=== PATIENT | male | born 1960 | race Caucasian/White ===

== ENCOUNTER 2021-07-14 18:00 | Emergency (ER) | payer MEDICARE ==
[~2021-07-14] VITALS: Ht 175.3 cm; Wt 110.0 kg
--- NOTE | 2021-07-14 18:17 | PHYS DOC ---
General Adult EDM: Chief Complaint: ABNORMAL LABS HPI: HPI: Patient is a 61 year old male who is here for evaluation of low hemoglobin. He had outpatient labs drawn 2 days ago at one of his physician offices, and he received a call this afternoon telling him that he has persistent anemia, and that he should be set up for a transfusion. His hemoglobin is reportedly in the range of 7, further information he was given today. He has baseline hemoglobin ranges from 9-12, based on review of his MyChart results he showed me on his phone. His knowledge, he has not ever had a formal anemia work-up. He is unsure of the type of anemia he might have. But he has been told for years that he has a low hemoglobin. He denies any physical pain or discomfort. Denies abdominal pain. Denies chest pain. Denies dyspnea. Denies melena or hematochezia or hematemesis. Denies hematuria. He denies urinary symptoms. He denies weight loss, night sweats. He does report generalized fatigue and malaise, which is been present for many months. He had a message from his physi aisha's office telling him to get set up for a transfusion, and when he called them back he reports that he was told by the nurse to come to the ER to receive blood products. Review of Systems: Review of Systems: Constitutional: Denies fever or chills. Reports chronic generalized malaise and fatigue. Denies weight loss. Eyes: Denies change in visual acuity. [] HENT: Denies nasal congestion or sore throat. [] Respiratory: Denies cough or shortness of breath. [] Cardiovascular: Denies chest pain or edema. [] GI: Denies abdominal pain, nausea, vomiting, bloody stools or diarrhea. Denies melena or hematochezia. Denies hematemesis. : Denies dysuria, hematuria. Musculoskeletal: Denies back pain or joint pain. [] Integument: Denies rash. [] Neurologic: Denies headache, focal weakness or sensory changes. [] Endocrine: Denies polyuria or polydipsia. [] Lymphatic: Denies swollen glands. [] Psychiatric: Denies depression or anxiety. [] Heart Score: C/O Chest Pain: No Risk Factors: Risk Factors: DM, Current or recent (<one month) smoker, HTN, HLP, family history of CAD, obesity. Risk Scores: Score 0 - 3: 2.5% MACE over next 6 weeks - Discharge Home Score 4 - 6: 20.3% MACE over next 6 weeks - Admit for Clinical Observation Score 7 - 10: 72.7% MACE over next 6 weeks - Early Invasive Strategies Physical Exam: PE: Constitutional: Well developed, well nourished, no acute distress, non-toxic appearance. [] HENT: Normocephalic, atraumatic, mucous membranes are moist. Eyes: Sclera are clear and anicteric. No significant conjunctival pallor. Neck: Normal range of motion, no tenderness, supple, no stridor. [] Cardiovascular:Heart rate regular rhythm, +2 radial ulcers bilaterally. Well- perfused appearing. Lungs & Thorax: Bilateral breath sounds clear to auscultation [] Abdomen: Is obese, soft, nondistended, nontender to palpation. Normal bowel sounds noted. Skin: Warm, dry, no erythema, no rash. [] Back: No tenderness, no CVA tenderness. [] Extremities: No tenderness, no cyanosis, no clubbing, ROM intact, no calf tenderness. Neurologic: Alert and oriented X 3, normal motor function, normal sensory function, no focal deficits noted. [] Psychologic: Affect normal, judgement normal, mood normal. [] EKG: EKG: [] Radiology/Procedures: Radiology/Procedures: [] Course & Med Decision Making: Course & Med Decision Making Pertinent Labs and Imaging studies reviewed. (See chart for details) [] Dragon Disclaimer: Dragdavid Disclaimer: This electronic medical record was generated, in whole or in part, using a voice recognition dictation system. MELLO NELSON DO Jul 14, 2021 18:17
[2021-07-14 18:47] LABS: BASO # 0.1 x10^3/uL (0.0-0.2); BASO % 1 % (0-3); EOS # 0.3 x10^3/uL (0.0-0.7); EOS % 4 % (0-3); HEMATOCRIT 22.4 % (39.0-53.0); HEMOGLOBIN 7.5 g/dL (13.0-17.5); LYMPH # 1.2 x10^3/uL (1.0-4.8); LYMPH % 16 % (24-48); MEAN CORPUSCULAR HEMOGLOBIN 29 pg (25-35); MEAN CORPUSCULAR HGB CONC 34 g/dL (31-37); MEAN CORPUSCULAR VOLUME 87 fL (79-100); MONO # 0.5 x10^3/uL (0.0-1.1); MONO % 7 % (0-9); NEUT # 5.2 x10^3/uL (1.8-7.7); NEUT % 72 % (31-73); PLATELET COUNT 231 x10^3/uL (140-400); RED BLOOD COUNT 2.57 x10^6/uL (4.30-5.70); RED CELL DISTRIBUTION WIDTH 14.1 % (11.5-14.5); WHITE BLOOD COUNT 7.1 x10^3/uL (4.0-11.0)
[2021-07-14 18:58] LABS: CALCIUM 7.7 mg/dL (8.5-10.1); CREATININE 4.2 mg/dL (0.7-1.3); GFR 14.5; POTASSIUM 5.3 mmol/L (3.5-5.1)
[2021-07-14 20:01] VITALS: BP 157/77
[2021-08-03] MEDS ORDERED: LEVO200T5 PO (10:25)
[2021-08-03] MEDS ORDERED: CALC0.5C8 PO (10:25)
[2021-08-03] MEDS ORDERED: LOSA100T14 PO (10:25)
[2021-08-03] MEDS ORDERED: TORS20TA2 PO (10:25)
[2021-08-03] MEDS ORDERED: ATOR40TA59 PO (10:25)
[2021-08-03] MEDS ORDERED: HYDR100T24 PO (10:25)
[2021-08-03] MEDS ORDERED: AMLO-187 PO (10:25)
[2021-08-03] MEDS ORDERED: DOXA2TAB2 PO (10:25)
[2021-08-03] MEDS ORDERED: CARV6.2511 PO (10:25)
== END 2021-07-14 20:00 | disposition home or self-care (01) ==
LOC: ER 18:00
DX: D64.9 Anemia, unspecified (principal); R53.81 Other malaise; R53.83 Other fatigue
CPT/HCPCS: 36415; 80048; 83735; 85025; 86850; 86900; 86901; 86920; 99283

== ENCOUNTER 2021-07-21 10:16 | Emergency (ER) | payer MEDICARE ==
[~2021-07-21] VITALS: Ht 175.3 cm; Wt 112.8 kg
--- NOTE | 2021-07-21 10:43 | PHYS DOC ---
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 He states he has been short of breath and has had gen eralized fatigue. Patient states he has been taking iron supplement. Patient has a history of Covid, former smoker, kidney disease, anemia, gastric bypass, diabetes, hypertension, high cholesterol. Denies any pain at this time. Denies headache, dizziness, nausea, vomiting, abdominal pain, diarrhea, fever, chest pain, syncope, numbness or tingling, focal weakness. 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 [] Eyes: Denies change in visual acuity. [] HENT: Denies nasal congestion or sore throat. [] Respiratory: Denies cough or +shortness of breath. [] Cardiovascular: Denies chest pain or edema. [] GI: Denies abdominal pain, nausea, vomiting, bloody stools or diarrhea. [] : Denies dysuria. [] Musculoskeletal: Denies back pain or joint pain. [] Integument: Denies rash. [] Neurologic: Denies headache, focal weakness or sensory changes. [] Endocrine: Denies polyuria or polydipsia. [] Lymphatic: Denies swollen glands. [] Psychiatric: Denies depression or anxiety. 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 [] HENT: Normocephalic, atraumatic, bilateral external ears normal, oropharynx moist, no oral exudates, nose normal. [] Eyes: PERRLA, EOMI, conjunctiva normal, no discharge. [] Neck: Normal range of motion, no tenderness, supple, no stridor. [] Cardiovascular:Heart rate regular rhythm, no murmur [] Lungs & Thorax: Bilateral breath sounds clear to auscultation [] Abdomen: Bowel sounds normal, soft, no tenderness, no masses, no pulsatile masses. [] Skin: Warm, dry, no erythema, no rash. Pale [] Back: No tenderness, no CVA tenderness. [] Extremities: No tenderness, no cyanosis, no clubbing, ROM intact, no edema. [] Neurologic: Alert and oriented X 3, normal motor function, normal sensory function, no focal deficits noted. [] Psychologic: Affect normal, judgement normal, mood normal. [] (VERNA VANEGAS APRN) Current Patient Data: Vital Signs: Vital Signs Date Time Temp Pulse Resp B/P (MAP) Pulse Ox O2 Delivery O2 Flow Rate FiO2 07/21/21 10:26 98.4 71 20 182/79 (113) 98 Room Air 98.4 (VERNA VANEGAS APRN) EKG: EK and read by Dr. Jones as a sinus rhythm with a prolonged QT but no STEMI. (VERNA VANEGAS APRN) Radiology/Procedures: Radiology/Procedures: [] Impression: [facility] [address] [place] [address] IMAGING REPORT Signed PATIENT: STEPHANIE GARCIA ACCOUNT: [id number] : 1960 LOCATION: ER AGE: 61 SEX: M EXAM STATUS: PRE ER ORD. PHYSICIAN: VERNA VANEGAS APRN REASON: SOA, DIZZINESS PROCEDURE: PORTABLE CHEST 1V XR CHEST 1V History: Reason: SOA, DIZZINESS / Spl. Instructions: / History: Comparison: April 21, 2021 Findings: Mild ill-defined mid and bibasilar opacities. No pleural effusion. No pneumothorax. Enlarged cardiac size, unchanged. Prior granulomatous disease within the chest. Impression: 1. Mild ill-defined mid and bibasilar opacities. Findings are overall decreased compared to prior. 2. Unchanged enlarged cardiac size. Electronically signed by: Ortiz Doe DO (07/21/2021 11:11 AM) [id number] DICTATED and SIGNED BY: ORTIZ DOE DO DATE: 07/21/21 [id number] (VERNA VANEGAS APRN) Course & Med Decision Making: Course & Med Decision Making Pertinent Labs and Imaging studies reviewed. (See chart for details) See HPI. Alert and oriented x4. Ambulatory steady gait. Speaks in full clear sentences. Pale. Lungs are clear in all lobes. Afebrile. Blood work shows chronic findings. Hemoglobin is 7.4. Chest x-ray stable. [] (VERNA VANEGAS APRN) Course & Med Decision Making I have participated in the care of this patient and I have reviewed and agree with all pertinent clinical information above including history, exam, and recommendations. Nephrology was consulted, discussed care with Dr. Cunningham, nothing else to do from nephrology standpoint today per Dr. Cunningham. Proceeded with plan to discharge. Clair Jones DO (CLAIR JONES DO) Dragon Disclaimer: Dragdavid Disclaimer: This electronic medical record was generated, in whole or in part, using a voice recognition dictation system. (VERNA VANEGAS APRN) Departure Departure Impression: Primary Impression: Chronic anemia Disposition: 01 HOME / SELF CARE / HOMELESS Admitting Physician: ARJUN (VERNA VANEGAS APRN) Condition: STABLE Referrals: CANDELARIO FLORES MD (PCP) Patient Instructions: Anemia, FAQs Additional Instructions: Follow-up with your primary care provider. If shortness of breath or you become dizzy or have chest pain return to emergency room. Drink plenty of fluids. Take your medication as prescribed. VERNA VANEGAS APRN Jul 21, 2021 10:43 CLAIR JONES DO Jul 21, 2021 12:05
[2021-07-21 10:54] LABS: BASO % 1 % (0-3); EOS # 0.3 x10^3/uL (0.0-0.7); EOS % 4 % (0-3); HEMATOCRIT 23.1 % (39.0-53.0); HEMOGLOBIN 7.4 g/dL (13.0-17.5); LYMPH # 1.4 x10^3/uL (1.0-4.8); LYMPH % 20 % (24-48); MEAN CORPUSCULAR HEMOGLOBIN 28 pg (25-35); MEAN CORPUSCULAR HGB CONC 32 g/dL (31-37); MEAN CORPUSCULAR VOLUME 88 fL (79-100); MONO # 0.8 x10^3/uL (0.0-1.1); MONO % 11 % (0-9); NEUT # 4.7 x10^3/uL (1.8-7.7); NEUT % 65 % (31-73); PLATELET COUNT 260 x10^3/uL (140-400); RED BLOOD COUNT 2.63 x10^6/uL (4.30-5.70); RED CELL DISTRIBUTION WIDTH 14.3 % (11.5-14.5); WHITE BLOOD COUNT 7.3 x10^3/uL (4.0-11.0)
[2021-07-21 11:02] LABS: CALCIUM 7.9 mg/dL (8.5-10.1); GFR 15.4; POTASSIUM 5.1 mmol/L (3.5-5.1)
[2021-07-21 11:08] LABS: ALBUMIN 3.2 g/dL (3.4-5.0); ALBUMIN/GLOBULIN RATIO 0.9 (1.0-1.7); TOTAL BILIRUBIN 0.4 mg/dL (0.2-1.0); TOTAL PROTEIN 6.9 g/dL (6.4-8.2)
--- NOTE | 2021-07-21 11:13 | RAD ---
XR CHEST 1V History: Reason: SOA, DIZZINESS / Spl. Instructions: / History: Comparison: April 21, 2021 Findings: Mild ill-defined mid and bibasilar opacities. No pleural effusion. No pneumothorax. Enlarged cardiac size, unchanged. Prior granulomatous disease within the chest. Impression: 1. Mild ill-defined mid and bibasilar opacities. Findings are overall decreased compared to prior. 2. Unchanged enlarged cardiac size. Electronically signed by: Ortiz Doe DO (07/21/2021 11:11 AM) [id number]
[2021-07-21 11:25] VITALS: BP 168/72
--- NOTE | 2021-07-21 18:05 | EKG ---
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
[2021-08-03] MEDS ORDERED: TORS20TA2 PO (10:25)
[2021-08-03] MEDS ORDERED: CALC0.5C8 PO (10:25)
[2021-08-03] MEDS ORDERED: AMLO-187 PO (10:25)
[2021-08-03] MEDS ORDERED: DOXA2TAB2 PO (10:25)
[2021-08-03] MEDS ORDERED: CARV6.2511 PO (10:25)
[2021-08-03] MEDS ORDERED: LEVO200T5 PO (10:25)
[2021-08-03] MEDS ORDERED: LOSA100T14 PO (10:25)
[2021-08-03] MEDS ORDERED: ATOR40TA59 PO (10:25)
[2021-08-03] MEDS ORDERED: HYDR100T24 PO (10:25)
== END 2021-07-21 11:53 | disposition home or self-care (01) ==
LOC: ER 10:16
DX: D64.9 Anemia, unspecified (principal); R06.02 Shortness of breath; R53.83 Other fatigue; Z87.891 Personal history of nicotine dependence
CPT/HCPCS: 36415; 71045; 80053; 83735; 83880; 84484; 85025; 93005; 99283-25

== ENCOUNTER → 2021-08-09 | Outpatient (CLI) | payer MEDICARE ==
[2021-08-03 09:53] VITALS: BP 149/64
[~2021-08-09] MED LIST: AMLO-187 PO; ATOR40TA59 PO; CALC0.5C8 PO; CARV6.2511 PO; DOXA2TAB2 PO; HYDR100T24 PO; LEVO200T5 PO; LOSA100T14 PO; TORS20TA2 PO
[2021-08-09 13:59] LABS: HEMATOCRIT 22.2 % (39.0-53.0); HEMOGLOBIN 7.2 g/dL (13.0-17.5)
== END ==
LOC: LAB 13:32
PROVIDERS: ATTEND Internal Medicine Nephrology
DX: N18.32 Chronic kidney disease, stage 3b (principal); D63.1 Anemia in chronic kidney disease
CPT/HCPCS: 36415; 82728; 83540; 83550; 85014; 85018

== ENCOUNTER → 2021-08-17 | Outpatient (CLI) | payer MEDICARE ==
[2021-08-03 09:53] VITALS: BP 149/64
[2021-08-17 11:55] LABS: ALBUMIN 2.6 g/dL (3.4-5.0); CALCIUM 7.7 mg/dL (8.5-10.1); CREATININE 3.5 mg/dL (0.7-1.3); PHOSPHORUS 4.6 mg/dL (2.6-4.7); POTASSIUM 4.6 mmol/L (3.5-5.1)
[2021-08-18 11:19] LABS: CALCIUM PTH 8.1 mg/dL (8.6-10.2); CREATININE PTH 3.57 mg/dL (0.76-1.27); PHOSPHORUS PTH 4.4 mg/dL (2.8-4.1); PTH INTACT 210 pg/mL (15-65)
== END ==
LOC: LAB 11:11
PROVIDERS: ATTEND Internal Medicine Nephrology
DX: I12.9 Hypertensive chronic kidney disease with stage 1 through stage 4 chronic kidney disease, or unspecified chronic kidney disease (principal); E11.21 Type 2 diabetes mellitus with diabetic nephropathy; N18.4 Chronic kidney disease, stage 4 (severe); R80.9 Proteinuria, unspecified; E87.5 Hyperkalemia; E21.3 Hyperparathyroidism, unspecified; D63.1 Anemia in chronic kidney disease; E87.2 Acidosis; Z68.35 Body mass index [BMI] 35.0-35.9, adult
CPT/HCPCS: 36415; 80069; 82728; 83540; 83550; 83970

== ENCOUNTER → 2021-10-03 | Outpatient (CLI) | payer MEDICARE ==
[2021-09-28 14:44] VITALS: BP 164/78
[2021-10-03 13:59] LABS: BASO # 0.1 x10^3/uL (0.0-0.2); BASO % 2 % (0-3); EOS # 0.2 x10^3/uL (0.0-0.7); EOS % 4 % (0-3); HEMOGLOBIN 7.9 g/dL (13.0-17.5); LYMPH # 0.8 x10^3/uL (1.0-4.8); LYMPH % 13 % (24-48); MEAN CORPUSCULAR HEMOGLOBIN 28 pg (25-35); MEAN CORPUSCULAR HGB CONC 32 g/dL (31-37); MEAN CORPUSCULAR VOLUME 88 fL (79-100); MONO # 0.4 x10^3/uL (0.0-1.1); MONO % 8 % (0-9); NEUT # 4.2 x10^3/uL (1.8-7.7); NEUT % 73 % (31-73); PLATELET COUNT 256 x10^3/uL (140-400); RED BLOOD COUNT 2.84 x10^6/uL (4.30-5.70); RED CELL DISTRIBUTION WIDTH 14.6 % (11.5-14.5); WHITE BLOOD COUNT 5.7 x10^3/uL (4.0-11.0)
[2021-10-03 14:21] LABS: ALBUMIN 2.8 g/dL (3.4-5.0); CALCIUM 7.4 mg/dL (8.5-10.1); CREATININE 4.1 mg/dL (0.7-1.3); PHOSPHORUS 5.9 mg/dL (2.6-4.7); POTASSIUM 5.8 mmol/L (3.5-5.1)
[2021-10-04 01:09] LABS: CALCIUM PTH 7.9 mg/dL (8.6-10.2); CREATININE PTH 4.01 mg/dL (0.76-1.27); PHOSPHORUS PTH 5.6 mg/dL (2.8-4.1); PTH INTACT 232 pg/mL (15-65)
== END ==
LOC: LAB 13:23
PROVIDERS: ATTEND Nurse Practitioner Adult Health
DX: I12.9 Hypertensive chronic kidney disease with stage 1 through stage 4 chronic kidney disease, or unspecified chronic kidney disease (principal); E11.22 Type 2 diabetes mellitus with diabetic chronic kidney disease; E11.21 Type 2 diabetes mellitus with diabetic nephropathy; N18.4 Chronic kidney disease, stage 4 (severe); R80.9 Proteinuria, unspecified; E87.5 Hyperkalemia; E21.3 Hyperparathyroidism, unspecified; Z68.33 Body mass index [BMI] 33.0-33.9, adult
CPT/HCPCS: 36415; 80069; 83970; 85025

== ENCOUNTER 2021-11-03 17:24 | Inpatient (IN) | payer MEDICARE ==
[~2021-11-03] VITALS: Ht 175.3 cm; Wt 91.7 kg
[2021-11-03 17:53] LABS: BASE EXCESS ABG -13 mmol/L (-3-3); HCO3 ABG 13 mmol/L (21-28); PCO2 ABG 31 mmHg (35-46); PO2 ABG 66 mmHg (65-108); SAT O2 ABG 91 % (92-99)
[2021-11-03 17:54] LABS: FIO2 ABG 32% 3L NC
[2021-11-03] MEDS ORDERED: IV NORMAL SALINE 500ML BAG 500 ML IV ONE (18:00)
[2021-11-03 18:15] LABS: INFLUENZA A PATIENT NEGATIVE (NEGATIVE); INFLUENZA B PATIENT NEGATIVE (NEGATIVE)
[2021-11-03 18:24] LABS: BASO # 0.1 x10^3/uL (0.0-0.2); BASO % 1 % (0-3); EOS # 0.1 x10^3/uL (0.0-0.7); EOS % 1 % (0-3); HEMATOCRIT 23.9 % (39.0-53.0); HEMOGLOBIN 7.8 g/dL (13.0-17.5); LYMPH # 0.6 x10^3/uL (1.0-4.8); LYMPH % 6 % (24-48); MEAN CORPUSCULAR HEMOGLOBIN 28 pg (25-35); MEAN CORPUSCULAR HGB CONC 33 g/dL (31-37); MEAN CORPUSCULAR VOLUME 85 fL (79-100); MONO # 0.8 x10^3/uL (0.0-1.1); MONO % 8 % (0-9); NEUT # 8.5 x10^3/uL (1.8-7.7); NEUT % 85 % (31-73); PLATELET COUNT 412 x10^3/uL (140-400); RED BLOOD COUNT 2.81 x10^6/uL (4.30-5.70); RED CELL DISTRIBUTION WIDTH 15.3 % (11.5-14.5); WHITE BLOOD COUNT 10.1 x10^3/uL (4.0-11.0)
[2021-11-03 18:32] LABS: CALCIUM 7.7 mg/dL (8.5-10.1); CREATININE 4.4 mg/dL (0.7-1.3); GFR 13.8; POTASSIUM 5.3 mmol/L (3.5-5.1)
[2021-11-03 18:38] LABS: ALBUMIN 2.4 g/dL (3.4-5.0); ALBUMIN/GLOBULIN RATIO 0.6 (1.0-1.7); TOTAL BILIRUBIN 0.5 mg/dL (0.2-1.0); TOTAL PROTEIN 6.3 g/dL (6.4-8.2)
--- NOTE | 2021-11-03 18:40 | PHYS DOC ---
Past Medical History Additional Past Medical Histor: CKD,COVID-19 Past Surgical History: Other Additional Past Surgical Histo: GASTRIC BYPASS,RENAL INSUFFIENCY,R FOOT 05/06 @ [facility] Smoking Status: Former Smoker Alcohol Use: Rarely General Adult EDM: Chief Complaint: SHORTNESS OF BREATH HPI: HPI: Patient is a 61 year old male who presents with chronic pruritus for the last week and recently returned. He states the whole time he was stayed in the cabin room most of the. He states he just has not been feeling well and has been short of breath and coughing up green mucus. He states that he has been tested for Covid 3 times in the last 3 weeks level came back negative. Upon arrival patient was 80% on room air. He does not normally wear oxygen. He is placed on 3 L and is at 92%. He has a left arm fistula. He has not had dialysis yet. He does see Dr. Che for CKD. He has a history of CKD, COVID-19, gastric bypass, renal insufficiency, former smoker, sleep apnea for which she wears a CPAP at night. Review of Systems: Review of Systems: Constitutional: Denies fever or chills. [] Eyes: Denies change in visual acuity. [] HENT: Denies nasal congestion or +sore throat. [] Respiratory: Denies cough or +shortness of breath. [] Cardiovascular: Denies chest pain or edema. [] GI: Denies abdominal pain, nausea, vomiting, bloody stools or diarrhea. [] : Denies dysuria. [] Musculoskeletal: Denies back pain or joint pain. [] Integument: Denies rash. [] Neurologic: + headache, denies focal weakness or sensory changes. [] Endocrine: Denies polyuria or polydipsia. [] Lymphatic: Denies swollen glands. [] Psychiatric: Denies depression or anxiety. [] Heart Score: C/O Chest Pain: No HEART Score for Chest Pain: HEART Score for Chest Pain Response (Comments) Value History Slighlty/Non-Suspicious 0 ECG Nonspecific Repolarizatio 1 Age >45 - < 65 1 Risk Factors No Risk Factors 0 Troponin < Normal Limit 0 Total 2 Risk Factors: Risk Factors: DM, Current or recent (<one month) smoker, HTN, HLP, family history of CAD, obesity. Risk Scores: Score 0 - 3: 2.5% MACE over next 6 weeks - Discharge Home Score 4 - 6: 20.3% MACE over next 6 weeks - Admit for Clinical Observation Score 7 - 10: 72.7% MACE over next 6 weeks - Early Invasive Strategies Current Medications: Current Medications Medications (Trade) Dose Ordered Sig/Catherine Start Time Stop Time Status Last Admin Dose Admin Sodium Chloride 500 ml @ 500 mls/hr 1X ONCE 11/03/21 18:00 11/03/21 18:59 Allergies: Allergies: Allergies Coded Allergies Type Severity Reaction Last Updated Verified No Known Drug Allergies 10/12/21 No Physical Exam: PE: Constitutional: Well developed, well nourished, no acute distress, non-toxic appearance. [] HENT: Normocephalic, atraumatic, bilateral external ears normal, oropharynx moist, no oral exudates, nose normal. [] Eyes: PERRLA, EOMI, conjunctiva normal, no discharge. [] Neck: Normal range of motion, no tenderness, supple, no stridor. [] Cardiovascular:Heart rate regular rhythm, no murmur [] Lungs & Thorax: Bilateral upper breath sounds clear and lower diminished to auscultation [] Abdomen: Bowel sounds normal, soft, no tenderness, no masses, no pulsatile masses. [] Skin: Warm, dry, no erythema, no rash. [] Back: No tenderness, no CVA tenderness. [] Extremities: No tenderness, no cyanosis, no clubbing, ROM intact, no edema. [] Neurologic: Alert and oriented X 3, normal motor function, normal sensory function, no focal deficits noted. [] Psychologic: Affect normal, judgement normal, mood normal. [] Current Patient Data: Labs: Laboratory Tests Test 11/03/21 17:54 O2 Saturation 91 % (92-99) L Arterial Blood pH 7.24 (7.35-7.45) L Arterial Blood pCO2 at Patient Temp 31 mmHg (35-46) L Arterial Blood pO2 at Patient Temp 66 mmHg (65-108) Arterial Blood HCO3 13 mmol/L (21-28) L Arterial Blood Base Excess -13 mmol/L (-3-3) L FiO2 32% 3l nc EKG: EK and read by Dr. Fernandez as sinus rhythm and no STEMI Radiology/Procedures: Radiology/Procedures: [] Impression: [facility] [address] [place] [address] IMAGING REPORT Signed PATIENT: STEPHANIE GARCIA ACCOUNT: [id number] : 1960 LOCATION: [address] [place] [address] AGE: 61 SEX: M EXAM STATUS: ADM IN ORD. PHYSICIAN: VERNA VANEGAS APRN REASON: SOA PROCEDURE: PORTABLE CHEST 1V INDICATION: Reason: SOA / Spl. Instructions: / History: COMPARISON: July 21, 2021 FINDINGS: Single view of chest obtained. Enlarged cardiomediastinal silhouette is again seen. Multifocal opacities throughout the bilateral lungs. Degenerative changes spine IMPRESSION: * Multifocal opacities throughout the bilateral lungs. This could be secondary to bilateral pneumonia with edema also in the differential. Electronically signed by: Ross Finn MD (11/03/2021 9:49 PM) [id number] DICTATED and SIGNED BY: ROSS FINN MD DATE: 11/03/21 [id number] 0 Course & Med Decision Making: Course & Med Decision Making Pertinent Labs and Imaging studies reviewed. (See chart for details) See HPI. Alert and oriented x4. Speaks in full clear sentences. Skin pink warm and dry. Lungs are clear in upper lobes and diminished in lower lobes. Bilateral lower leg 2+ swelling. Afebrile. Patient on 3 L is 92%. Troponin is elevated at 304 and I have called Dr. Sheikh and sent him the EKG. He states nothing else to do at this time. Patient is admitted to Dr. Scruggs. I have given the patient azithromycin and Rocephin antibiotic and 500 mL bolus fluid. Patient has now been placed on 6 L of oxygen he is getting anxious but he is at 91-92%. He is coughing up green sputum. I have spoken to Dr Rahman to to let them know that the patient is here and the findings upon examination and his work-up today. They state that they will follow along and check on him in the morning. Chest x-ray read by Dr. Kumari as multifocal pneumonia. 2006: Patient began to desat off of 6 L down into the 80s. Patient was placed on a nonrebreather and he is now 91%. I have called respiratory for BiPAP. Per Dr. Kumari we have now given 60 mg of Lasix IV. Patient is a full code and states he does want everything done for him if he were to stop breathing or if his heart were to stop. [] Dragon Disclaimer: Dragon Disclaimer: This electronic medical record was generated, in whole or in part, using a voice recognition dictation system. COVID-19 Patient Risks: Age 65 or older: No Sign of co-morbidity: Yes Exp to person + for COVID: No Exp to PUI: No Travel from affected area: Yes Lower respiratory symptoms: Yes Fever: No Other: Yes (headache, ) PPE Use: Full PPE with N95 mask or PAPR: Yes Departure Departure Impression: Primary Impression: Pneumonia Qualified Codes: J18.9 - Pneumonia, unspecified organism Additional Impressions: Hypoxia Person under investigation for COVID-19 Elevated troponin Disposition: ADMITTED INPATIENT Admitting Physician: ARJUN Condition: STABLE Referrals: ACNDELARIO FLORES MD (PCP) VERNA VANEGAS BLENDING OPERATOR Nov 03, 2021 18:39
[2021-11-03] MEDS ORDERED: IPRATRPIUM/ALBUTEROL 0.5/2.5MG 3 ML NEBU. NEB ONE (19:00)
[2021-11-03] MEDS ORDERED: AZITHROMYCIN 500 MG in IV NORMAL SALINE 250ML 250 ML IV ONE (19:00)
[2021-11-03] MEDS ORDERED: cefTRIAXone IV Push 1 GM VIAL. IVP ONE (19:00)
[2021-11-03] MEDS ORDERED: methylPREDNISolone SOD SUCC PF 125 MG/2 ML VIAL. IV ONE (19:00)
[2021-11-03] MEDS ORDERED: FUROSEMIDE 100 MG/10 ML VIAL. ONE (20:04)
[2021-11-03] MEDS ORDERED: FUROSEMIDE 40 MG/4 ML VIAL. IVP ONE (20:15)
--- NOTE | 2021-11-03 21:51 | RAD ---
INDICATION: Reason: SOA / Spl. Instructions: / History: COMPARISON: July 21, 2021 FINDINGS: Single view of chest obtained. Enlarged cardiomediastinal silhouette is again seen. Multifocal opacities throughout the bilateral lungs. Degenerative changes spine IMPRESSION: * Multifocal opacities throughout the bilateral lungs. This could be secondary to bilateral pneumoni a with edema also in the differential. Electronically signed by: Jarod Turk MD (11/03/2021 9:49 PM) [id number]
[2021-11-03 23:13] VITALS: BP 101/79
[2021-11-04] VITALS (7 sets, daily range): BP systolic 101–157; BP diastolic 46–69
[2021-11-04] MEDS ORDERED: TRAM50TA PO (02:05)
[2021-11-04] MEDS ORDERED: CYAN500T7 PO (02:06)
[2021-11-04] MEDS ORDERED: FERR325T14 PO (02:11)
[2021-11-04] MEDS ORDERED: TURM538C PO (02:11)
--- NOTE | 2021-11-04 09:44 | PDOC1 ---
History and Physical Date of Service: DOS: DATE: 11/04/21 TIME: 09:35 Chief Complaint: Chief Complain: Shortness of breath History of Present Illness: HPI: History obtained from discussion with the ED physician and chart review 61 year old male who presents with chronic pruritus for the last week and recently returned. He states the whole time he was stayed in the cabin room most of the. He states he just has not been feeling well and has been short of breath and coughing up green mucus. He states that he has been tested for Covid 3 times in the last 3 weeks level came back negative. Upon arrival patient was 80% on room air. He does not normally wear oxygen. He is placed on 3 L and is at 92%. He has a left arm fistula. He has not had dialysis yet. He does see Dr. Che for CKD. He has a history of CKD, COVID-19, gastric bypass, renal insufficiency, former smoker, sleep apnea for which she wears a CPAP at night. Past Medical/Surgical History: PMH/PSH: Additional Past Medical Histor: CKD,COVID-19 Past Surgical History: GASTRIC BYPASS,RENAL INSUFFIENCY,R FOOT 05/06 @ [facility] Allergies: Allergies: Coded Allergies: No Known Drug Allergies (Unverified , 10/12/21) Family History: Family History: Reviewed with no relevant findings in the chart Social History: Social History: Former smoker Current Medications: Current Medications Current Medications Sodium Chloride 500 ml @ 500 mls/hr 1X ONCE IV Last administered on 11/03/21at 18:27; Start 11/03/21 at 18:00; Stop 11/03/21 at 18:59; Status DC Azithromycin 500 mg/Sodium Chloride 250 ml @ 250 mls/hr 1X ONCE IV Last administered on 11/03/21at 19:23; Start 11/03/21 at 19:00; Stop 11/03/21 at 19:59; Status DC Ceftriaxone Sodium (Rocephin) 1 gm 1X ONCE IVP Last administered on 11/03/21at 19:20; Start 11/03/21 at 19:00; Stop 11/03/21 at 19:01; Status DC Albuterol/ Ipratropium (Duoneb) 6 ml 1X ONCE NEB Last administered on 11/03/21at 19:24; Start 11/03/21 at 19:00; Stop 11/03/21 at 19:01; Status DC Methylprednisolone Sodium Succinate (SOLU-Medrol 125MG VIAL) 125 mg 1X ONCE IV Last administered on 11/03/21at 19:19; Start 11/03/21 at 19:00; Stop 11/03/21 at 19:01; Status DC Furosemide (Lasix) 60 mg 1X ONCE IVP Last administered on 11/03/21at 20:07; Start 11/03/21 at 20:15; Stop 11/03/21 at 20:16; Status DC Furosemide (Lasix) 100 mg STK-MED ONCE .ROUTE ; Start 11/03/21 at 20:04; Stop 11/03/21 at 20:04; Status DC Active Scripts Active Reported Turmeric (Turmeric Root Extract) 538 Mg Capsule 538 Mg PO DAILY Ferrous Sulfate 325 Mg Tablet 1 Tab PO DAILY Vitamin B-12 (Cyanocobalamin (Vitamin B-12)) 500 Mcg Tablet 1 Tab PO DAILY 30 Days Tramadol Hcl 50 Mg Tablet 50 Mg PO Q6HRS PRN Torsemide 20 Mg Tablet 1 Tab PO DAILY Losartan Potassium 100 Mg Tablet 100 Mg PO DAILY Doxazosin Mesylate 2 Mg Tablet 1 Tab PO DAILY Calcitriol 0.5 Mcg Capsule 1 Cap PO DAILY Carvedilol (Carvedilol) 6.25 Mg Tablet 6.25 Mg PO BIDWMEALS Atorvastatin Calcium 40 Mg Tablet 1 Tab PO DAILY Levothyroxine Sodium 200 Mcg Tablet 1 Tab PO DAILY Hydralazine Hcl 100 Mg Tablet 1 Tab PO TID Amlodipine Besylate 10 Mg Tablet 10 Mg PO DAILY ROS: Review of Systems Review of System REVIEW OF SYSTEMS: GENERAL: Denies weakness SKIN: No bruising, hair changes or rashes. EYES: No blurred, double or loss of vision. NOSE AND THROAT: No history of nosebleeds, hoarseness or sore throat. HEART: No history of palpitations, chest pain or shortness of breath on exertion. LUNGS: Shortness of breath GASTROINTESTINAL: Denies changes in appetite, nausea, vomiting, diarrhea or constipation. GENITOURINARY: No history of frequency, urgency, hesitancy or nocturia. NEUROLOGIC: Denies history of numbness, tingling, or tremor. PSYCHIATRIC: No history of panic, anxiety or depression. ENDOCRINE: No history of heat or cold intolerance, polyuria or polydipsia. EXTREMITIES: Denies joint pain, pain on walking or stiffness. Physical Exam: Vital Signs: Vital Signs Date Time Temp Pulse Resp B/P (MAP) Pulse Ox O2 Delivery O2 Flow Rate FiO2 11/04/21 09:28 100 BiPAP/CPAP 11/04/21 07:00 96.4 80 21 141/68 (92) 96.4 11/03/21 23:13 7.0 Physcial Exam: General: Well developed, well nourished, no acute distress, well appearing HEENT: Pupils equally round and reactive to light, EOMI, no discharge, normal conjunctiva Neck: Supple, no nuchal rigidity, no JVD, trachea midline, no tenderness Cardiac: RRR, no murmurs, no gallops, no rubs Chest/Lungs: CTAB, no wheeze, no rhonchi, no crackles Abdomen: soft, non-distended, no guarding, no peritoneal signs, non-tender Back: No tenderness Extremities: no edema, pulses intact, non-tender,capillary refill <3 sec bilateral upper and lower extremities, Neuro: Alert and oriented x 4, no focal deficits, normal speech Labs: Labs: Laboratory Tests Test 11/03/21 17:38 11/03/21 17:54 11/03/21 18:05 11/03/21 20:45 Influenza Type A Antigen Negative (NEGATIVE) Influenza Type B Antigen Negative (NEGATIVE) SARS-CoV-2 Antigen (Rapid) Negative (NEGATIVE) O2 Saturation 91 % (92-99) Arterial Blood pH 7.24 (7.35-7.45) Arterial Blood pCO2 at Patient Temp 31 mmHg (35-46) Arterial Blood pO2 at Patient Temp 66 mmHg (65-108) Arterial Blood HCO3 13 mmol/L (21-28) Arterial Blood Base Excess -13 mmol/L (-3-3) FiO2 32% 3l nc White Blood Count 10.1 x10^3/uL (4.0-11.0) Red Blood Count 2.81 x10^6/uL (4.30-5.70) Hemoglobin 7.8 g/dL (13.0-17.5) Hematocrit 23.9 % (39.0-53.0) Mean Corpuscular Volume 85 fL (79-100) Mean Corpuscular Hemoglobin 28 pg (25-35) Mean Corpuscular Hemoglobin Concent 33 g/dL (31-37) Red Cell Distribution Width 15.3 % (11.5-14.5) Platelet Count 412 x10^3/uL (140-400) Neutrophils (%) (Auto) 85 % (31-73) Lymphocytes (%) (Auto) 6 % (24-48) Monocytes (%) (Auto) 8 % (0-9) Eosinophils (%) (Auto) 1 % (0-3) Basophils (%) (Auto) 1 % (0-3) Neutrophils # (Auto) 8.5 x10^3/uL (1.8-7.7) Lymphocytes # (Auto) 0.6 x10^3/uL (1.0-4.8) Monocytes # (Auto) 0.8 x10^3/uL (0.0-1.1) Eosinophils # (Auto) 0.1 x10^3/uL (0.0-0.7) Basophils # (Auto) 0.1 x10^3/uL (0.0-0.2) Sodium Level 142 mmol/L (136-145) Potassium Level 5.3 mmol/L (3.5-5.1) Chloride Level 109 mmol/L (98-107) Carbon Dioxide Level 15 mmol/L (21-32) Anion Gap 18 (6-14) Blood Urea Nitrogen 89 mg/dL (8-26) Creatinine 4.4 mg/dL (0.7-1.3) Estimated GFR (Cockcroft-Gault) 13.8 BUN/Creatinine Ratio 20 (6-20) Glucose Level 105 mg/dL (70-99) Lactic Acid Level 0.8 mmol/L (0.4-2.0) Calcium Level 7.7 mg/dL (8.5-10.1) Total Bilirubin 0.5 mg/dL (0.2-1.0) Aspartate Amino Transf (AST/SGOT) 5 U/L (15-37) Alanine Aminotransferase (ALT/SGPT) 14 U/L (16-63) Alkaline Phosphatase 76 U/L (46-116) Troponin I High Sensitivity 304 ng/L (4-75) 311 ng/L (4-75) PX-Jkk-Q-Type Natriuretic Peptide > 96738 pg/mL (0-124) Total Protein 6.3 g/dL (6.4-8.2) Albumin 2.4 g/dL (3.4-5.0) Albumin/Globulin Ratio 0.6 (1.0-1.7) Test 11/04/21 01:15 Troponin I High Sensitivity 432 ng/L (4-75) Laboratory Tests Test 11/03/21 17:38 11/03/21 17:54 11/03/21 18:05 11/03/21 20:45 Influenza Type A Antigen Negative (NEGATIVE) Influenza Type B Antigen Negative (NEGATIVE) SARS-CoV-2 Antigen (Rapid) Negative (NEGATIVE) O2 Saturation 91 % (92-99) Arterial Blood pH 7.24 (7.35-7.45) Arterial Blood pCO2 at Patient Temp 31 mmHg (35-46) Arterial Blood pO2 at Patient Temp 66 mmHg (65-108) Arterial Blood HCO3 13 mmol/L (21-28) Arterial Blood Base Excess -13 mmol/L (-3-3) FiO2 32% 3l nc White Blood Count 10.1 x10^3/uL (4.0-11.0) Red Blood Count 2.81 x10^6/uL (4.30-5.70) Hemoglobin 7.8 g/dL (13.0-17.5) Hematocrit 23.9 % (39.0-53.0) Mean Corpuscular Volume 85 fL (79-100) Mean Corpuscular Hemoglobin 28 pg (25-35) Mean Corpuscular Hemoglobin Concent 33 g/dL (31-37) Red Cell Distribution Width 15.3 % (11.5-14.5) Platelet Count 412 x10^3/uL (140-400) Neutrophils (%) (Auto) 85 % (31-73) Lymphocytes (%) (Auto) 6 % (24-48) Monocytes (%) (Auto) 8 % (0-9) Eosinophils (%) (Auto) 1 % (0-3) Basophils (%) (Auto) 1 % (0-3) Neutrophils # (Auto) 8.5 x10^3/uL (1.8-7.7) Lymphocytes # (Auto) 0.6 x10^3/uL (1.0-4.8) Monocytes # (Auto) 0.8 x10^3/uL (0.0-1.1) Eosinophils # (Auto) 0.1 x10^3/uL (0.0-0.7) Basophils # (Auto) 0.1 x10^3/uL (0.0-0.2) Sodium Level 142 mmol/L (136-145) Potassium Level 5.3 mmol/L (3.5-5.1) Chloride Level 109 mmol/L (98-107) Carbon Dioxide Level 15 mmol/L (21-32) Anion Gap 18 (6-14) Blood Urea Nitrogen 89 mg/dL (8-26) Creatinine 4.4 mg/dL (0.7-1.3) Estimated GFR (Cockcroft-Gault) 13.8 BUN/Creatinine Ratio 20 (6-20) Glucose Level 105 mg/dL (70-99) Lactic Acid Level 0.8 mmol/L (0.4-2.0) Calcium Level 7.7 mg/dL (8.5-10.1) Total Bilirubin 0.5 mg/dL (0.2-1.0) Aspartate Amino Transf (AST/SGOT) 5 U/L (15-37) Alanine Aminotransferase (ALT/SGPT) 14 U/L (16-63) Alkaline Phosphatase 76 U/L (46-116) Troponin I High Sensitivity 304 ng/L (4-75) 311 ng/L (4-75) NQ-Hem-F-Type Natriuretic Peptide > 81219 pg/mL (0-124) Total Protein 6.3 g/dL (6.4-8.2) Albumin 2.4 g/dL (3.4-5.0) Albumin/Globulin Ratio 0.6 (1.0-1.7) Test 11/04/21 01:15 Troponin I High Sensitivity 432 ng/L (4-75) Images: Images PROCEDURE: PORTABLE CHEST 1V INDICATION: Reason: SOA / Spl. Instructions: / History: COMPARISON: July 21, 2021 FINDINGS: Single view of chest obtained. Enlarged cardiomediastinal silhouette is again seen. Multifocal opacities throughout the bilateral lungs. Degenerative changes spine IMPRESSION: * Multifocal opacities throughout the bilateral lungs. This could be secondary to bilateral pneumonia with edema also in the differential. Assessment/Plan Assessment/Plan Acute hypoxic respiratory failure requiring BiPAP support Bilateral pneumonia, possible gram-negative organisms Acute electrolyte derangement consistent with CKD Anemia of CKD Metabolic acidosis History of DARRELL compliant with CPAP History of gastric bypass History of diabetes mellitus type 2, diet controlled History of CKD stage IV not on hemodialysis but has AV fistula in left upper extremity Admit to hospitalist service for further management Nephrology consult Continue empiric IV antibiotics IV diuresis as needed Strict I's/O Avoid nephrotoxic agents Continue with home CPAP for DARRELL Heparin for DVT prophylaxis Protonix GI prophylaxis ADA diet CODE STATUS full Discussed with RN and SW Disposition inpatient management as above DPOA: A total of 45 minutes of critical care time was spent in reviewing chart, labs, and images. Discussed with RN and SW. Justifications for Admission Other Justification YARIEL WEN MD Nov 04, 2021 09:44
[2021-11-04] MEDS ORDERED: ZOLPIDEM 5 MG TABLET. PO PRN (09:45)
[2021-11-04] MEDS ORDERED: ONDANSETRON PF 4 MG/2 ML VIAL. IVP PRN (09:45)
[2021-11-04] MEDS ORDERED: SENNOSIDES 8.6 MG TABLET PO PRN (09:45)
[2021-11-04] MEDS ORDERED: DEXTROSE 50% 25 GM / 50ML DISP.SYRIN. IV PRN (09:45)
[2021-11-04] MEDS ORDERED: diphenhydrAMINE 50 MG/ML VIAL IVP PRN (09:45)
[2021-11-04] MEDS ORDERED: PROCHLORPERAZINE 10 MG/2 ML VIAL. IV PRN (09:45)
[2021-11-04] MEDS ORDERED: ACETAMINOPHEN 325 MG TABLET. PO PRN (09:45)
[2021-11-04] MEDS ORDERED: diphenhydrAMINE HCL 25 MG CAPSULE PO PRN (09:45)
[2021-11-04] MEDS ORDERED: DOCUSATE SODIUM 100 MG CAPSULE. PO PRN (09:45)
[2021-11-04] MEDS: PANTOPRAZOLE 40 MG TABLET.DR. PO SCH ×2 (10:00→10:08)
[2021-11-04] MEDS: ATORVASTATIN CALCIUM 40 MG TABLET. PO SCH (10:05)
[2021-11-04] MEDS: HEPARIN for SUB-Q USE 5,000 UNIT/ML VIAL. SQ SCH ×2 (10:05→20:07)
[2021-11-04] MEDS: CYANOCOBALAMIN (VITAMIN B-12) 1,000 MCG TABLET. PO SCH (10:06)
[2021-11-04] MEDS: LOSARTAN POTASSIUM 50 MG TABLET. PO SCH (10:06)
[2021-11-04] MEDS: CARVEDILOL 6.25 MG TABLET. PO SCH ×2 (10:06→16:18)
[2021-11-04] MEDS: LEVOTHYROXINE 100 MCG TABLET PO SCH (10:06)
[2021-11-04] MEDS: CALCITRIOL 0.25 MCG CAPSULE. PO SCH (10:08)
[2021-11-04] MEDS: DOXAZOSIN MESYLATE 4 MG TABLET. PO SCH (10:08)
--- NOTE | 2021-11-04 13:31 | NUR ---
Scheduled hydralazine held BP 116/46, patient said he would prefer to hold with current blood pressure.
--- NOTE | 2021-11-04 14:34 | PDOC2 ---
CONSULT Date of Consult Date of Consult DATE: 11/04/21 TIME: 14:34 Reason for Consult Reason for Consult: Shortness of breath Referring Physician Referring Physician: Dr. Scruggs Identification/Chief Complaint Chief Complaint Shortness of breath Source Source: Chart review, Patient History of Present Illness Reason for Visit: 61-year-old male presented with shortness of breath and cough productive of green sputum and was noted to be hypoxic in the ED. He was diagnosed with pneumonia and admitted for further management. His BNP and troponin levels were elevated prompting cardiology consultation. Patient denied any chest pain, palpitations or syncope. He denied any previous cardiac history. He has history of chronic renal insufficiency and had AV fistula placed for possible initiation of hemodialysis in the near future. Past Medical History Past Medical History Hypertension Chronic kidney disease Hyperlipidemia Hypothyroidism Past Surgical History Past Surgical History Gastric bypass surgery AV fistula placement Family History Family History Negative for premature coronary artery disease Social History Social History Patient is a former smoker and denied any alcohol or drug use Current Problem List Problem List Problems Medical Problems: (1) Elevated troponin Status: Acute (2) Hypoxia Status: Acute (3) Person under investigation for COVID-19 Status: Acute (4) Pneumonia Status: Acute Current Medications Current Medications Current Medications Sodium Chloride 500 ml @ 500 mls/hr 1X ONCE IV Last administered on 11/03/21at 18:27; Start 11/03/21 at 18:00; Stop 11/03/21 at 18:59; Status DC Azithromycin 500 mg/Sodium Chloride 250 ml @ 250 mls/hr 1X ONCE IV Last administered on 11/03/21at 19:23; Start 11/03/21 at 19:00; Stop 11/03/21 at 19:59; Status DC Ceftriaxone Sodium (Rocephin) 1 gm 1X ONCE IVP Last administered on 11/03/21at 19:20; Start 11/03/21 at 19:00; Stop 11/03/21 at 19:01; Status DC Albuterol/ Ipratropium (Duoneb) 6 ml 1X ONCE NEB Last administered on 11/03/21at 19:24; Start 11/03/21 at 19:00; Stop 11/03/21 at 19:01; Status DC Methylprednisolone Sodium Succinate (SOLU-Medrol 125MG VIAL) 125 mg 1X ONCE IV Last administered on 11/03/21at 19:19; Start 11/03/21 at 19:00; Stop 11/03/21 at 19:01; Status DC Furosemide (Lasix) 60 mg 1X ONCE IVP Last administered on 11/03/21at 20:07; Start 11/03/21 at 20:15; Stop 11/03/21 at 20:16; Status DC Furosemide (Lasix) 100 mg STK-MED ONCE .ROUTE ; Start 11/03/21 at 20:04; Stop 11/03/21 at 20:04; Status DC Sennosides (Senna) 17.2 mg PRN BID PRN PO CONSTIPATION; Start 11/04/21 at 09:45 Docusate Sodium (Colace) 100 mg PRN DAILY PRN PO HARD STOOLS; Start 11/04/21 at 09:45 Ondansetron HCl (Zofran) 4 mg PRN Q6HRS PRN IVP NAUSEA/VOMITING, 1st CHOICE; Start 11/04/21 at 09:45 Dextrose (Dextrose 50%-Water Syringe) 12.5 gm PRN Q15MIN PRN IV SEE COMMENTS; Start 11/04/21 at 09:45 Acetaminophen (Tylenol) 650 mg PRN Q4HRS PRN PO TEMP OVER 100.4F OR MILD PAIN; Start 11/04/21 at 09:45 Lorazepam (Ativan) 0.5 mg PRN Q6HRS PRN PO ANXIETY / AGITATION; Start 11/04/21 at 09:45 Lorazepam (Ativan Inj) 0.25 mg PRN Q4HRS PRN IV ANXIETY / AGITATION; Start 11/04/21 at 09:45 Heparin Sodium (Porcine) (Heparin Sodium) 5,000 unit Q12HR SQ Last administered on 11/04/21at 10:05; Start 11/04/21 at 10:00 Pantoprazole Sodium (Protonix) 40 mg DAILYAC PO Last administered on 11/04/21at 10:08; Start 11/04/21 at 10:00 Azithromycin 500 mg/Sodium Chloride 250 ml @ 250 mls/hr Q24H IV ; Start 11/04/21 at 21:00; Stop 11/07/21 at 21:59 Ceftriaxone Sodium (Rocephin) 1 gm Q24H IVP ; Start 11/04/21 at 21:00 Prochlorperazine Edisylate (Compazine) 10 mg PRN Q6HRS PRN IV NAUSEA/VOMITING, 2nd CHOICE; Start 11/04/21 at 09:45 Diphenhydramine HCl (Benadryl) 25 mg PRN Q6HRS PRN IVP ITCHING; Start 11/04/21 at 09:45 Diphenhydramine HCl (Benadryl) 25 mg PRN Q6HRS PRN PO ITCHING; Start 11/04/21 at 09:45 Diphenhydramine HCl (Benadryl) 25 mg PRN QHS PRN PO INSOMNIA, 1st CHOICE; Start 11/04/21 at 09:45 Zolpidem Tartrate (Ambien) 2.5 mg PRN QHS PRN PO INSOMNIA, 2nd CHOICE; Start 11/04/21 at 09:45 Amlodipine Besylate (Norvasc) 10 mg DAILY PO Last administered on 11/04/21at 10:09; Start 11/04/21 at 10:00 Atorvastatin Calcium (Lipitor) 40 mg DAILY PO Last administered on 11/04/21at 10:05; Start 11/04/21 at 10:00 Carvedilol (Coreg) 6.25 mg BIDWMEALS PO Last administered on 11/04/21at 10:06; Start 11/04/21 at 10:00 Calcitriol (Rocaltrol) 0.5 mcg DAILY PO Last administered on 11/04/21at 10:08; Start 11/04/21 at 10:00 Cyanocobalamin (Vitamin B-12) 500 mcg DAILY PO Last administered on 11/04/21at 10:06; Start 11/04/21 at 10:00 Doxazosin Mesylate (Cardura) 2 mg DAILY PO Last administered on 11/04/21at 10:08; Start 11/04/21 at 10:00 Hydralazine HCl (Apresoline) 100 mg TID PO ; Start 11/04/21 at 10:00 Levothyroxine Sodium (Synthroid) 200 mcg DAILY06 PO Last administered on 11/04/21at 10:06; Start 11/04/21 at 10:00 Losartan Potassium (Cozaar) 100 mg DAILY PO Last administered on 11/04/21at 10:06; Start 11/04/21 at 10:00 Lactobacillus Rhamnosus (Culturelle) 1 cap BID PO ; Start 11/04/21 at 21:00 Active Scripts Active Reported Turmeric (Turmeric Root Extract) 538 Mg Capsule 538 Mg PO DAILY Ferrous Sulfate 325 Mg Tablet 1 Tab PO DAILY Vitamin B-12 (Cyanocobalamin (Vitamin B-12)) 500 Mcg Tablet 1 Tab PO DAILY 30 Days Tramadol Hcl 50 Mg Tablet 50 Mg PO Q6HRS PRN Torsemide 20 Mg Tablet 1 Tab PO DAILY Losartan Potassium 100 Mg Tablet 100 Mg PO DAILY Doxazosin Mesylate 2 Mg Tablet 1 Tab PO DAILY Calcitriol 0.5 Mcg Capsule 1 Cap PO DAILY Carvedilol (Carvedilol) 6.25 Mg Tablet 6.25 Mg PO BIDWMEALS Atorvastatin Calcium 40 Mg Tablet 1 Tab PO DAILY Levothyroxine Sodium 200 Mcg Tablet 1 Tab PO DAILY Hydralazine Hcl 100 Mg Tablet 1 Tab PO TID Amlodipine Besylate 10 Mg Tablet 10 Mg PO DAILY Allergies Allergies: Coded Allergies: No Known Drug Allergies (Unverified , 10/12/21) ROS PSYCHOLOGICAL ROS: No: Hallucinations Eyes: No Loss of vision HEENT: No: Epistaxis Respiratory: YES: Shortness of breath; No: Hemoptysis Cardiovascular: No Chest Pain Gastrointestinal: No Vomiting Genitourinary: No Hematuria Neurological: No Seizures Skin: No Rash Physical Exam General: Alert, Oriented X3, mild distress HEENT: Atraumatic Lungs: Other (Bilateral scattered crepitations) Heart: Regular rate Abdomen: Soft Extremities: Other (1+ pitting edema) Neuro: Normal speech Psych/Mental Status: Mood NL Vitals VITALS Vital Signs Date Time Temp Pulse Resp B/P (MAP) Pulse Ox O2 Delivery O2 Flow Rate FiO2 11/04/21 13:30 75 116/46 (69) 11/04/21 11:00 96.4 18 93 Nasal Cannula 2.0 96.4 Labs Labs Laboratory Tests Test 11/03/21 17:38 11/03/21 17:54 11/03/21 18:05 11/03/21 20:45 Influenza Type A Antigen Negative (NEGATIVE) Influenza Type B Antigen Negative (NEGATIVE) SARS-CoV-2 Antigen (Rapid) Negative (NEGATIVE) O2 Saturation 91 % (92-99) Arterial Blood pH 7.24 (7.35-7.45) Arterial Blood pCO2 at Patient Temp 31 mmHg (35-46) Arterial Blood pO2 at Patient Temp 66 mmHg (65-108) Arterial Blood HCO3 13 mmol/L (21-28) Arterial Blood Base Excess -13 mmol/L (-3-3) FiO2 32% 3l nc White Blood Count 10.1 x10^3/uL (4.0-11.0) Red Blood Count 2.81 x10^6/uL (4.30-5.70) Hemoglobin 7.8 g/dL (13.0-17.5) Hematocrit 23.9 % (39.0-53.0) Mean Corpuscular Volume 85 fL (79-100) Mean Corpuscular Hemoglobin 28 pg (25-35) Mean Corpuscular Hemoglobin Concent 33 g/dL (31-37) Red Cell Distribution Width 15.3 % (11.5-14.5) Platelet Count 412 x10^3/uL (140-400) Neutrophils (%) (Auto) 85 % (31-73) Lymphocytes (%) (Auto) 6 % (24-48) Monocytes (%) (Auto) 8 % (0-9) Eosinophils (%) (Auto) 1 % (0-3) Basophils (%) (Auto) 1 % (0-3) Neutrophils # (Auto) 8.5 x10^3/uL (1.8-7.7) Lymphocytes # (Auto) 0.6 x10^3/uL (1.0-4.8) Monocytes # (Auto) 0.8 x10^3/uL (0.0-1.1) Eosinophils # (Auto) 0.1 x10^3/uL (0.0-0.7) Basophils # (Auto) 0.1 x10^3/uL (0.0-0.2) Sodium Level 142 mmol/L (136-145) Potassium Level 5.3 mmol/L (3.5-5.1) Chloride Level 109 mmol/L (98-107) Carbon Dioxide Level 15 mmol/L (21-32) Anion Gap 18 (6-14) Blood Urea Nitrogen 89 mg/dL (8-26) Creatinine 4.4 mg/dL (0.7-1.3) Estimated GFR (Cockcroft-Gault) 13.8 BUN/Creatinine Ratio 20 (6-20) Glucose Level 105 mg/dL (70-99) Lactic Acid Level 0.8 mmol/L (0.4-2.0) Calcium Level 7.7 mg/dL (8.5-10.1) Total Bilirubin 0.5 mg/dL (0.2-1.0) Aspartate Amino Transf (AST/SGOT) 5 U/L (15-37) Alanine Aminotransferase (ALT/SGPT) 14 U/L (16-63) Alkaline Phosphatase 76 U/L (46-116) Troponin I High Sensitivity 304 ng/L (4-75) 311 ng/L (4-75) KP-Rhk-X-Type Natriuretic Peptide > 49965 pg/mL (0-124) Total Protein 6.3 g/dL (6.4-8.2) Albumin 2.4 g/dL (3.4-5.0) Albumin/Globulin Ratio 0.6 (1.0-1.7) Test 11/04/21 01:15 Troponin I High Sensitivity 432 ng/L (4-75) Laboratory Tests Test 11/03/21 17:38 11/03/21 17:54 11/03/21 18:05 11/03/21 20:45 Influenza Type A Antigen Negative (NEGATIVE) Influenza Type B Antigen Negative (NEGATIVE) SARS-CoV-2 Antigen (Rapid) Negative (NEGATIVE) O2 Saturation 91 % (92-99) Arterial Blood pH 7.24 (7.35-7.45) Arterial Blood pCO2 at Patient Temp 31 mmHg (35-46) Arterial Blood pO2 at Patient Temp 66 mmHg (65-108) Arterial Blood HCO3 13 mmol/L (21-28) Arterial Blood Base Excess -13 mmol/L (-3-3) FiO2 32% 3l nc White Blood Count 10.1 x10^3/uL (4.0-11.0) Red Blood Count 2.81 x10^6/uL (4.30-5.70) Hemoglobin 7.8 g/dL (13.0-17.5) Hematocrit 23.9 % (39.0-53.0) Mean Corpuscular Volume 85 fL (79-100) Mean Corpuscular Hemoglobin 28 pg (25-35) Mean Corpuscular Hemoglobin Concent 33 g/dL (31-37) Red Cell Distribution Width 15.3 % (11.5-14.5) Platelet Count 412 x10^3/uL (140-400) Neutrophils (%) (Auto) 85 % (31-73) Lymphocytes (%) (Auto) 6 % (24-48) Monocytes (%) (Auto) 8 % (0-9) Eosinophils (%) (Auto) 1 % (0-3) Basophils (%) (Auto) 1 % (0-3) Neutrophils # (Auto) 8.5 x10^3/uL (1.8-7.7) Lymphocytes # (Auto) 0.6 x10^3/uL (1.0-4.8) Monocytes # (Auto) 0.8 x10^3/uL (0.0-1.1) Eosinophils # (Auto) 0.1 x10^3/uL (0.0-0.7) Basophils # (Auto) 0.1 x10^3/uL (0.0-0.2) Sodium Level 142 mmol/L (136-145) Potassium Level 5.3 mmol/L (3.5-5.1) Chloride Level 109 mmol/L (98-107) Carbon Dioxide Level 15 mmol/L (21-32) Anion Gap 18 (6-14) Blood Urea Nitrogen 89 mg/dL (8-26) Creatinine 4.4 mg/dL (0.7-1.3) Estimated GFR (Cockcroft-Gault) 13.8 BUN/Creatinine Ratio 20 (6-20) Glucose Level 105 mg/dL (70-99) Lactic Acid Level 0.8 mmol/L (0.4-2.0) Calcium Level 7.7 mg/dL (8.5-10.1) Total Bilirubin 0.5 mg/dL (0.2-1.0) Aspartate Amino Transf (AST/SGOT) 5 U/L (15-37) Alanine Aminotransferase (ALT/SGPT) 14 U/L (16-63) Alkaline Phosphatase 76 U/L (46-116) Troponin I High Sensitivity 304 ng/L (4-75) 311 ng/L (4-75) SR-Iks-A-Type Natriuretic Peptide > 78296 pg/mL (0-124) Total Protein 6.3 g/dL (6.4-8.2) Albumin 2.4 g/dL (3.4-5.0) Albumin/Globulin Ratio 0.6 (1.0-1.7) Test 11/04/21 01:15 Troponin I High Sensitivity 432 ng/L (4-75) Assessment/Plan Assessment/Plan 1. Acute hypoxic respiratory failure secondary to combination of bilateral pneumonia and acute on chronic diastolic heart failure. Continue intravenous antibiotics. 2. Acute on chronic diastolic heart failure: We will defer diuretics to nephrology team secondary to his significant renal insufficiency. Check 2D echo to assess LV systolic function. 3. Non-STEMI most probably type II/demand ischemia. Patient denied any chest pain and EKG without acute changes. We will consider ischemic evaluation as an outpatient. 4. Near end-stage renal disease: Patient has AV fistula placed but has not started hemodialysis yet. Nephrology consulted 5. Hypertension: Controlled 6. Hypothyroidism: Continue levothyroxine 7. Hyperlipidemia: Continue statin therapy Thank you for your consultation DAVID COFFMAN MD Nov 04, 2021 14:34
[2021-11-04] MEDS ORDERED: EPOETIN ALFA-EPBX for NON-DIALYSIS 20,000 UNIT/ML VIAL. SQ ONE (16:00)
[2021-11-04] MEDS: SODIUM BICARBONATE 650 MG TABLET. PO SCH ×2 (16:18→20:08)
[2021-11-04] MEDS: FUROSEMIDE 80 MG TABLET. PO SCH (16:19)
[2021-11-04] MEDS: LACTOBACILLUS RHAMNOSUS GG 1 CAPSULE. PO SCH (20:07)
[2021-11-04] MEDS: cefTRIAXone IV Push 1 GM VIAL. IVP SCH (20:08)
[2021-11-04] MEDS: AZITHROMYCIN 500 MG in IV NORMAL SALINE 250ML 250 ML IV SCH (20:09)
--- NOTE | 2021-11-04 20:31 | CONS ---
DATE OF CONSULTATION: 11/04/2021 REQUESTING PHYSICIAN: Hospitalist. REASON FOR CONSULTATION: Renal failure. HISTORY OF PRESENT ILLNESS: A 61-year-old gentleman with history of known chronic kidney disease, currently stage V. He is followed by Dr. Che of our practice and is being prepared for initiation of dialysis. He has AV fistula placed, which is not as of yet mature. He now presents with increased shortness of breath. He is currently PUI for COVID-19. In this setting, Nephrology evaluation requested. PAST MEDICAL HISTORY: Gastric bypass, chronic kidney disease stage V, AV fistula placement, anemia of chronic kidney disease, secondary hyperparathyroidism of renal disease, Charcot foot, hypothyroidism, thyroid nodule. ALLERGIES: None. MEDICATIONS: Reviewed per medication list. FAMILY HISTORY: Noncontributory. SOCIAL HISTORY: The patient resides independently. Former smoker. REVIEW OF SYSTEMS: Other than increased shortness of breath and fatigue, remainder of review of systems is unremarkable. PHYSICAL EXAMINATION: The patient is PUI for COVID-19, as such bedside examination is not pursued. LABORATORY DATA: White count 10, hemoglobin 7.8, hematocrit 23.9, platelets are 412. Sodium 142, potassium 5.3, chloride 109, CO2 of 15, BUN 89, creatinine 4.4. IMPRESSION: Chronic kidney disease stage V, nearing need for initiation of dialysis. He has AV fistula placed and is maturing. Current symptoms in part secondary to metabolic acidosis and hypoxemia. RECOMMENDATIONS: 1. IV Lasix. 2. Sodium bicarbonate. 3. Trend labs and initiate dialysis if needed. Currently, no urgent demand for dialysis. 4. Epogen will be given for anemia of chronic kidney disease. We will follow. CHRISTINA COLLAZO: Landry TID: [id number]
[2021-11-05] VITALS (12 sets, daily range): BP systolic 125–179; BP diastolic 47–76
[2021-11-05 04:43] LABS: BASO % 0 % (0-3); EOS % 0 % (0-3); HEMATOCRIT 21.1 % (39.0-53.0); LYMPH # 0.3 x10^3/uL (1.0-4.8); LYMPH % 2 % (24-48); MEAN CORPUSCULAR HEMOGLOBIN 26 pg (25-35); MEAN CORPUSCULAR HGB CONC 31 g/dL (31-37); MEAN CORPUSCULAR VOLUME 84 fL (79-100); MONO # 0.6 x10^3/uL (0.0-1.1); MONO % 4 % (0-9); NEUT # 12.2 x10^3/uL (1.8-7.7); NEUT % 94 % (31-73); PLATELET COUNT 375 x10^3/uL (140-400); RED BLOOD COUNT 2.52 x10^6/uL (4.30-5.70)
[2021-11-05 04:54] LABS: HEMOGLOBIN 6.6 g/dL (13.0-17.5)
[2021-11-05 05:08] LABS: ALBUMIN 2.1 g/dL (3.4-5.0); ALBUMIN/GLOBULIN RATIO 0.6 (1.0-1.7); CALCIUM 7.8 mg/dL (8.5-10.1); CREATININE 4.7 mg/dL (0.7-1.3); GFR 12.8; POTASSIUM 5.2 mmol/L (3.5-5.1); TOTAL BILIRUBIN 0.2 mg/dL (0.2-1.0); TOTAL PROTEIN 5.8 g/dL (6.4-8.2)
[2021-11-05 05:15] LABS: % BANDS 1 % (0-9); % SEGS 99 % (35-66); ANISOCYTOSIS SLIGHT; PLT ESTIMATE ADEQUATE (ADEQUATE); TOXIC GRANULATION SLIGHT
[2021-11-05 05:16] LABS: OVALOCYTES OCC; SCHISTOCYTES OCC
[2021-11-05] MEDS: LEVOTHYROXINE 100 MCG TABLET PO SCH (06:31)
[2021-11-05 07:26] LABS: CREATININE 4.6 mg/dL (0.7-1.3); GFR 13.1; MAGNESIUM 2.7 mg/dL (1.8-2.4); POTASSIUM 5.2 mmol/L (3.5-5.1)
[2021-11-05] MEDS ORDERED: SODIUM BICARB ADULT 8.4% 50 MEQ/50 ML DISP.SYRIN. ONE (07:44)
[2021-11-05] MEDS ORDERED: SODIUM BICARB ADULT 8.4% 50 MEQ/50 ML DISP.SYRIN. IV ONE ×2 (07:45)
[2021-11-05] MEDS: LACTOBACILLUS RHAMNOSUS GG 1 CAPSULE. PO SCH ×2 (07:52→19:24)
[2021-11-05] MEDS: PANTOPRAZOLE 40 MG TABLET.DR. PO SCH (07:53)
[2021-11-05] MEDS: CALCITRIOL 0.25 MCG CAPSULE. PO SCH (07:53)
[2021-11-05] MEDS: FUROSEMIDE 80 MG TABLET. PO SCH (07:53)
[2021-11-05] MEDS: SODIUM BICARBONATE 650 MG TABLET. PO SCH ×3 (07:53→19:24)
[2021-11-05] MEDS: CYANOCOBALAMIN (VITAMIN B-12) 1,000 MCG TABLET. PO SCH (07:54)
[2021-11-05] MEDS: ATORVASTATIN CALCIUM 40 MG TABLET. PO SCH (07:54)
[2021-11-05] MEDS: CARVEDILOL 6.25 MG TABLET. PO SCH ×2 (07:54→16:59)
[2021-11-05] MEDS: HEPARIN for SUB-Q USE 5,000 UNIT/ML VIAL. SQ SCH ×2 (07:59→19:26)
[2021-11-05] MEDS: DOXAZOSIN MESYLATE 4 MG TABLET. PO SCH (08:01)
[2021-11-05] MEDS: LOSARTAN POTASSIUM 50 MG TABLET. PO SCH (08:02)
[2021-11-05] MEDS ORDERED: ACETAMINOPHEN 325 MG TABLET. PO PRN (10:00)
[2021-11-05] MEDS ORDERED: diphenhydrAMINE 50 MG/ML VIAL IVP ONE (10:00)
--- NOTE | 2021-11-05 12:31 | PDOC ---
[employer] PROGRESS NOTE Date of Service DOS: DATE: 11/05/21 TIME: 12:28 Chief Complaint Chief Complaint Assessment/Plan Acute hypoxic respiratory failure requiring BiPAP support Bilateral pneumonia, possible gram-negative organisms Acute electrolyte derangement consistent with CKD Anemia of CKD requiring 1 unit PRBC transfusion Metabolic acidosis History of DARRELL compliant with CPAP History of gastric bypass History of diabetes mellitus type 2, diet controlled History of CKD stage IV not on hemodialysis but has AV fistula in left upper extremity Admit to hospitalist service for further management Cardiology consulted for elevated troponins Nephrology consult Continue empiric IV antibiotics IV diuresis as needed Strict I's/O Avoid nephrotoxic agents Continue with home CPAP for DARRELL Heparin for DVT prophylaxis Protonix GI prophylaxis ADA diet CODE STATUS full Discussed with RN and SW Disposition inpatient management as above DPOA: A total of 45 minutes of critical care time was spent in reviewing chart, labs, and images. Discussed with RN and SW History of Present Illness History of Present Illness 61 year old male who presents with chronic pruritus for the last week and recently returned. He states the whole time he was stayed in the cabin room most of the. He states he just has not been feeling well and has been short of breath and coughing up green mucus. He states that he has been tested for Covid 3 times in the last 3 weeks level came back negative. Upon arrival patient was 80% on room air. He does not normally wear oxygen. He is placed on 3 L and is at 92%. He has a left arm fistula. He has not had dialysis yet. He does see Dr. Che for CKD. He has a history of CKD, COVID-19, gastric bypass, renal insufficiency, former smoker, sleep apnea for which she wears a CPAP at night. 11/05/2021 No acute events overnight. Patient seen examined bedside. Hemoglobin is 6.6 today. 1 unit PRBC transfusion pending. Not more short of breath than usual. Not requiring BiPAP at this time. Saturating 92% on 2 L nasal cannula. Patient's chart, labs, images were reviewed and discussed with RN Vitals/I&O Vitals/I&O: Vital Signs Date Time Temp Pulse Resp B/P (MAP) Pulse Ox O2 Delivery O2 Flow Rate FiO2 11/05/21 11:36 96.8 96.8 11/05/21 11:34 71 18 152/54 11/05/21 10:52 92 Nasal Cannula 2.0 I & O 11/04/21 11/04/21 11/05/21 15:00 23:00 07:00 Intake Total 240 ml 590 ml 0 ml Balance 240 ml 590 ml 0 ml Physical Exam General: Alert, Oriented X3, mild distress Heart: Regular rate Abdomen: Soft Extremities: No clubbing, Other (1+ pitting edema) Skin: No rashes Labs Labs: Laboratory Tests Test 11/05/21 04:00 White Blood Count 13.0 x10^3/uL (4.0-11.0) Red Blood Count 2.52 x10^6/uL (4.30-5.70) Hemoglobin 6.6 g/dL (13.0-17.5) Hematocrit 21.1 % (39.0-53.0) Mean Corpuscular Volume 84 fL (79-100) Mean Corpuscular Hemoglobin 26 pg (25-35) Mean Corpuscular Hemoglobin Concent 31 g/dL (31-37) Red Cell Distribution Width 15.0 % (11.5-14.5) Platelet Count 375 x10^3/uL (140-400) Neutrophils (%) (Auto) 94 % (31-73) Lymphocytes (%) (Auto) 2 % (24-48) Monocytes (%) (Auto) 4 % (0-9) Eosinophils (%) (Auto) 0 % (0-3) Basophils (%) (Auto) 0 % (0-3) Neutrophils # (Auto) 12.2 x10^3/uL (1.8-7.7) Lymphocytes # (Auto) 0.3 x10^3/uL (1.0-4.8) Monocytes # (Auto) 0.6 x10^3/uL (0.0-1.1) Eosinophils # (Auto) 0.0 x10^3/uL (0.0-0.7) Basophils # (Auto) 0.0 x10^3/uL (0.0-0.2) Segmented Neutrophils % 99 % (35-66) Band Neutrophils % 1 % (0-9) Toxic Granulation Slight Platelet Estimate Adequate (ADEQUATE) Anisocytosis Slight Ovalocytes Occ Schistocytes Occ Sodium Level 140 mmol/L (136-145) Potassium Level 5.2 mmol/L (3.5-5.1) Chloride Level 110 mmol/L (98-107) Carbon Dioxide Level 13 mmol/L (21-32) Anion Gap 17 (6-14) Blood Urea Nitrogen 106 mg/dL (8-26) Creatinine 4.7 mg/dL (0.7-1.3) Estimated GFR (Cockcroft-Gault) 12.8 BUN/Creatinine Ratio 23 (6-20) Glucose Level 178 mg/dL (70-99) Calcium Level 7.8 mg/dL (8.5-10.1) Phosphorus Level 8.0 mg/dL (2.6-4.7) Magnesium Level 2.7 mg/dL (1.8-2.4) Total Bilirubin 0.2 mg/dL (0.2-1.0) Aspartate Amino Transf (AST/SGOT) 15 U/L (15-37) Alanine Aminotransferase (ALT/SGPT) 11 U/L (16-63) Alkaline Phosphatase 73 U/L (46-116) Total Protein 5.8 g/dL (6.4-8.2) Albumin 2.1 g/dL (3.4-5.0) Albumin/Globulin Ratio 0.6 (1.0-1.7) Assessment and Plan Assessmemt and Plan Problems Medical Problems: (1) Elevated troponin Status: Acute (2) Hypoxia Status: Acute (3) Person under investigation for COVID-19 Status: Acute (4) Pneumonia Status: Acute Comment Review of Relevant I have reviewed the following items swathi (where applicable) has been applied. Medications: Current Medications Medications (Trade) Dose Ordered Sig/Catherine Route PRN Reason Start Time Stop Time Status Last Admin Dose Admin Azithromycin 500 mg/Sodium Chloride 250 ml @ 250 mls/hr Q24H IV 11/04/21 21:00 11/07/21 21:59 11/04/21 20:09 Ceftriaxone Sodium (Rocephin) 1 gm Q24H IVP 11/04/21 21:00 11/04/21 20:08 Lactobacillus Rhamnosus (Culturelle) 1 cap BID PO 11/04/21 21:00 11/05/21 07:52 Sodium Bicarbonate (Sodium Bicarbonate) 1,300 mg TID PO 11/04/21 15:00 11/05/21 07:53 Epoetin Aris-epbx (RETACRIT for NON-DIALYSIS PTS) 10,000 unit 1X ONCE SQ 11/04/21 16:00 11/04/21 16:01 DC 11/04/21 16:21 Furosemide (Lasix) 80 mg DAILY PO 11/04/21 15:00 11/05/21 07:53 Sodium Bicarbonate (Sodium Bicarb Adult 8.4% Syr) 50 meq 1X ONCE IV 11/05/21 07:45 11/05/21 07:46 DC 11/05/21 08:00 Sodium Bicarbonate (Sodium Bicarb Adult 8.4% Syr) 50 meq 1X ONCE IV 11/05/21 07:45 11/05/21 07:46 DC 11/05/21 08:00 Justifications for Admission Other Justification Hypoxic respiratory failure YARIEL WEN MD Nov 05, 2021 12:31
--- NOTE | 2021-11-05 12:33 | PDOC ---
PROGRESS NOTES Date of Service DATE: 11/05/21 TIME: 12:30 Subjective Subjective SEEN IN FOLLOW UP OF CKD5 Objective Objective Vital Signs Date Time Temp Pulse Resp B/P (MAP) Pulse Ox O2 Delivery O2 Flow Rate FiO2 11/05/21 11:36 96.8 96.8 11/05/21 11:34 71 18 152/54 11/05/21 10:52 92 Nasal Cannula 2.0 Intake and Output 11/05/21 07:00 Intake Total 830 ml Balance 830 ml Intake Oral 830 ml # Voids 5 # Bowel Movements 3 Physical Exam Abdomen: Normal bowel sounds, Soft, No tenderness, No hepatosplenomegaly, No masses Heart: Regular rate, Normal S1, Normal S2, No murmurs, Gallops General: Alert, Oriented X3, Cooperative Lungs: Other (DECREASED IN BASES BILAT) Psych/Mental Status: Mental status NL, Mood NL Assessment Assessment Problems Medical Problems: (1) Elevated troponin Status: Acute (2) Hypoxia Status: Acute (3) Person under investigation for COVID-19 Status: Acute (4) Pneumonia Status: Acute Plan Plan of Care HE IS ESRD STATUS. FOR PERMCATH AND TO START DIALYSIS TOMORROW. HE IS AGREEABLE. HE IS BEING RX FOR PNEUMONIA. WILL ALSO GIVE LASIX. CONT PO BICARB Comment Review of Relevant I have reviewed the following items swathi (where applicable) has been applied. Labs Laboratory Tests Test 11/03/21 17:38 11/03/21 17:54 11/03/21 18:05 11/03/21 20:45 Coronavirus (COVID-19)(PCR) Not detected (NOT DETECTD) Influenza Type A Antigen Negative (NEGATIVE) Influenza Type B Antigen Negative (NEGATIVE) SARS-CoV-2 Antigen (Rapid) Negative (NEGATIVE) O2 Saturation 91 % (92-99) Arterial Blood pH 7.24 (7.35-7.45) Arterial Blood pCO2 at Patient Temp 31 mmHg (35-46) Arterial Blood pO2 at Patient Temp 66 mmHg (65-108) Arterial Blood HCO3 13 mmol/L (21-28) Arterial Blood Base Excess -13 mmol/L (-3-3) FiO2 32% 3l nc White Blood Count 10.1 x10^3/uL (4.0-11.0) Red Blood Count 2.81 x10^6/uL (4.30-5.70) Hemoglobin 7.8 g/dL (13.0-17.5) Hematocrit 23.9 % (39.0-53.0) Mean Corpuscular Volume 85 fL (79-100) Mean Corpuscular Hemoglobin 28 pg (25-35) Mean Corpuscular Hemoglobin Concent 33 g/dL (31-37) Red Cell Distribution Width 15.3 % (11.5-14.5) Platelet Count 412 x10^3/uL (140-400) Neutrophils (%) (Auto) 85 % (31-73) Lymphocytes (%) (Auto) 6 % (24-48) Monocytes (%) (Auto) 8 % (0-9) Eosinophils (%) (Auto) 1 % (0-3) Basophils (%) (Auto) 1 % (0-3) Neutrophils # (Auto) 8.5 x10^3/uL (1.8-7.7) Lymphocytes # (Auto) 0.6 x10^3/uL (1.0-4.8) Monocytes # (Auto) 0.8 x10^3/uL (0.0-1.1) Eosinophils # (Auto) 0.1 x10^3/uL (0.0-0.7) Basophils # (Auto) 0.1 x10^3/uL (0.0-0.2) Sodium Level 142 mmol/L (136-145) Potassium Level 5.3 mmol/L (3.5-5.1) Chloride Level 109 mmol/L (98-107) Carbon Dioxide Level 15 mmol/L (21-32) Anion Gap 18 (6-14) Blood Urea Nitrogen 89 mg/dL (8-26) Creatinine 4.4 mg/dL (0.7-1.3) Estimated GFR (Cockcroft-Gault) 13.8 BUN/Creatinine Ratio 20 (6-20) Glucose Level 105 mg/dL (70-99) Lactic Acid Level 0.8 mmol/L (0.4-2.0) Calcium Level 7.7 mg/dL (8.5-10.1) Total Bilirubin 0.5 mg/dL (0.2-1.0) Aspartate Amino Transf (AST/SGOT) 5 U/L (15-37) Alanine Aminotransferase (ALT/SGPT) 14 U/L (16-63) Alkaline Phosphatase 76 U/L (46-116) Troponin I High Sensitivity 304 ng/L (4-75) 311 ng/L (4-75) KY-Bhk-Z-Type Natriuretic Peptide > 49149 pg/mL (0-124) Total Protein 6.3 g/dL (6.4-8.2) Albumin 2.4 g/dL (3.4-5.0) Albumin/Globulin Ratio 0.6 (1.0-1.7) Test 11/04/21 01:15 11/05/21 04:00 Troponin I High Sensitivity 432 ng/L (4-75) White Blood Count 13.0 x10^3/uL (4.0-11.0) Red Blood Count 2.52 x10^6/uL (4.30-5.70) Hemoglobin 6.6 g/dL (13.0-17.5) Hematocrit 21.1 % (39.0-53.0) Mean Corpuscular Volume 84 fL (79-100) Mean Corpuscular Hemoglobin 26 pg (25-35) Mean Corpuscular Hemoglobin Concent 31 g/dL (31-37) Red Cell Distribution Width 15.0 % (11.5-14.5) Platelet Count 375 x10^3/uL (140-400) Neutrophils (%) (Auto) 94 % (31-73) Lymphocytes (%) (Auto) 2 % (24-48) Monocytes (%) (Auto) 4 % (0-9) Eosinophils (%) (Auto) 0 % (0-3) Basophils (%) (Auto) 0 % (0-3) Neutrophils # (Auto) 12.2 x10^3/uL (1.8-7.7) Lymphocytes # (Auto) 0.3 x10^3/uL (1.0-4.8) Monocytes # (Auto) 0.6 x10^3/uL (0.0-1.1) Eosinophils # (Auto) 0.0 x10^3/uL (0.0-0.7) Basophils # (Auto) 0.0 x10^3/uL (0.0-0.2) Segmented Neutrophils % 99 % (35-66) Band Neutrophils % 1 % (0-9) Toxic Granulation Slight Platelet Estimate Adequate (ADEQUATE) Anisocytosis Slight Ovalocytes Occ Schistocytes Occ Sodium Level 140 mmol/L (136-145) Potassium Level 5.2 mmol/L (3.5-5.1) Chloride Level 110 mmol/L (98-107) Carbon Dioxide Level 13 mmol/L (21-32) Anion Gap 17 (6-14) Blood Urea Nitrogen 106 mg/dL (8-26) Creatinine 4.7 mg/dL (0.7-1.3) Estimated GFR (Cockcroft-Gault) 12.8 BUN/Creatinine Ratio 23 (6-20) Glucose Level 178 mg/dL (70-99) Calcium Level 7.8 mg/dL (8.5-10.1) Phosphorus Level 8.0 mg/dL (2.6-4.7) Magnesium Level 2.7 mg/dL (1.8-2.4) Total Bilirubin 0.2 mg/dL (0.2-1.0) Aspartate Amino Transf (AST/SGOT) 15 U/L (15-37) Alanine Aminotransferase (ALT/SGPT) 11 U/L (16-63) Alkaline Phosphatase 73 U/L (46-116) Total Protein 5.8 g/dL (6.4-8.2) Albumin 2.1 g/dL (3.4-5.0) Albumin/Globulin Ratio 0.6 (1.0-1.7) Laboratory Tests Test 11/05/21 04:00 White Blood Count 13.0 x10^3/uL (4.0-11.0) Red Blood Count 2.52 x10^6/uL (4.30-5.70) Hemoglobin 6.6 g/dL (13.0-17.5) Hematocrit 21.1 % (39.0-53.0) Mean Corpuscular Volume 84 fL (79-100) Mean Corpuscular Hemoglobin 26 pg (25-35) Mean Corpuscular Hemoglobin Concent 31 g/dL (31-37) Red Cell Distribution Width 15.0 % (11.5-14.5) Platelet Count 375 x10^3/uL (140-400) Neutrophils (%) (Auto) 94 % (31-73) Lymphocytes (%) (Auto) 2 % (24-48) Monocytes (%) (Auto) 4 % (0-9) Eosinophils (%) (Auto) 0 % (0-3) Basophils (%) (Auto) 0 % (0-3) Neutrophils # (Auto) 12.2 x10^3/uL (1.8-7.7) Lymphocytes # (Auto) 0.3 x10^3/uL (1.0-4.8) Monocytes # (Auto) 0.6 x10^3/uL (0.0-1.1) Eosinophils # (Auto) 0.0 x10^3/uL (0.0-0.7) Basophils # (Auto) 0.0 x10^3/uL (0.0-0.2) Segmented Neutrophils % 99 % (35-66) Band Neutrophils % 1 % (0-9) Toxic Granulation Slight Platelet Estimate Adequate (ADEQUATE) Anisocytosis Slight Ovalocytes Occ Schistocytes Occ Sodium Level 140 mmol/L (136-145) Potassium Level 5.2 mmol/L (3.5-5.1) Chloride Level 110 mmol/L (98-107) Carbon Dioxide Level 13 mmol/L (21-32) Anion Gap 17 (6-14) Blood Urea Nitrogen 106 mg/dL (8-26) Creatinine 4.7 mg/dL (0.7-1.3) Estimated GFR (Cockcroft-Gault) 12.8 BUN/Creatinine Ratio 23 (6-20) Glucose Level 178 mg/dL (70-99) Calcium Level 7.8 mg/dL (8.5-10.1) Phosphorus Level 8.0 mg/dL (2.6-4.7) Magnesium Level 2.7 mg/dL (1.8-2.4) Total Bilirubin 0.2 mg/dL (0.2-1.0) Aspartate Amino Transf (AST/SGOT) 15 U/L (15-37) Alanine Aminotransferase (ALT/SGPT) 11 U/L (16-63) Alkaline Phosphatase 73 U/L (46-116) Total Protein 5.8 g/dL (6.4-8.2) Albumin 2.1 g/dL (3.4-5.0) Albumin/Globulin Ratio 0.6 (1.0-1.7) Microbiology 11/03/21 Respiratory Culture Gram Stain - Final, Complete 11/03/21 Blood Culture - Final, Complete Medications Current Medications Sodium Chloride 500 ml @ 500 mls/hr 1X ONCE IV Last administered on 11/03/21at 18:27; Start 11/03/21 at 18:00; Stop 11/03/21 at 18:59; Status DC Azithromycin 500 mg/Sodium Chloride 250 ml @ 250 mls/hr 1X ONCE IV Last administered on 11/03/21at 19:23; Start 11/03/21 at 19:00; Stop 11/03/21 at 19:59; Status DC Ceftriaxone Sodium (Rocephin) 1 gm 1X ONCE IVP Last administered on 11/03/21at 19:20; Start 11/03/21 at 19:00; Stop 11/03/21 at 19:01; Status DC Albuterol/ Ipratropium (Duoneb) 6 ml 1X ONCE NEB Last administered on 11/03/21at 19:24; Start 11/03/21 at 19:00; Stop 11/03/21 at 19:01; Status DC Methylprednisolone Sodium Succinate (SOLU-Medrol 125MG VIAL) 125 mg 1X ONCE IV Last administered on 11/03/21at 19:19; Start 11/03/21 at 19:00; Stop 11/03/21 at 19:01; Status DC Furosemide (Lasix) 60 mg 1X ONCE IVP Last administered on 11/03/21at 20:07; Start 11/03/21 at 20:15; Stop 11/03/21 at 20:16; Status DC Furosemide (Lasix) 100 mg STK-MED ONCE .ROUTE ; Start 11/03/21 at 20:04; Stop 11/03/21 at 20:04; Status DC Sennosides (Senna) 17.2 mg PRN BID PRN PO CONSTIPATION; Start 11/04/21 at 09:45 Docusate Sodium (Colace) 100 mg PRN DAILY PRN PO HARD STOOLS; Start 11/04/21 at 09:45 Ondansetron HCl (Zofran) 4 mg PRN Q6HRS PRN IVP NAUSEA/VOMITING, 1st CHOICE; Start 11/04/21 at 09:45 Dextrose (Dextrose 50%-Water Syringe) 12.5 gm PRN Q15MIN PRN IV SEE COMMENTS; Start 11/04/21 at 09:45 Acetaminophen (Tylenol) 650 mg PRN Q4HRS PRN PO TEMP OVER 100.4F OR MILD PAIN; Start 11/04/21 at 09:45; Stop 11/05/21 at 09:58; Status DC Lorazepam (Ativan) 0.5 mg PRN Q6HRS PRN PO ANXIETY / AGITATION; Start 11/04/21 at 09:45 Lorazepam (Ativan Inj) 0.25 mg PRN Q4HRS PRN IV ANXIETY / AGITATION; Start 11/04/21 at 09:45 Heparin Sodium (Porcine) (Heparin Sodium) 5,000 unit Q12HR SQ Last administered on 11/05/21at 07:59; Start 11/04/21 at 10:00 Pantoprazole Sodium (Protonix) 40 mg DAILYAC PO Last administered on 11/05/21at 07:53; Start 11/04/21 at 10:00 Azithromycin 500 mg/Sodium Chloride 250 ml @ 250 mls/hr Q24H IV Last adminis tered on 11/04/21at 20:09; Start 11/04/21 at 21:00; Stop 11/07/21 at 21:59 Ceftriaxone Sodium (Rocephin) 1 gm Q24H IVP Last administered on 11/04/21at 20:08; Start 11/04/21 at 21:00 Prochlorperazine Edisylate (Compazine) 10 mg PRN Q6HRS PRN IV NAUSEA/VOMITING, 2nd CHOICE; Start 11/04/21 at 09:45 Diphenhydramine HCl (Benadryl) 25 mg PRN Q6HRS PRN IVP ITCHING; Start 11/04/21 at 09:45 Diphenhydramine HCl (Benadryl) 25 mg PRN Q6HRS PRN PO ITCHING; Start 11/04/21 at 09:45 Diphenhydramine HCl (Benadryl) 25 mg PRN QHS PRN PO INSOMNIA, 1st CHOICE; Start 11/04/21 at 09:45 Zolpidem Tartrate (Ambien) 2.5 mg PRN QHS PRN PO INSOMNIA, 2nd CHOICE; Start 11/04/21 at 09:45 Amlodipine Besylate (Norvasc) 10 mg DAILY PO Last administered on 11/04/21at 10:09; Start 11/04/21 at 10:00 Atorvastatin Calcium (Lipitor) 40 mg DAILY PO Last administered on 11/05/21at 07:54; Start 11/04/21 at 10:00 Carvedilol (Coreg) 6.25 mg BIDWMEALS PO Last administered on 11/05/21at 07:54; Start 11/04/21 at 10:00 Calcitriol (Rocaltrol) 0.5 mcg DAILY PO Last administered on 11/05/21at 07:53; Start 11/04/21 at 10:00 Cyanocobalamin (Vitamin B-12) 500 mcg DAILY PO Last administered on 11/05/21at 07:54; Start 11/04/21 at 10:00 Doxazosin Mesylate (Cardura) 2 mg DAILY PO Last administered on 11/04/21at 10: 08; Start 11/04/21 at 10:00 Hydralazine HCl (Apresoline) 100 mg TID PO Last administered on 11/04/21at 20:07; Start 11/04/21 at 10:00 Levothyroxine Sodium (Synthroid) 200 mcg DAILY06 PO Last administered on 11/05/21at 06:31; Start 11/04/21 at 10:00 Losartan Potassium (Cozaar) 100 mg DAILY PO Last administered on 11/04/21at 10:06; Start 11/04/21 at 10:00 Lactobacillus Rhamnosus (Culturelle) 1 cap BID PO Last administered on 11/05/21 07:52; Start 11/04/21 at 21:00 Sodium Bicarbonate (Sodium Bicarbonate) 1,300 mg TID PO Last administered on 11/05/21 07:53; Start 11/04/21 at 15:00 Epoetin Aris-epbx (RETACRIT for NON-DIALYSIS PTS) 10,000 unit 1X ONCE SQ Last administered on 11/04/21at 16:21; Start 11/04/21 at 16:00; Stop 11/04/21 at 16:01; Status DC Furosemide (Lasix) 80 mg DAILY PO Last administered on 11/05/21at 07:53; Start 11/04/21 at 15:00 Sodium Bicarbonate (Sodium Bicarb Adult 8.4% Syr) 50 meq 1X ONCE IV Last administered on 11/05/21at 08:00; Start 11/05/21 at 07:45; Stop 11/05/21 at 07:46; Status DC Sodium Bicarbonate (Sodium Bicarb Adult 8.4% Syr) 50 meq 1X ONCE IV Last administered on 11/05/21at 08:00; Start 11/05/21 at 07:45; Stop 11/05/21 at 07:46; Status DC Sodium Bicarbonate (Sodium Bicarb Adult 8.4% Syr) 50 meq STK-MED ONCE .ROUTE ; Start 11/05/21 at 07:44; Stop 11/05/21 at 07:45; Status DC Diphenhydramine HCl (Benadryl) 25 mg 1X ONCE IVP ; Start 11/05/21 at 10:00; Stop 11/05/21 at 10:03; Status DC Acetaminophen (Tylenol) 650 mg PRN Q6HRS PRN PO MILD PAIN / TEMP > 100.3'F; Start 11/05/21 at 10:00 Furosemide (Lasix) 80 mg 1X ONCE IVP ; Start 11/05/21 at 21:00; Stop 11/05/21 at 21:01 Furosemide (Lasix) 80 mg 1X ONCE IVP ; Start 11/05/21 at 18:00; Stop 11/05/21 at 18:01 Active Scripts Active Reported Turmeric (Turmeric Root Extract) 538 Mg Capsule 538 Mg PO DAILY Ferrous Sulfate 325 Mg Tablet 1 Tab PO DAILY Vitamin B-12 (Cyanocobalamin (Vitamin B-12)) 500 Mcg Tablet 1 Tab PO DAILY 30 Days Tramadol Hcl 50 Mg Tablet 50 Mg PO Q6HRS PRN Torsemide 20 Mg Tablet 1 Tab PO DAILY Losartan Potassium 100 Mg Tablet 100 Mg PO DAILY Doxazosin Mesylate 2 Mg Tablet 1 Tab PO DAILY Calcitriol 0.5 Mcg Capsule 1 Cap PO DAILY Carvedilol (Carvedilol) 6.25 Mg Tablet 6.25 Mg PO BIDWMEALS Atorvastatin Calcium 40 Mg Tablet 1 Tab PO DAILY Levothyroxine Sodium 200 Mcg Tablet 1 Tab PO DAILY Hydralazine Hcl 100 Mg Tablet 1 Tab PO TID Amlodipine Besylate 10 Mg Tablet 10 Mg PO DAILY Vitals/I & O Vital Sign - Last 24 Hours 11/04/21 11/04/21 11/04/21 11/04/21 13:30 15:00 16:18 19:59 Temp 97.6 97.8 97.6 97.8 Pulse 75 72 80 71 Resp 20 18 B/P (MAP) 116/46 (69) 137/57 (83) 127/53 (77) Pulse Ox 92 98 O2 Delivery Nasal Cannula Nasal Cannula O2 Flow Rate 2.0 2.0 11/04/21 11/04/21 11/04/21 11/05/21 20:00 20:07 22:50 01:00 Temp 98.1 98.1 Pulse 71 71 Resp 20 B/P (MAP) 127/53 101/46 (64) Pulse Ox 98 O2 Delivery Room Air Nasal Cannula BiPAP/CPAP O2 Flow Rate 2.0 2.0 11/05/21 11/05/21 11/05/21 11/05/21 02:29 05:43 07:00 07:54 Temp 97.8 97.4 97.8 97.4 Pulse 74 78 78 Resp 16 18 B/P (MAP) 129/57 (81) 146/47 (80) 146/47 Pulse Ox 97 92 O2 Delivery Nasal Cannula BiPAP/CPAP Nasal Cannula O2 Flow Rate 2.0 2.0 11/05/21 11/05/21 11/05/21 11/05/21 08:00 08:01 08:01 08:02 Pulse 78 78 78 B/P (MAP) 146/47 146/47 146/47 O2 Delivery Nasal Cannula O2 Flow Rate 3.0 11/05/21 11/05/21 11/05/21 11/05/21 08:54 10:52 11:34 11:36 Temp 97.4 96.8 97.4 96.8 Pulse 78 79 71 Resp 18 18 B/P (MAP) 125/51 (75) 152/54 Pulse Ox 94 92 O2 Delivery Nasal Cannula Nasal Cannula O2 Flow Rate 4.0 2.0 Intake and Output 11/04/21 11/04/21 11/05/21 15:00 23:00 07:00 Intake Total 240 ml 590 ml 0 ml Balance 240 ml 590 ml 0 ml Justifications for Admission Other Justification Hypoxic respiratory failure VIOLET JOHNSON MD Nov 05, 2021 12:33
--- NOTE | 2021-11-05 12:51 | PDOC ---
PROGRESS NOTES Date of Service: DATE: 11/05/21 TIME: 12:49 Subjective Subjective c/o dyspnea, on BiPAP Objective Objective Vital Signs Date Time Temp Pulse Resp B/P (MAP) Pulse Ox O2 Delivery O2 Flow Rate FiO2 11/05/21 11:36 96.8 96.8 11/05/21 11:34 71 18 152/54 11/05/21 10:52 92 Nasal Cannula 2.0 Intake and Output 11/05/21 07:00 Intake Total 830 ml Balance 830 ml Intake Oral 830 ml # Voids 5 # Bowel Movements 3 Physical Exam Abdomen: Normal bowel sounds, Soft, No tenderness, No hepatosplenomegaly, No masses Heart: Regular rate, Normal S1, Normal S2, No murmurs, Gallops Extremities: No clubbing, Other (1+ pitting edema) General: Alert, Oriented X3, Cooperative HEENT: Atraumatic Lungs: Other (DECREASED IN BASES BILAT) Neuro: Normal speech Psych/Mental Status: Mental status NL, Mood NL Skin: No rashes Assessment Assessment 1. Acute hypoxic respiratory failure secondary to combination of bilateral pneumonia and acute on chronic diastolic heart failure. Continue intravenous antibiotics. 2. Acute on chronic diastolic heart failure: We will defer diuretics to nephrology team secondary to his significant renal insufficiency. Plan to initiate hemodialysis tomorrow. Check 2D echo to assess LV systolic function. 3. Non-STEMI most probably type II/demand ischemia. Patient denied any chest pain and EKG without acute changes. We will consider ischemic evaluation as an outpatient. 4. End-stage renal disease: Patient has AV fistula placed in the recent past. Nephrology planning on initiating dialysis tomorrow. 5. Hypertension: Controlled 6. Hypothyroidism: Continue levothyroxine 7. Hyperlipidemia: Continue statin therapy Plan Plan of Care Problems Medical Problems: (1) Elevated troponin Status: Acute (2) Hypoxia Status: Acute (3) Person under investigation for COVID-19 Status: Acute (4) Pneumonia Status: Acute Comment Review of Relevant I have reviewed the following items swathi (where applicable) has been applied. Labs Laboratory Tests Test 11/05/21 04:00 White Blood Count 13.0 x10^3/uL (4.0-11.0) Red Blood Count 2.52 x10^6/uL (4.30-5.70) Hemoglobin 6.6 g/dL (13.0-17.5) Hematocrit 21.1 % (39.0-53.0) Mean Corpuscular Volume 84 fL (79-100) Mean Corpuscular Hemoglobin 26 pg (25-35) Mean Corpuscular Hemoglobin Concent 31 g/dL (31-37) Red Cell Distribution Width 15.0 % (11.5-14.5) Platelet Count 375 x10^3/uL (140-400) Neutrophils (%) (Auto) 94 % (31-73) Lymphocytes (%) (Auto) 2 % (24-48) Monocytes (%) (Auto) 4 % (0-9) Eosinophils (%) (Auto) 0 % (0-3) Basophils (%) (Auto) 0 % (0-3) Neutrophils # (Auto) 12.2 x10^3/uL (1.8-7.7) Lymphocytes # (Auto) 0.3 x10^3/uL (1.0-4.8) Monocytes # (Auto) 0.6 x10^3/uL (0.0-1.1) Eosinophils # (Auto) 0.0 x10^3/uL (0.0-0.7) Basophils # (Auto) 0.0 x10^3/uL (0.0-0.2) Segmented Neutrophils % 99 % (35-66) Band Neutrophils % 1 % (0-9) Toxic Granulation Slight Platelet Estimate Adequate (ADEQUATE) Anisocytosis Slight Ovalocytes Occ Schistocytes Occ Sodium Level 140 mmol/L (136-145) Potassium Level 5.2 mmol/L (3.5-5.1) Chloride Level 110 mmol/L (98-107) Carbon Dioxide Level 13 mmol/L (21-32) Anion Gap 17 (6-14) Blood Urea Nitrogen 106 mg/dL (8-26) Creatinine 4.7 mg/dL (0.7-1.3) Estimated GFR (Cockcroft-Gault) 12.8 BUN/Creatinine Ratio 23 (6-20) Glucose Level 178 mg/dL (70-99) Calcium Level 7.8 mg/dL (8.5-10.1) Phosphorus Level 8.0 mg/dL (2.6-4.7) Magnesium Level 2.7 mg/dL (1.8-2.4) Total Bilirubin 0.2 mg/dL (0.2-1.0) Aspartate Amino Transf (AST/SGOT) 15 U/L (15-37) Alanine Aminotransferase (ALT/SGPT) 11 U/L (16-63) Alkaline Phosphatase 73 U/L (46-116) Total Protein 5.8 g/dL (6.4-8.2) Albumin 2.1 g/dL (3.4-5.0) Albumin/Globulin Ratio 0.6 (1.0-1.7) Microbiology 11/03/21 Respiratory Culture Gram Stain - Final, Complete 11/03/21 Blood Culture - Final, Complete Medications Current Medications Acetaminophen (Tylenol) 650 mg PRN Q6HRS PRN PO MILD PAIN / TEMP > 100.3'F; Start 11/05/21 at 10:00 Azithromycin 500 mg/Sodium Chloride 250 ml @ 250 mls/hr Q24H IV Last adm inistered on 11/04/21at 20:09; Start 11/04/21 at 21:00; Stop 11/07/21 at 21:59 Ceftriaxone Sodium (Rocephin) 1 gm Q24H IVP Last administered on 11/04/21at 20:08; Start 11/04/21 at 21:00 Diphenhydramine HCl (Benadryl) 25 mg 1X ONCE IVP ; Start 11/05/21 at 10:00; Stop 11/05/21 at 10:03; Status DC Epoetin Aris-epbx (RETACRIT for NON-DIALYSIS PTS) 10,000 unit 1X ONCE SQ Last administered on 11/04/21at 16:21; Start 11/04/21 at 16:00; Stop 11/04/21 at 16:01; Status DC Furosemide (Lasix) 80 mg 1X ONCE IVP ; Start 11/05/21 at 18:00; Stop 11/05/21 at 18:01 Furosemide (Lasix) 80 mg 1X ONCE IVP ; Start 11/05/21 at 21:00; Stop 11/05/21 at 21:01 Furosemide (Lasix) 80 mg DAILY PO Last administered on 11/05/21at 07:53; Start 11/04/21 at 15:00 Lactobacillus Rhamnosus (Culturelle) 1 cap BID PO Last administered on 11/05/21at 07:52; Start 11/04/21 at 21:00 Sodium Bicarbonate (Sodium Bicarbonate) 1,300 mg TID PO Last administered on 11/05/21at 07:53; Start 11/04/21 at 15:00 Sodium Bicarbonate (Sodium Bicarb Adult 8.4% Syr) 50 meq 1X ONCE IV Last administered on 11/05/21at 08:00; Start 11/05/21 at 07:45; Stop 11/05/21 at 07:46; Status DC Sodium Bicarbonate (Sodium Bicarb Adult 8.4% Syr) 50 meq 1X ONCE IV Last administered on 11/05/21at 08:00; Start 11/05/21 at 07:45; Stop 11/05/21 at 07:46; Status DC Sodium Bicarbonate (Sodium Bicarb Adult 8.4% Syr) 50 meq STK-MED ONCE .ROUTE ; Start 11/05/21 at 07:44; Stop 11/05/21 at 07:45; Status DC Vitals/I & O Vital Sign - Last 24 Hours 11/04/21 11/04/21 11/04/21 11/04/21 13:30 15:00 16:18 19:59 Temp 97.6 97.8 97.6 97.8 Pulse 75 72 80 71 Resp 20 18 B/P (MAP) 116/46 (69) 137/57 (83) 127/53 (77) Pulse Ox 92 98 O2 Delivery Nasal Cannula Nasal Cannula O2 Flow Rate 2.0 2.0 11/04/21 11/04/21 11/04/21 11/05/21 20:00 20:07 22:50 01:00 Temp 98.1 98.1 Pulse 71 71 Resp 20 B/P (MAP) 127/53 101/46 (64) Pulse Ox 98 O2 Delivery Room Air Nasal Cannula BiPAP/CPAP O2 Flow Rate 2.0 2.0 11/05/21 11/05/21 11/05/21 11/05/21 02:29 05:43 07:00 07:54 Temp 97.8 97.4 97.8 97.4 Pulse 74 78 78 Resp 16 18 B/P (MAP) 129/57 (81) 146/47 (80) 146/47 Pulse Ox 97 92 O2 Delivery Nasal Cannula BiPAP/CPAP Nasal Cannula O2 Flow Rate 2.0 2.0 11/05/21 11/05/21 11/05/21 11/05/21 08:00 08:01 08:01 08:02 Pulse 78 78 78 B/P (MAP) 146/47 146/47 146/47 O2 Delivery Nasal Cannula O2 Flow Rate 3.0 11/05/21 11/05/21 11/05/21 11/05/21 08:54 10:52 11:34 11:36 Temp 97.4 96.8 97.4 96.8 Pulse 78 79 71 Resp 21 18 18 B/P (MAP) 125/51 (75) 152/54 Pulse Ox 94 92 O2 Delivery Nasal Cannula Nasal Cannula O2 Flow Rate 4.0 2.0 Intake and Output 11/04/21 11/04/21 11/05/21 15:00 23:00 07:00 Intake Total 240 ml 590 ml 0 ml Balance 240 ml 590 ml 0 ml DAVID COFFMAN MD Nov 05, 2021 12:51
[2021-11-05] MEDS ORDERED: FUROSEMIDE 20 MG/2 ML VIAL. IVP ONE ×3 (18:00→21:00)
[2021-11-05] MEDS: AZITHROMYCIN 500 MG in IV NORMAL SALINE 250ML 250 ML IV SCH (19:24)
[2021-11-05] MEDS: cefTRIAXone IV Push 1 GM VIAL. IVP SCH (19:25)
[2021-11-06 03:13] VITALS: BP 179/73
[2021-11-06 04:17] LABS: BASO % 0 % (0-3); EOS % 0 % (0-3); HEMATOCRIT 27.5 % (39.0-53.0); LYMPH # 0.4 x10^3/uL (1.0-4.8); LYMPH % 2 % (24-48); MEAN CORPUSCULAR HEMOGLOBIN 27 pg (25-35); MEAN CORPUSCULAR HGB CONC 33 g/dL (31-37); MEAN CORPUSCULAR VOLUME 83 fL (79-100); MONO % 6 % (0-9); NEUT # 15.8 x10^3/uL (1.8-7.7); NEUT % 92 % (31-73); PLATELET COUNT 360 x10^3/uL (140-400); RED CELL DISTRIBUTION WIDTH 14.8 % (11.5-14.5); WHITE BLOOD COUNT 17.2 x10^3/uL (4.0-11.0)
[2021-11-06 04:47] LABS: CALCIUM 7.6 mg/dL (8.5-10.1); CREATININE 4.5 mg/dL (0.7-1.3); GFR 13.4; MAGNESIUM 2.4 mg/dL (1.8-2.4); POTASSIUM 4.4 mmol/L (3.5-5.1)
[2021-11-06] MEDS: LEVOTHYROXINE 100 MCG TABLET PO SCH (05:48)
[2021-11-06 07:50] VITALS: BP 183/73
[2021-11-06] MEDS: LACTOBACILLUS RHAMNOSUS GG 1 CAPSULE. PO SCH ×2 (08:07→21:50)
[2021-11-06] MEDS: CYANOCOBALAMIN (VITAMIN B-12) 1,000 MCG TABLET. PO SCH (08:08)
[2021-11-06] MEDS: FUROSEMIDE 80 MG TABLET. PO SCH (08:08)
[2021-11-06] MEDS: DOXAZOSIN MESYLATE 4 MG TABLET. PO SCH (08:08)
[2021-11-06] MEDS: ATORVASTATIN CALCIUM 40 MG TABLET. PO SCH (08:09)
[2021-11-06] MEDS: CARVEDILOL 6.25 MG TABLET. PO SCH ×2 (08:09→17:24)
[2021-11-06] MEDS: CALCITRIOL 0.25 MCG CAPSULE. PO SCH (08:09)
[2021-11-06] MEDS: SODIUM BICARBONATE 650 MG TABLET. PO SCH ×3 (08:09→21:50)
[2021-11-06] MEDS: PANTOPRAZOLE 40 MG TABLET.DR. PO SCH (08:10)
[2021-11-06] MEDS: HEPARIN for SUB-Q USE 5,000 UNIT/ML VIAL. SQ SCH ×2 (08:10→21:53)
[2021-11-06] MEDS: LOSARTAN POTASSIUM 50 MG TABLET. PO SCH (08:10)
[2021-11-06] MEDS ORDERED: diphenhydrAMINE 50 MG/ML VIAL IV PRN ×2 (10:15)
[2021-11-06] MEDS ORDERED: IV NORMAL SALINE 1000ML BAG 1,000 ML IV PRN ×2 (10:15)
[2021-11-06] MEDS ORDERED: DIALYSIS PATIENT. MC PRN (10:15)
--- NOTE | 2021-11-06 11:15 | PDOC ---
DATE OF SERVICE DATE: 11/06/21 TIME: 11:05 SUBJECTIVE ROS sleeping with Bipap Scheduled for HDc later today No concerns voiced by nursing OBJECTIVE Vital Signs Vital Signs Date Time Temp Pulse Resp B/P (MAP) Pulse Ox O2 Delivery O2 Flow Rate FiO2 11/06/21 09:06 98 BiPAP/CPAP 11/06/21 08:10 80 183/73 11/06/21 07:50 97.9 18 3.0 97.9 I & 0 l Intake and Output 11/06/21 07:00 Intake Total 650 ml Balance 650 ml Intake Oral 610 ml Blood Product IV Normal Saline Flush 40 ml # Voids 7 PHYSICAL EXAM Physical Exam general NAD, HEEN has Bipap Neck supple Lungs decreased at bases Heart: Regular rate, Normal S1, Normal S2, No murmurs, Gallops Abdomen: Normal bowel sounds, Soft, No tenderness, No hepatosplenomegaly, No masses Neuro Grossly normal Psych/Mental Status: Mental status NL, Mood NL no richardson Derm No Rash DIAGNOSIS/ASSESSMENT Assessment & Plan CKD stage 4 /[address] Che of our practice and is being prepared for initiation of dialysis. He has AV fistula placed- has been [address] Ramirez . Not mature.Has fu appt with Dr Ramirez Saturday of this week Tunneled HDc ordered- scheduled for later today. Initiate Dialysis. Discussed treatment plan with ASHLEY Acute hypoxic respiratory failure requiring BiPAP support Bilateral pneumonia, possible gram-negative organisms Metabolic acidosis- Dialysis today Anemia - required 1 unit PRBC transfusion. Hgb stable History of DARRELL compliant with CPAP History of gastric bypass History of diabetes mellitus type 2, diet controlled COMMENT/RELEVANT DATA Meds Current Medications Medications (Trade) Dose Ordered Sig/Catherine Start Time Stop Time Status Last Admin Dose Admin Acetaminophen (Tylenol) 650 mg PRN Q6HRS PRN 11/05/21 10:00 Albuterol/ Ipratropium (Duoneb) 6 ml 1X ONCE 11/03/21 19:00 11/03/21 19:01 DC 11/03/21 19:24 6 ML Amlodipine Besylate (Norvasc) 10 mg DAILY 11/04/21 10:00 11/06/21 08:09 10 MG Atorvastatin Calcium (Lipitor) 40 mg DAILY 11/04/21 10:00 11/06/21 08:09 40 MG Azithromycin 500 mg/Sodium Chloride 250 ml @ 250 mls/hr Q24H 11/04/21 21:00 11/07/21 21:59 11/05/21 19:24 250 MLS/HR Calcitriol (Rocaltrol) 0.5 mcg DAILY 11/04/21 10:00 11/06/21 08:09 0.5 MCG Carvedilol (Coreg) 6.25 mg BIDWMEALS 11/04/21 10:00 11/06/21 08:09 6.25 MG Ceftriaxone Sodium (Rocephin) 1 gm Q24H 11/04/21 21:00 11/05/21 19:25 1 GM Cyanocobalamin (Vitamin B-12) 500 mcg DAILY 11/04/21 10:00 11/06/21 08:08 500 MCG Dextrose (Dextrose 50%-Water Syringe) 12.5 gm PRN Q15MIN PRN 11/04/21 09:45 Diphenhydramine HCl (Benadryl) 25 mg 1X PRN PRN 11/06/21 10:15 11/07/21 10:14 Docusate Sodium (Colace) 100 mg PRN DAILY PRN 11/04/21 09:45 Doxazosin Mesylate (Cardura) 2 mg DAILY 11/04/21 10:00 11/06/21 08:08 2 MG Epoetin Aris-epbx (RETACRIT for NON-DIALYSIS PTS) 10,000 unit 1X ONCE 11/04/21 16:00 11/04/21 16:01 DC 11/04/21 16:21 10,000 UNIT Furosemide (Lasix) 80 mg 1X ONCE 11/05/21 20:00 11/05/21 20:01 DC 11/05/21 19:24 80 MG Heparin Sodium (Porcine) (Heparin Sodium) 5,000 unit Q12HR 11/04/21 10:00 11/05/21 19:26 5,000 UNIT Hydralazine HCl (Apresoline) 100 mg TID 11/04/21 10:00 11/06/21 08:09 100 MG Info (PHARMACY MONITORING -- do not chart) 1 each PRN DAILY PRN 11/06/21 10:15 Lactobacillus Rhamnosus (Culturelle) 1 cap BID 11/04/21 21:00 11/06/21 08:07 1 CAP Levothyroxine Sodium (Synthroid) 200 mcg DAILY06 11/04/21 10:00 11/06/21 05:48 200 MCG Lorazepam (Ativan Inj) 0.25 mg PRN Q4HRS PRN 11/04/21 09:45 Lorazepam (Ativan) 0.5 mg PRN Q6HRS PRN 11/04/21 09:45 Losartan Potassium (Cozaar) 100 mg DAILY 11/04/21 10:00 11/06/21 08:10 100 MG Methylprednisolone Sodium Succinate (SOLU-Medrol 125MG VIAL) 125 mg 1X ONCE 11/03/21 19:00 11/03/21 19:01 DC 11/03/21 19:19 125 MG Ondansetron HCl (Zofran) 4 mg PRN Q6HRS PRN 11/04/21 09:45 Pantoprazole Sodium (Protonix) 40 mg DAILYAC 11/04/21 10:00 11/06/21 08:10 40 MG Prochlorperazine Edisylate (Compazine) 10 mg PRN Q6HRS PRN 11/04/21 09:45 Sennosides (Senna) 17.2 mg PRN BID PRN 11/04/21 09:45 Sodium Bicarbonate (Sodium Bicarbonate) 1,300 mg TID 11/04/21 15:00 11/06/21 08:09 1,300 MG Sodium Bicarbonate (Sodium Bicarb Adult 8.4% Syr) 50 meq STK-MED ONCE 11/05/21 07:44 11/05/21 07:45 DC Sodium Chloride 1,000 ml @ 400 mls/hr Q2H30M PRN 11/06/21 10:15 11/06/21 22:14 Zolpidem Tartrate (Ambien) 2.5 mg PRN QHS PRN 11/04/21 09:45 Lab Laboratory Tests Test 11/06/21 03:30 White Blood Count 17.2 x10^3/uL (4.0-11.0) Red Blood Count 3.30 x10^6/uL (4.30-5.70) Hemoglobin 9.0 g/dL (13.0-17.5) Hematocrit 27.5 % (39.0-53.0) Mean Corpuscular Volume 83 fL (79-100) Mean Corpuscular Hemoglobin 27 pg (25-35) Mean Corpuscular Hemoglobin Concent 33 g/dL (31-37) Red Cell Distribution Width 14.8 % (11.5-14.5) Platelet Count 360 x10^3/uL (140-400) Neutrophils (%) (Auto) 92 % (31-73) Lymphocytes (%) (Auto) 2 % (24-48) Monocytes (%) (Auto) 6 % (0-9) Eosinophils (%) (Auto) 0 % (0-3) Basophils (%) (Auto) 0 % (0-3) Neutrophils # (Auto) 15.8 x10^3/uL (1.8-7.7) Lymphocytes # (Auto) 0.4 x10^3/uL (1.0-4.8) Monocytes # (Auto) 1.0 x10^3/uL (0.0-1.1) Eosinophils # (Auto) 0.0 x10^3/uL (0.0-0.7) Basophils # (Auto) 0.0 x10^3/uL (0.0-0.2) Sodium Level 140 mmol/L (136-145) Potassium Level 4.4 mmol/L (3.5-5.1) Chloride Level 107 mmol/L (98-107) Carbon Dioxide Level 15 mmol/L (21-32) Anion Gap 18 (6-14) Blood Urea Nitrogen 101 mg/dL (8-26) Creatinine 4.5 mg/dL (0.7-1.3) Estimated GFR (Cockcroft-Gault) 13.4 Glucose Level 156 mg/dL (70-99) Calcium Level 7.6 mg/dL (8.5-10.1) Magnesium Level 2.4 mg/dL (1.8-2.4) Results All relevant outside records, renal labs, imaging studies, telemetry/EKG's were reviewed. Justicifation of Admission Dx: Justifications for Admission: Justification of Admission Dx: N/A ANGÉLICA FOSTER MD Nov 06, 2021 11:15
--- NOTE | 2021-11-06 11:17 | PDOC ---
AUGUSTINE MACIAS CHICKEN FANCIER 11/06/21 1117: CARDIO Progress Notes Date and Time Date of Service 11/06/21 Time of Evaluation 1115 Subjective Subjective: No Chest Pain, No Palpitations Vitals Vitals Vital Signs Date Time Temp Pulse Resp B/P (MAP) Pulse Ox O2 Delivery O2 Flow Rate FiO2 11/06/21 11:14 98 BiPAP/CPAP 11/06/21 08:10 80 183/73 11/06/21 07:50 97.9 18 3.0 97.9 Weight Weight [ ] Input and Output Intake and Output Intake and Output 11/06/21 07:00 Intake Total 650 ml Balance 650 ml Intake Oral 610 ml Blood Product IV Normal Saline Flush 40 ml # Voids 7 Laboratory Labs Laboratory Tests Test 11/06/21 03:30 White Blood Count 17.2 x10^3/uL (4.0-11.0) Red Blood Count 3.30 x10^6/uL (4.30-5.70) Hemoglobin 9.0 g/dL (13.0-17.5) Hematocrit 27.5 % (39.0-53.0) Mean Corpuscular Volume 83 fL (79-100) Mean Corpuscular Hemoglobin 27 pg (25-35) Mean Corpuscular Hemoglobin Concent 33 g/dL (31-37) Red Cell Distribution Width 14.8 % (11.5-14.5) Platelet Count 360 x10^3/uL (140-400) Neutrophils (%) (Auto) 92 % (31-73) Lymphocytes (%) (Auto) 2 % (24-48) Monocytes (%) (Auto) 6 % (0-9) Eosinophils (%) (Auto) 0 % (0-3) Basophils (%) (Auto) 0 % (0-3) Neutrophils # (Auto) 15.8 x10^3/uL (1.8-7.7) Lymphocytes # (Auto) 0.4 x10^3/uL (1.0-4.8) Monocytes # (Auto) 1.0 x10^3/uL (0.0-1.1) Eosinophils # (Auto) 0.0 x10^3/uL (0.0-0.7) Basophils # (Auto) 0.0 x10^3/uL (0.0-0.2) Sodium Level 140 mmol/L (136-145) Potassium Level 4.4 mmol/L (3.5-5.1) Chloride Level 107 mmol/L (98-107) Carbon Dioxide Level 15 mmol/L (21-32) Anion Gap 18 (6-14) Blood Urea Nitrogen 101 mg/dL (8-26) Creatinine 4.5 mg/dL (0.7-1.3) Estimated GFR (Cockcroft-Gault) 13.4 Glucose Level 156 mg/dL (70-99) Calcium Level 7.6 mg/dL (8.5-10.1) Magnesium Level 2.4 mg/dL (1.8-2.4) Microbiology Micro Microbiology 11/03/21 Respiratory Culture Gram Stain - Final, Complete 11/03/21 Blood Culture - Final, Complete Physical Exam Chest: Symmetric Assessment Assessment 1. Acute hypoxic respiratory failure secondary to combination of bilateral pneumonia and acute on chronic diastolic heart failure. Continue intravenous antibiotics. 2. Acute on chronic diastolic heart failure: Fluid offloading via HD. Echo pending to assess LV systolic function. 3. Non-STEMI most probably type II/demand ischemia. Patient denied any chest pain and EKG without acute changes. We will consider ischemic evaluation as an outpatient. 4. End-stage renal disease, hyperkalemia: Patient has AV fistula placed in the recent past. HD initiated 5. Hypertension: Controlled 6. Hypothyroidism: Continue levothyroxine 7. Hyperlipidemia: Continue statin therapy 8. Anemia; s/p transfusion Justicifation of Admission Dx: Justifications for Admission: Justification of Admission Dx: Yes Comments: Acute respiratory failure Acute on chronic diastolic CHF PNA ESRD requiring initiation of HD DAVID COFFMAN MD 11/07/21 0640: CARDIO Progress Notes Assessment Assessment Patient seen and examined 11/06/2021. Agree with CLOTH SHRINKER's assessment and plan. Acute on chronic combined systolic and diastolic heart failure better comp ensated after fluid removal with hemodialysis 2D echo showed LVEF 30% with severe hypokinesis of mid to distal anterior and anteroseptal patterson Non-STEMI could be demand ischemia but considering significant wall motion abnormalities, significant CAD/LAD stenosis needs to be ruled out Plan for cardiac catheterization when okay from nephrology standpoint AUGUSTINE MACIAS APRN Nov 06, 2021 11:17 DAVID COFFMAN MD Nov 07, 2021 06:40
[2021-11-06] MEDS ORDERED: fentaNYL PF VIAL 100 MCG/2 ML VIAL IV ONE (13:00)
[2021-11-06] MEDS ORDERED: LIDOCAINE 1%/EPI 1:100,000 20 ML VIAL. INJ ONE (13:00)
[2021-11-06] MEDS ORDERED: MIDAZOLAM HCL/PF 2 MG/2 ML VIAL. IV ONE (13:00)
[2021-11-06 13:14] VITALS: BP 146/60
--- NOTE | 2021-11-06 13:28 | PDOC ---
[facility] PROGRESS NOTE Date of Service DOS: DATE: 11/06/21 TIME: 13:25 Chief Complaint Chief Complaint Assessment/Plan Acute hypoxic respiratory failure requiring BiPAP support Bilateral pneumonia, possible gram-negative organisms Acute electrolyte derangement consistent with CKD Anemia of CKD requiring 1 unit PRBC transfusion Metabolic acidosis History of DARRELL compliant with CPAP History of gastric bypass History of diabetes mellitus type 2, diet controlled History of CKD stage IV not on hemodialysis but has AV fistula in left upper extremity Admit to hospitalist service for further management Cardiology consulted for elevated troponins Nephrology consult Continue empiric IV antibiotics IV diuresis as needed Strict I's/O Avoid nephrotoxic agents Continue with home CPAP for DARRELL Heparin for DVT prophylaxis Protonix GI prophylaxis ADA diet CODE STATUS full Discussed with RN and SW Disposition inpatient management as above DPOA: A total of 45 minutes of critical care time was spent in reviewing chart, labs, and images. Discussed with RN and SW History of Present Illness History of Present Illness 61 year old male who presents with chronic pruritus for the last week and recently returned. He states the whole time he was stayed in the cabin room most of the. He states he just has not been feeling well and has been short of breath and coughing up green mucus. He states that he has been tested for Covid 3 times in the last 3 weeks level came back negative. Upon arrival patient was 80% on room air. He does not normally wear oxygen. He is placed on 3 L and is at 92%. He has a left arm fistula. He has not had dialysis yet. He does see Dr. Che for CKD. He has a history of CKD, COVID-19, gastric bypass, renal insufficiency, former smoker, sleep apnea for which she wears a CPAP at night. 11/05/2021 No acute events overnight. Patient seen examined bedside. Hemoglobin is 6.6 today. 1 unit PRBC transfusion pending. Not more short of breath than usual. Not requiring BiPAP at this time. Saturating 92% on 2 L nasal cannula. Patient's chart, labs, images were reviewed and discussed with RN 11/06/2021 No acute events overnight. Patient seen examined bedside. Not more short of breath than usual. Saturating 98% on 5 L nasal cannula. Uses BiPAP at night. Plan for tunneled HD catheter today. While waiting for aVF to mature. Dialysis tomorrow. Patient's chart, labs, images were reviewed and discussed with RN Vitals/I&O Vitals/I&O: Vital Signs Date Time Temp Pulse Resp B/P (MAP) Pulse Ox O2 Delivery O2 Flow Rate FiO2 11/06/21 13:22 98 BiPAP/CPAP 11/06/21 13:14 70 9 5.0 11/06/21 08:10 183/73 11/06/21 07:50 97.9 97.9 I & O 11/05/21 11/05/21 11/06/21 15:00 23:00 07:00 Intake Total 280 ml 370 ml 0 ml Balance 280 ml 370 ml 0 ml Physical Exam General: Alert, Oriented X3, Cooperative Heart: Regular rate, Normal S1, Normal S2, No murmurs, Gallops Abdomen: Normal bowel sounds, Soft, No tenderness, No hepatosplenomegaly, No masses Extremities: No clubbing, Other (1+ pitting edema) Skin: No rashes Labs Labs: Laboratory Tests Test 11/06/21 03:30 White Blood Count 17.2 x10^3/uL (4.0-11.0) Red Blood Count 3.30 x10^6/uL (4.30-5.70) Hemoglobin 9.0 g/dL (13.0-17.5) Hematocrit 27.5 % (39.0-53.0) Mean Corpuscular Volume 83 fL (79-100) Mean Corpuscular Hemoglobin 27 pg (25-35) Mean Corpuscular Hemoglobin Concent 33 g/dL (31-37) Red Cell Distribution Width 14.8 % (11.5-14.5) Platelet Count 360 x10^3/uL (140-400) Neutrophils (%) (Auto) 92 % (31-73) Lymphocytes (%) (Auto) 2 % (24-48) Monocytes (%) (Auto) 6 % (0-9) Eosinophils (%) (Auto) 0 % (0-3) Basophils (%) (Auto) 0 % (0-3) Neutrophils # (Auto) 15.8 x10^3/uL (1.8-7.7) Lymphocytes # (Auto) 0.4 x10^3/uL (1.0-4.8) Monocytes # (Auto) 1.0 x10^3/uL (0.0-1.1) Eosinophils # (Auto) 0.0 x10^3/uL (0.0-0.7) Basophils # (Auto) 0.0 x10^3/uL (0.0-0.2) Sodium Level 140 mmol/L (136-145) Potassium Level 4.4 mmol/L (3.5-5.1) Chloride Level 107 mmol/L (98-107) Carbon Dioxide Level 15 mmol/L (21-32) Anion Gap 18 (6-14) Blood Urea Nitrogen 101 mg/dL (8-26) Creatinine 4.5 mg/dL (0.7-1.3) Estimated GFR (Cockcroft-Gault) 13.4 Glucose Level 156 mg/dL (70-99) Calcium Level 7.6 mg/dL (8.5-10.1) Magnesium Level 2.4 mg/dL (1.8-2.4) Hepatitis B Surface Antigen Nonreactive (Nonreactive) Hepatitis B Core Total Antibody Nonreactive (Nonreactive) Assessment and Plan Assessmemt and Plan Problems Medical Problems: (1) Elevated troponin Status: Acute (2) Hypoxia Status: Acute (3) Person under investigation for COVID-19 Status: Acute (4) Pneumonia Status: Acute Comment Review of Relevant I have reviewed the following items swathi (where applicable) has been applied. Medications: Current Medications Medications (Trade) Dose Ordered Sig/Catherine Route PRN Reason Start Time Stop Time Status Last Admin Dose Admin Furosemide (Lasix) 80 mg 1X ONCE IVP 11/05/21 20:00 11/05/21 20:01 DC 11/05/21 19:24 Heparin Sodium/ Sodium Chloride (HEPARIN for ARTERIAL LINE FLUSH) 1,000 unit 1X ONCE IART 11/06/21 13:00 11/06/21 13:02 DC 11/06/21 13:10 Midazolam HCl (Versed) 1 mg 1X ONCE IV 11/06/21 13:00 11/06/21 13:02 DC 11/06/21 13:11 Fentanyl Citrate (Fentanyl 2ml Vial) 50 mcg 1X ONCE IV 11/06/21 13:00 11/06/21 13:02 DC 11/06/21 13:12 Lidocaine/ Epinephrine (LIDOCAINE 1%-EPI 1:100,000 Multi-Dose) 15 ml 1X ONCE INJ 11/06/21 13:00 11/06/21 13:02 DC 11/06/21 13:11 Cefazolin Sodium/ Dextrose 50 ml @ 100 mls/hr 1X ONCE IV 11/06/21 13:00 11/06/21 13:29 11/06/21 13:11 Justifications for Admission Other Justification Hypoxic respiratory failure YARIEL WEN MD Nov 06, 2021 13:28
--- NOTE | 2021-11-06 13:33 | RAD ---
Procedure: Tunneled hemodialysis catheter placement Clinical Indication: Renal failure. Immature fistula. Pulmonary edema, shortness of breath. Sedation: Conscious sedation was administered for 20 minutes. The patient was monitored by a [facility] ed independent observer throughout the time of sedation. Please refer to the medical record for exac t doses of medications utilized to achieve moderate sedation. Fluoroscopy time: 1 minute Dose area product: 3 Hare centimeter squared Sterility: All elements of maximal sterile barrier technique including the use of a cap, mask, steril e gown, sterile gloves, large sterile sheet, appropriate hand hygiene, and 2% chlorhexidine for cutan eous antisepsis (or acceptable alternative antiseptic per current guidelines) were followed for this procedure. Consent: The procedure was explained in its entirety to the patient or the patients designated repres entative by a member of the treatment team, including a discussion of the risks, benefits and commonl y accepted alternatives to the procedure, as well as the expected consequences of no therapy whatsoev er. Discussion of the risks included, but was not limited to, those that are most frequent and thos e that are rare but possibly severe or life-threatening, as well as the possibility of unforeseen com plications. Technique and Findings: Following informed consent, the patient was prepped and draped in the usual s terile fashion. Ultrasound interrogation of the right neck revealed patency and compressibility of t he right internal jugular vein. A 21-gauge micropuncture was then used to gain access to this vein u nder ultrasound guidance. A hard copy ultrasound image was recorded. The needle was exchanged over a wire for a 4 Indonesian sheath which was used to guide an Amplatz wire into the IVC. The skin over the right anterior chest wall was copiously anesthetized with 1% Lidocaine plus Epinephrine and a small dermatotomy was made. 23 cm tip to cuff palindrome tunneled hemodialysis catheter was then tunneled s ubcutaneously towards the neck dermatotomy and deployed through a large caliber peel-away sheath unde r fluoroscopic guidance such that the distal tip resided in the mid right atrium. Manual flow rates were assessed and found to be excellent. The catheter was then flushed, packed with Heparin, capped, and sutured to the skin. The neck dermatotomy was closed with Dermabond. Impression: Ultrasound and fluoroscopically guided placement of a right internal jugular tunneled hem odialysis catheter Electronically signed by: River Rubio MD (11/06/2021 1:30 PM) [id number]
--- NOTE | 2021-11-06 14:09 | NUR ---
SS following for discharge planning. SS reviewed pt chart and discussed with pt RN. Pt is from home with spouse and is currently requiring oxygen at four liters nasal canula with BIPAP PRN. Cardiology, Nephrology, and Wound Care consulted. Pt on IV Azithromycin and IV Rocephin. COVID19 negative. Tunneled cath placed. Pt new to hemodialysis. Referral phoned and faxed to [facility], ; fax [phone]. SS will continue to follow for discharge planning.
--- NOTE | 2021-11-06 16:23 | NUR ---
Wound Care: Attempted to see patient regarding wound care, patient off unit at this time. Wound care will try again tomorrow.
[2021-11-06 19:40] VITALS: BP 140/57
[2021-11-06] MEDS: cefTRIAXone IV Push 1 GM VIAL. IVP SCH (21:51)
[2021-11-06] MEDS: AZITHROMYCIN 500 MG in IV NORMAL SALINE 250ML 250 ML IV SCH (21:51)
[2021-11-06 23:10] VITALS: BP 135/59
[2021-11-07 03:00] VITALS: BP 138/70
[2021-11-07 04:16] LABS: BASO % 0 % (0-3); EOS % 0 % (0-3); HEMATOCRIT 26.8 % (39.0-53.0); HEMOGLOBIN 8.6 g/dL (13.0-17.5); LYMPH # 0.3 x10^3/uL (1.0-4.8); LYMPH % 3 % (24-48); MEAN CORPUSCULAR HEMOGLOBIN 27 pg (25-35); MEAN CORPUSCULAR HGB CONC 32 g/dL (31-37); MEAN CORPUSCULAR VOLUME 83 fL (79-100); MONO # 1.1 x10^3/uL (0.0-1.1); MONO % 8 % (0-9); NEUT # 11.8 x10^3/uL (1.8-7.7); NEUT % 89 % (31-73); PLATELET COUNT 340 x10^3/uL (140-400); RED BLOOD COUNT 3.25 x10^6/uL (4.30-5.70); RED CELL DISTRIBUTION WIDTH 15.1 % (11.5-14.5); WHITE BLOOD COUNT 13.2 x10^3/uL (4.0-11.0)
[2021-11-07 04:32] LABS: CALCIUM 7.5 mg/dL (8.5-10.1); CREATININE 2.9 mg/dL (0.7-1.3); GFR 22.3; MAGNESIUM 2.1 mg/dL (1.8-2.4); POTASSIUM 3.7 mmol/L (3.5-5.1)
[2021-11-07] MEDS: LEVOTHYROXINE 100 MCG TABLET PO SCH (06:00)
--- NOTE | 2021-11-07 06:38 | CARD ---
MR#: [id number] Date of Study: 11/06/2021 Ordering Physician: DAVID COFFMAN, Referring Physician: DAVID COFFMAN Tech: Stephanie Morley [facility] APPROVED REPORT EXAM: Two-dimensional and M-mode echocardiogram with Doppler and color Doppler. Other Information Quality : GoodHR: 87bpm Rhythm : NSR INDICATION Congestive Heart Failure RISK FACTORS Hypertension Obesity 2D DIMENSIONS RVDd4.1 (2.9-3.5cm)Left Atrium(2D)4.6 (1.6-4.0cm) IVSd1.2 (0.7-1.1cm)Aortic Root(2D)3.1 (2.0-3.7cm) LVDd5.6 (3.9-5.9cm)LVOT Diameter2.1 (1.8-2.4cm) PWd1.2 (0.7-1.1cm)LVDs3.5 (2.5-4.0cm) FS (%) 37.8 %SV104.0 ml LVEF(%)67.2 (>50%) Aortic Valve AoV Peak Jethro.135.3cm/sAoV VTI27.0cm AO Peak GR.7.3mmHgLVOT Peak Jethro.107.0cm/s AO Mean GR.3mmHgAVA (VMAX)2.79cm2 Mitral Valve MV E Elpihjhl937.5cm/sMV DECEL FLBD628kp MV A Itbqzpqa79.7cm/sE/A Ratio1.5 Pulmonary Valve PV Peak Maelmuqt943.5cm/s Tricuspid Valve TR P. Hptakovf547rl/sTR Peak Gr.69mmHg LEFT VENTRICLE The Left Ventricle is borderline dilated. There is mild concentric left ventricular hypertrophy. Becky re hypokinesis of the mid to distal anterior and anteroseptal patterson. The ejection fraction is estimat ed at 30%. Transmitral Doppler flow pattern is Grade II-pseudonormal filling dynamics. RIGHT VENTRICLE The right ventricle is normal size. The right ventricle is mildly hypertrophied. The right ventricula r systolic function is normal. ATRIA The left atrium size is normal. The right atrium is borderline dilated. The interatrial septum is int act with no evidence for an atrial septal defect or patent foramen ovale as noted on 2-D or Doppler i magkaleb. AORTIC VALVE The aortic valve is normal in structure and function. Doppler and Color Flow revealed no significant aortic regurgitation. There is no significant aortic valvular stenosis. MITRAL VALVE The mitral valve is normal in structure and function. There is no evidence of mitral valve prolapse. There is no mitral valve stenosis. Doppler and Color-flow revealed mild mitral regurgitation. TRICUSPID VALVE The tricuspid valve is normal in structure and function. Doppler and Color Flow revealed trace to mil d tricuspid regurgitation. Estimated PAP 50-55 mmHg. There is no tricuspid valve stenosis. PULMONIC VALVE The pulmonary valve is normal in structure and function. Doppler and Color Flow revealed mild pulmoni c valvular regurgitation. GREAT VESSELS The aortic root is normal in size. The ascending aorta is normal in size. The IVC is dilated and arielle apses <50% with inspiration. PERICARDIAL EFFUSION There is no evidence of significant pericardial effusion. Critical Notification Critical Value: No <Conclusion> Severe hypokinesis of the mid to distal anterior and anteroseptal patterson. The ejection fraction is estimated at 30%. Transmitral Doppler flow pattern is Grade II-pseudonormal filling dynamics. Mild mitral regurgitation. Trace to mild tricuspid regurgitation. Estimated PAP 50-55 mmHg. There is no evidence of significant pericardial effusion. Signed by : David Coffman, Electronically Approved : 11/07/2021 06:38:28
[2021-11-07 07:16] LABS: BILIRUBIN,URINE NEGATIVE (NEG); CLARITY,URINE CLEAR; COLOR,URINE YELLOW; NITRITE,URINE NEGATIVE (NEG); PH,URINE 5.5 (<5.0-8.0); PROTEIN,URINE >=300 mg/dL (NEG-TRACE); UROBILINOGEN,URINE 0.2 mg/dL (0.2 mg/dL)
[2021-11-07 07:30] VITALS: BP 119/47
[2021-11-07 07:30] LABS: AMORPHOUS SEDIMENT,UR PRESENT /HPF; BACTERIA,URINE FEW /HPF (0-FEW)
[2021-11-07 07:31] LABS: HYALINE CASTS, URINE OCCASIONAL /HPF; RBC,URINE 0 /HPF (0-2)
[2021-11-07] MEDS: CARVEDILOL 6.25 MG TABLET. PO SCH ×2 (08:00→17:39)
[2021-11-07] MEDS ORDERED: DIALYSIS PATIENT. MC PRN ×2 (08:15)
[2021-11-07] MEDS ORDERED: IV NORMAL SALINE 1000ML BAG 1,000 ML IV PRN ×2 (08:15)
[2021-11-07] MEDS: LACTOBACILLUS RHAMNOSUS GG 1 CAPSULE. PO SCH ×2 (09:00→22:26)
[2021-11-07] MEDS: SODIUM BICARBONATE 650 MG TABLET. PO SCH ×3 (09:00→22:26)
[2021-11-07] MEDS: HEPARIN for SUB-Q USE 5,000 UNIT/ML VIAL. SQ SCH ×2 (09:00→22:29)
[2021-11-07] MEDS ORDERED: LIDOCAINE 1% Multi-Dose 20 ML VIAL. ONE (10:29)
[2021-11-07] MEDS ORDERED: IOHEXOL 300 MG/ML 100ML VIAL. ONE (10:29)
[2021-11-07] MEDS ORDERED: VERAPAMIL 5 MG/2 ML VIAL. ONE (10:58)
[2021-11-07] MEDS ORDERED: fentaNYL PF VIAL 100 MCG/2 ML VIAL ONE (10:58)
[2021-11-07] MEDS ORDERED: HEPARIN for IV BOLUS 10,000 UNIT/10 ML VIAL. ONE (10:58)
[2021-11-07] MEDS ORDERED: NITROGLYCERIN 200 MCG/2 ML SYRINGE FOR CATH/VASC LAB. ONE (10:58)
[2021-11-07] MEDS ORDERED: MIDAZOLAM HCL/PF 5 MG/5 ML VIAL. ONE (10:58)
--- NOTE | 2021-11-07 11:03 | PDOC ---
DATE OF SERVICE DATE: 11/07/21 TIME: 11:03 SUBJECTIVE ROS Scheduled for Cardiac cath today OBJECTIVE Vital Signs Vital Signs Date Time Temp Pulse Resp B/P (MAP) Pulse Ox O2 Delivery O2 Flow Rate FiO2 11/07/21 08:00 Bi-pap 11/07/21 07:50 93 5.0 11/07/21 07:30 97.7 79 22 119/47 (71) 97.7 I & 0 Intake and Output 11/07/21 07:00 Intake Total 800 ml Balance 800 ml Intake Oral 800 ml # Voids 1 PHYSICAL EXAM Physical Exam general NAD, HEEN has Bipap Neck supple Lungs decreased at bases Heart: Regular rate, Normal S1, Normal S2, No murmurs, Gallops Abdomen: Normal bowel sounds, Soft, No tenderness, No hepatosplenomegaly, No masses Neuro Grossly normal Psych/Mental Status: Mental status NL, Mood NL no richardson Derm No Rash DIAGNOSIS/ASSESSMENT Assessment & Plan New Onset ESRD followed by Dr. Che of our practic HInitiated on HD via Tunneled HDc on 11/06/21 2 treatment today. Discussed treatment plan with [facility] -Tunneled HDc on 11/06/21 . e has AV fistula placed- has been [address] Ramirez . Not mature.Has fu appt with Dr Ramirez Saturday of this week . Acute hypoxic respiratory stable Bilateral pneumonia, possible gram-negative organisms Metabolic acidosis- Resolved after 1 st dialysis on 11/06 Anemia - required 1 unit PRBC transfusion. Hgb stable Acute on chronic combined systolic and diastolic heart failure compensated. 2D echo showed LVEF 30% with severe hypokinesis of mid to distal anterior and anteroseptal patterson Non-STEMI could be demand ischemia but considering significant wall motion abnormalities, significant CAD/LAD stenosis needs to be ruled out . Plan for cardiac catheterization today History of DARRELL compliant with CPAP History of gastric bypass History of diabetes mellitus type 2, diet controlled COMMENT/RELEVANT DATA Meds Current Medications Medications (Trade) Dose Ordered Sig/Catherine Start Time Stop Time Status Last Admin Dose Admin Acetaminophen (Tylenol) 650 mg PRN Q6HRS PRN 11/05/21 10:00 Albuterol/ Ipratropium (Duoneb) 6 ml 1X ONCE 11/03/21 19:00 11/03/21 19:01 DC 11/03/21 19:24 6 ML Amlodipine Besylate (Norvasc) 10 mg DAILY 11/04/21 10:00 11/06/21 08:09 10 MG Atorvastatin Calcium (Lipitor) 40 mg DAILY 11/04/21 10:00 11/06/21 08:09 40 MG Azithromycin 500 mg/Sodium Chloride 250 ml @ 250 mls/hr Q24H 11/04/21 21:00 11/07/21 21:59 11/06/21 21:51 250 MLS/HR Calcitriol (Rocaltrol) 0.5 mcg DAILY 11/04/21 10:00 11/06/21 08:09 0.5 MCG Carvedilol (Coreg) 6.25 mg BIDWMEALS 11/04/21 10:00 11/06/21 17:24 6.25 MG Cefazolin Sodium/ Dextrose 50 ml @ 100 mls/hr 1X ONCE 11/06/21 13:00 11/06/21 13:29 DC 11/06/21 13:11 100 MLS/HR Ceftriaxone Sodium (Rocephin) 1 gm Q24H 11/04/21 21:00 11/06/21 21:51 1 GM Cyanocobalamin (Vitamin B-12) 500 mcg DAILY 11/04/21 10:00 11/06/21 08:08 500 MCG Dextrose (Dextrose 50%-Water Syringe) 12.5 gm PRN Q15MIN PRN 11/04/21 09:45 Diphenhydramine HCl (Benadryl) 25 mg 1X PRN PRN 11/06/21 10:15 11/07/21 10:14 DC Docusate Sodium (Colace) 100 mg PRN DAILY PRN 11/04/21 09:45 Doxazosin Mesylate (Cardura) 2 mg DAILY 11/04/21 10:00 11/06/21 08:08 2 MG Epoetin Aris-epbx (RETACRIT for NON-DIALYSIS PTS) 10,000 unit 1X ONCE 11/04/21 16:00 11/04/21 16:01 DC 11/04/21 16:21 10,000 UNIT Fentanyl Citrate (Fentanyl 2ml Vial) 100 mcg STK-MED ONCE 11/07/21 10:58 11/07/21 10:59 DC Furosemide (Lasix) 80 mg 1X ONCE 11/05/21 20:00 11/05/21 20:01 DC 11/05/21 19:24 80 MG Heparin Sodium (Porcine) (Heparin Sodium) 10,000 unit STK-MED ONCE 11/07/21 10:58 11/07/21 10:59 DC Heparin Sodium/ Sodium Chloride 500 ml @ As Directed STK-MED ONCE 11/07/21 10:29 11/07/21 10:29 DC Heparin Sodium/ Sodium Chloride (HEPARIN for ARTERIAL LINE FLUSH) 1,000 unit 1X ONCE 11/06/21 13:00 11/06/21 13:02 DC 11/06/21 13:10 1,000 UNIT Hydralazine HCl (Apresoline) 100 mg TID 11/04/21 10:00 11/06/21 21:50 100 MG Info (PHARMACY MONITORING -- do not chart) 1 each PRN DAILY PRN 11/07/21 08:15 Iohexol (Omnipaque 300 Mg/ml) 100 ml STK-MED ONCE 11/07/21 10:29 11/07/21 10:29 DC Lactobacillus Rhamnosus (Culturelle) 1 cap BID 11/04/21 21:00 11/06/21 21:50 1 CAP Levothyroxine Sodium (Synthroid) 200 mcg DAILY06 11/04/21 10:00 11/06/21 05:48 200 MCG Lidocaine HCl (Lidocaine 1% 20ml Vial) 20 ml STK-MED ONCE 11/07/21 10:29 11/07/21 10:29 DC Lidocaine/ Epinephrine (LIDOCAINE 1%-EPI 1:100,000 Multi-Dose) 15 ml 1X ONCE 11/06/21 13:00 11/06/21 13:02 DC 11/06/21 13:11 15 ML Lorazepam (Ativan Inj) 0.25 mg PRN Q4HRS PRN 11/04/21 09:45 Lorazepam (Ativan) 0.5 mg PRN Q6HRS PRN 11/04/21 09:45 Losartan Potassium (Cozaar) 100 mg DAILY 11/04/21 10:00 11/06/21 08:10 100 MG Methylprednisolone Sodium Succinate (SOLU-Medrol 125MG VIAL) 125 mg 1X ONCE 11/03/21 19:00 11/03/21 19:01 DC 11/03/21 19:19 125 MG Midazolam HCl (Versed) 5 mg STK-MED ONCE 11/07/21 10:58 11/07/21 10:59 DC Nitroglycerin (Nitroglycerin) 200 mcg STK-MED ONCE 11/07/21 10:58 11/07/21 10:59 DC Ondansetron HCl (Zofran) 4 mg PRN Q6HRS PRN 11/04/21 09:45 Pantoprazole Sodium (Protonix) 40 mg DAILYAC 11/04/21 10:00 11/06/21 08:10 40 MG Prochlorperazine Edisylate (Compazine) 10 mg PRN Q6HRS PRN 11/04/21 09:45 Sennosides (Senna) 17.2 mg PRN BID PRN 11/04/21 09:45 Sodium Bicarbonate (Sodium Bicarbonate) 1,300 mg TID 11/04/21 15:00 11/06/21 21:50 1,300 MG Sodium Bicarbonate (Sodium Bicarb Adult 8.4% Syr) 50 meq STK-MED ONCE 11/05/21 07:44 11/05/21 07:45 DC Sodium Chloride 1,000 ml @ 400 mls/hr Q2H30M PRN 11/07/21 08:15 11/07/21 20:14 Verapamil HCl (Verapamil) 5 mg STK-MED ONCE 11/07/21 10:58 11/07/21 10:59 DC Zolpidem Tartrate (Ambien) 2.5 mg PRN QHS PRN 11/04/21 09:45 Lab Laboratory Tests Test 11/07/21 03:00 11/07/21 07:00 White Blood Count 13.2 x10^3/uL (4.0-11.0) Red Blood Count 3.25 x10^6/uL (4.30-5.70) Hemoglobin 8.6 g/dL (13.0-17.5) Hematocrit 26.8 % (39.0-53.0) Mean Corpuscular Volume 83 fL (79-100) Mean Corpuscular Hemoglobin 27 pg (25-35) Mean Corpuscular Hemoglobin Concent 32 g/dL (31-37) Red Cell Distribution Width 15.1 % (11.5-14.5) Platelet Count 340 x10^3/uL (140-400) Neutrophils (%) (Auto) 89 % (31-73) Lymphocytes (%) (Auto) 3 % (24-48) Monocytes (%) (Auto) 8 % (0-9) Eosinophils (%) (Auto) 0 % (0-3) Basophils (%) (Auto) 0 % (0-3) Neutrophils # (Auto) 11.8 x10^3/uL (1.8-7.7) Lymphocytes # (Auto) 0.3 x10^3/uL (1.0-4.8) Monocytes # (Auto) 1.1 x10^3/uL (0.0-1.1) Eosinophils # (Auto) 0.0 x10^3/uL (0.0-0.7) Basophils # (Auto) 0.0 x10^3/uL (0.0-0.2) Sodium Level 140 mmol/L (136-145) Potassium Level 3.7 mmol/L (3.5-5.1) Chloride Level 105 mmol/L (98-107) Carbon Dioxide Level 22 mmol/L (21-32) Anion Gap 13 (6-14) Blood Urea Nitrogen 56 mg/dL (8-26) Creatinine 2.9 mg/dL (0.7-1.3) Estimated GFR (Cockcroft-Gault) 22.3 Glucose Level 120 mg/dL (70-99) Calcium Level 7.5 mg/dL (8.5-10.1) Magnesium Level 2.1 mg/dL (1.8-2.4) Urine Collection Type Unknown Urine Color Yellow Urine Clarity Clear Urine pH 5.5 (<5.0-8.0) Urine Specific [place] 1.015 (1.000-1.030) Urine Protein >=300 mg/dL (NEG-TRACE) Urine Glucose (UA) 100 mg/dL (NEG) Urine Ketones (Stick) Trace mg/dL (NEG) Urine Blood Negative (NEG) Urine Nitrite Negative (NEG) Urine Bilirubin Negative (NEG) Urine Urobilinogen Dipstick 0.2 mg/dL (0.2 mg/dL) Urine Leukocyte Esterase Negative (NEG) Urine RBC 0 /HPF (0-2) Urine WBC 1-4 /HPF (0-4) Urine Squamous Epithelial Cells Occ /LPF Urine Amorphous Sediment Present /HPF Urine Bacteria Few /HPF (0-FEW) Urine Hyaline Casts Occasional /HPF Results All relevant outside records, renal labs, imaging studies, telemetry/EKG's were reviewed. Justicifation of Admission Dx: Justifications for Admission: Justification of Admission Dx: Yes ANGÉLICA FOSTER MD Nov 07, 2021 11:03
[2021-11-07] MEDS ORDERED: diphenhydrAMINE 50 MG/ML VIAL ONE (11:06)
[2021-11-07] MEDS ORDERED: LIDOCAINE 1% Multi-Dose 20 ML VIAL. INJ ONE (11:15)
[2021-11-07] MEDS ORDERED: IOHEXOL 300 MG/ML 100ML VIAL. IART ONE (11:15)
[2021-11-07] MEDS ORDERED: MIDAZOLAM HCL/PF 5 MG/5 ML VIAL. IV ONE (11:15)
[2021-11-07] MEDS ORDERED: fentaNYL PF VIAL 100 MCG/2 ML VIAL IV ONE (11:15)
[2021-11-07] MEDS ORDERED: CONTRAST GIVEN. MC PRN (11:30)
[2021-11-07 11:36] VITALS: BP 137/52
[2021-11-07] MEDS ORDERED: diphenhydrAMINE 50 MG/ML VIAL IVP ONE (12:00)
--- NOTE | 2021-11-07 12:00 | NUR ---
SS following up with discharge planning. SS reviewed pt chart and discussed with pt RN. Pt is currently requiring oxygen at five liters nasal canula. COVID19 negative. Pt had heart cath today. Pt has no home oxygen. Pt on IV Azithromycin, IV Rocephin, and PO Lasix. Hemodialysis. Referral sent to [facility], ; fax [phone], yesterday. Updated flow sheets and labs sent to [facility] as requested. Currently awaiting confirmed chair time and location at this time. Not ready. SS will continue to follow for discharge planning.
--- NOTE | 2021-11-07 12:11 | PDOC ---
MODERATE SEDATION ASSESSMENT RISKS/ALTERNATIVES Risks/Alternatives Risks and alternatives of this type of sedation and procedure discussed with: RISK/ALTERNATIVES: Patient H & P ON CHART H & P H & P on chart and reviewed for co-morbid conditions and appropriate labs. H&P ON CHART: Yes STATUS PREG STATUS ASSESSED: N/A MEDS/ALLERGIES REVIEWED Meds/Allergies Reviewed Medications and Allergies including time and route of recently administered narcotics and sedatives. MEDS/ALLERGIES REVIEWED: Yes ASA RATING ASA RATING: II AIRWAY ASSESSMENT Airway Assessment Airway patency, oral function limitations, presence of caps, crowns, dentures, partials, and ability to extend neck assessed. AIRWAY ASSESSMENT: Yes MALLAMPATI SCORE MALLAMPATI SCORE: II PRE-SEDATION ASSESSMENT PRE-SEDATION ASSESSMENT: Yes DAVID COFFMAN MD Nov 07, 2021 12:11
[2021-11-07] MEDS ORDERED: 0.9 % SODIUM CHLORIDE 10 ML DISP.SYRIN. IV PRN (12:15)
--- NOTE | 2021-11-07 14:26 | PDOC ---
[employer] PROGRESS NOTE Date of Service DOS: DATE: 11/07/21 TIME: 14:24 Chief Complaint Chief Complaint Assessment/Plan Acute on chronic CHF with systolic LV EF of 30% and diastolic grade 2 pseudonormal filling dynamics. Acute hypoxic respiratory failure requiring BiPAP support Bilateral pneumonia, possible gram-negative organisms Acute electrolyte derangement consistent with CKD Anemia of CKD requiring 1 unit PRBC transfusion Metabolic acidosis History of DARRELL compliant with CPAP History of gastric bypass History of diabetes mellitus type 2, diet controlled History of CKD stage IV not on hemodialysis but has AV fistula in left upper extremity's tunneled catheter in place and started on hemodialysis. Pending [facility] today Cardiology consulted for elevated troponins Nephrology consult Continue empiric IV antibiotics IV diuresis as needed Strict I's/O Avoid nephrotoxic agents Continue with home CPAP for DARRELL Heparin for DVT prophylaxis Protonix GI prophylaxis ADA diet CODE STATUS full Discussed with RN and SW Disposition inpatient management as above DPOA: A total of 45 minutes of critical care time was spent in reviewing chart, labs, and images. Discussed with RN and SW History of Present Illness History of Present Illness 61 year old male who presents with chronic pruritus for the last week and recently returned. He states the whole time he was stayed in the cabin room most of the. He states he just has not been feeling well and has been short of breath and coughing up green mucus. He states that he has been tested for Covid 3 times in the last 3 weeks level came back negative. Upon arrival patient was 80% on room air. He does not normally wear oxygen. He is placed on 3 L and is at 92%. He has a left arm fistula. He has not had dialysis yet. He does see Dr. Che for CKD. He has a history of CKD, COVID-19, gastric bypass, renal insufficiency, former smoker, sleep apnea for which she wears a CPAP at night. 11/05/2021 No acute events overnight. Patient seen examined bedside. Hemoglobin is 6.6 today. 1 unit PRBC transfusion pending. Not more short of breath than usual. Not requiring BiPAP at this time. Saturating 92% on 2 L nasal cannula. Patient's chart, labs, images were reviewed and discussed with RN 11/06/2021 No acute events overnight. Patient seen examined bedside. Not more short of breath than usual. Saturating 98% on 5 L nasal cannula. Uses BiPAP at night. Plan for tunneled HD catheter today. While waiting for aVF to mature. Dialysis tomorrow. Patient's chart, labs, images were reviewed and discussed with RN 11/07/2021 No acute events overnight. Patient seen examined bedside. Chest pain-free however echocardiogram did show wall abnormalities. Left heart cath today. Will also start on hemodialysis during this hospital stay. Patient's chart, la bs, images were reviewed and discussed with RN Vitals/I&O Vitals/I&O: Vital Signs Date Time Temp Pulse Resp B/P (MAP) Pulse Ox O2 Delivery O2 Flow Rate FiO2 11/07/21 11:36 80 18 94 Nasal Cannula 6.0 11/07/21 07:30 97.7 119/47 (71) 97.7 I & O 11/06/21 11/06/21 11/07/21 15:00 23:00 07:00 Intake Total 0 ml 400 ml 400 ml Balance 0 ml 400 ml 400 ml Physical Exam General: Alert, Oriented X3, Cooperative Heart: Regular rate, Normal S1, Normal S2, No murmurs, Gallops Abdomen: Normal bowel sounds, Soft, No tenderness, No hepatosplenomegaly, No masses Extremities: No clubbing, Other (1+ pitting edema) Skin: No rashes Labs Labs: Laboratory Tests Test 11/07/21 03:00 11/07/21 07:00 White Blood Count 13.2 x10^3/uL (4.0-11.0) Red Blood Count 3.25 x10^6/uL (4.30-5.70) Hemoglobin 8.6 g/dL (13.0-17.5) Hematocrit 26.8 % (39.0-53.0) Mean Corpuscular Volume 83 fL (79-100) Mean Corpuscular Hemoglobin 27 pg (25-35) Mean Corpuscular Hemoglobin Concent 32 g/dL (31-37) Red Cell Distribution Width 15.1 % (11.5-14.5) Platelet Count 340 x10^3/uL (140-400) Neutrophils (%) (Auto) 89 % (31-73) Lymphocytes (%) (Auto) 3 % (24-48) Monocytes (%) (Auto) 8 % (0-9) Eosinophils (%) (Auto) 0 % (0-3) Basophils (%) (Auto) 0 % (0-3) Neutrophils # (Auto) 11.8 x10^3/uL (1.8-7.7) Lymphocytes # (Auto) 0.3 x10^3/uL (1.0-4.8) Monocytes # (Auto) 1.1 x10^3/uL (0.0-1.1) Eosinophils # (Auto) 0.0 x10^3/uL (0.0-0.7) Basophils # (Auto) 0.0 x10^3/uL (0.0-0.2) Sodium Level 140 mmol/L (136-145) Potassium Level 3.7 mmol/L (3.5-5.1) Chloride Level 105 mmol/L (98-107) Carbon Dioxide Level 22 mmol/L (21-32) Anion Gap 13 (6-14) Blood Urea Nitrogen 56 mg/dL (8-26) Creatinine 2.9 mg/dL (0.7-1.3) Estimated GFR (Cockcroft-Gault) 22.3 Glucose Level 120 mg/dL (70-99) Calcium Level 7.5 mg/dL (8.5-10.1) Magnesium Level 2.1 mg/dL (1.8-2.4) Hepatitis B Surface Antibody Nonreactive Urine Collection Type Unknown Urine Color Yellow Urine Clarity Clear Urine pH 5.5 (<5.0-8.0) Urine Specific [place] 1.015 (1.000-1.030) Urine Protein >=300 mg/dL (NEG-TRACE) Urine Glucose (UA) 100 mg/dL (NEG) Urine Ketones (Stick) Trace mg/dL (NEG) Urine Blood Negative (NEG) Urine Nitrite Negative (NEG) Urine Bilirubin Negative (NEG) Urine Urobilinogen Dipstick 0.2 mg/dL (0.2 mg/dL) Urine Leukocyte Esterase Negative (NEG) Urine RBC 0 /HPF (0-2) Urine WBC 1-4 /HPF (0-4) Urine Squamous Epithelial Cells Occ /LPF Urine Amorphous Sediment Present /HPF Urine Bacteria Few /HPF (0-FEW) Urine Hyaline Casts Occasional /HPF Assessment and Plan Assessmemt and Plan Problems Medical Problems: (1) Elevated troponin Status: Acute (2) Hypoxia Status: Acute (3) Person under investigation for COVID-19 Status: Acute (4) Pneumonia Status: Acute Comment Review of Relevant I have reviewed the following items swathi (where applicable) has been applied. Medications: Current Medications Medications (Trade) Dose Ordered Sig/Catherine Route PRN Reason Start Time Stop Time Status Last Admin Dose Admin Heparin Sodium/ Sodium Chloride (HEPARIN for ARTERIAL LINE FLUSH) 1,000 unit 1X ONCE IART 11/07/21 11:15 11/07/21 11:18 DC 11/07/21 11:32 Midazolam HCl (Versed) 5 mg 1X ONCE IV 11/07/21 11:15 11/07/21 11:18 DC 11/07/21 11:34 Fentanyl Citrate (Fentanyl 2ml Vial) 100 mcg 1X ONCE IV 11/07/21 11:15 11/07/21 11:18 DC 11/07/21 11:34 Iohexol (Omnipaque 300 Mg/ml) 100 ml 1X ONCE IART 11/07/21 11:15 11/07/21 11:18 DC 11/07/21 11:33 Lidocaine HCl (Lidocaine 1% 20ml Vial) 20 ml 1X ONCE INJ 11/07/21 11:15 11/07/21 11:18 DC 11/07/21 11:33 Diphenhydramine HCl (Benadryl) 50 mg 1X ONCE IVP 11/07/21 12:00 11/07/21 12:01 DC 11/07/21 11:59 Justifications for Admission Other Justification Hypoxic respiratory failure YARIEL WEN MD Nov 07, 2021 14:26
--- NOTE | 2021-11-07 17:15 | NUR ---
Wound Care Wound Type/Assessment: Consult to eval and treat DFU to bilateral plantar feet. R midfoot is callused with evidence of dry blood in a central crease, but not currently open. Charcot abnormality on this foot. L plantar first met. head is callused with a small opening, too small to assess for undermining. Depth of 0.5cm likely reflects thickness of callus, wound base appears pale pink but is not easily visualized. R medial heel has some ecchymosis that is more consistent with edema and vascular changes than pressure. No other wounds noted on head to toe assessment. Treatment Recommendations/Plan: L plantar met. head: xeroform and foam dressing. Orders subject to change following debridement by Dr. Larose Education provided: Turning to prevent pressure sores Offloading surface/device: Pt is able to self turn Recommended Referrals/Tests: Dr. Larose for bedside debridement Discharge Recommendations for dressings: as above
[2021-11-07] MEDS: PANTOPRAZOLE 40 MG TABLET.DR. PO SCH (17:36)
[2021-11-07] MEDS: DOXAZOSIN MESYLATE 4 MG TABLET. PO SCH (17:37)
[2021-11-07] MEDS: LOSARTAN POTASSIUM 50 MG TABLET. PO SCH (17:37)
[2021-11-07] MEDS: FUROSEMIDE 80 MG TABLET. PO SCH (17:38)
[2021-11-07] MEDS: ATORVASTATIN CALCIUM 40 MG TABLET. PO SCH (17:38)
[2021-11-07] MEDS: CALCITRIOL 0.25 MCG CAPSULE. PO SCH (17:39)
[2021-11-07] MEDS: CYANOCOBALAMIN (VITAMIN B-12) 1,000 MCG TABLET. PO SCH (17:39)
--- NOTE | 2021-11-07 18:17 | CARD ---
MR#: [id number] Date of Study: 11/07/2021 Ordering Physician: DAVID SHEIKH, Referring Physician: DAVID SHEIKH, Tech: RT Anmol(R) APPROVED REPORT Technologist: RT Anmol(R) Nurse: Rebecca Mae RN Procedure(s) performed: Left heart catheterization and selective coronary angiography HEART FAILURE CLASS 4 FL TIME: 2.9 MIN DOSE: 59 GYCM2 CONTRAST: 85 ML MODERATE SEDATION: 39 MINUTES INDICATION The indication(s) include : non-STEMI . [facility] Clinical Frailty Scale [facility] Clinical Frailty Scale: Moderately Frail Heart Failure Heart Failure: Yes If Yes, Newly Diagnosed: No If Yes, HF Type: Diastolic CASE TECHNIQUE IV conscious sedation was used throughout procedure with appropriate monitoring and was performed in the presence of a registered nurse who was an independent trained observer other than the physician p erforming the procedure. During this case, Fluoroscopy and low osmolar contrast were used for imaging . Specimen(s) Removed: 15 PROCEDURE NARRATIVE After explaining the risk, benefits and alternative options, informed consent was obtained from patie nt. Patient was brought to the cardiac Tank Storage Supervisor and his right groin was prepped and draped in the us ual fashion. 20 cc of 2% lidocaine was infiltrated into the skin and subcutaneous tissues for local anesthesia. Arterial access was obtained in the right common femoral artery and a 6 [place] sheath wa s inserted. 6 [place] JL4 and 6 [place] JR4 catheters were used to perform selective angiography of th e left and right coronary arteries. LVEDP and transaortic gradients were measured. Left ventriculog hang was not performed since recent 2D echo showed LVEF 30%. Patient tolerated the procedure well. Hemostasis was achieved using Angio-Seal. There were no immediate complications. FINDINGS 1. Hemodynamics: Left ventricular end-diastolic pressure 15 mmHg. No pullback gradient across aorti c valve. 2. Coronary angiography a. The left main coronary artery arose from the left sinus of Valsalva, gave rise to the left anteri or descending and left circumflex arteries and did not show any significant stenosis. b. The left anterior descending artery showed 50% stenosis in the proximal segment and a long 80% ca lcified stenosis in the mid segment. The diagonal branch showed 80% stenosis in the proximal to mid segment. c. The left circumflex artery was a large and dominant vessel that showed a calcified 90% stenosis i n the proximal segment. d. The right coronary artery arose was a small and nondominant vessel arising from the right sinus o f Valsalva that showed 60% stenosis in the mid segment. Conclusion Severe three-vessel coronary artery disease Recommendations Cardiothoracic surgery consultation for possible coronary artery bypass surgery. If he is deemed a p oor surgical candidate, consider viability study for LAD territory and possibly percutaneous revascul arization with hemodynamic support from Impella percutaneous ventricular assist device. Signed by : David Sheikh, Electronically Approved : 11/07/2021 18:17:19
[2021-11-07 19:50] VITALS: BP 127/60
[2021-11-07] MEDS: cefTRIAXone IV Push 1 GM VIAL. IVP SCH (22:24)
[2021-11-07] MEDS: diphenhydrAMINE HCL 25 MG CAPSULE PO PRN (22:25)
[2021-11-07] MEDS: LORazepam 0.5 MG TABLET PO PRN (22:27)
[2021-11-07] MEDS: AZITHROMYCIN 500 MG in IV NORMAL SALINE 250ML 250 ML IV SCH (22:28)
[2021-11-07 23:15] VITALS: BP 111/44
[2021-11-08 03:45] VITALS: BP 125/49
[2021-11-08] MEDS: LEVOTHYROXINE 100 MCG TABLET PO SCH (06:00)
[2021-11-08 07:00] VITALS: BP 137/52
[2021-11-08] MEDS: FUROSEMIDE 80 MG TABLET. PO SCH (09:31)
[2021-11-08] MEDS: LACTOBACILLUS RHAMNOSUS GG 1 CAPSULE. PO SCH ×2 (09:31→22:41)
[2021-11-08] MEDS: CYANOCOBALAMIN (VITAMIN B-12) 1,000 MCG TABLET. PO SCH (09:32)
[2021-11-08] MEDS: PANTOPRAZOLE 40 MG TABLET.DR. PO SCH (09:32)
[2021-11-08] MEDS: CARVEDILOL 6.25 MG TABLET. PO SCH ×2 (09:32→17:00)
[2021-11-08] MEDS: DOXAZOSIN MESYLATE 4 MG TABLET. PO SCH (09:33)
[2021-11-08] MEDS: ATORVASTATIN CALCIUM 40 MG TABLET. PO SCH (09:33)
[2021-11-08] MEDS: LOSARTAN POTASSIUM 50 MG TABLET. PO SCH (09:33)
[2021-11-08] MEDS: CALCITRIOL 0.25 MCG CAPSULE. PO SCH (09:34)
[2021-11-08] MEDS: SODIUM BICARBONATE 650 MG TABLET. PO SCH ×3 (09:34→22:41)
[2021-11-08] MEDS: HEPARIN for SUB-Q USE 5,000 UNIT/ML VIAL. SQ SCH ×2 (09:39→22:43)
--- NOTE | 2021-11-08 10:25 | PDOC ---
DATE OF SERVICE DATE: 11/08/21 TIME: 10:24 SUBJECTIVE ROS s/p Cardiac cath on 11/07 States feels better , still gets short of breath even walking to the bathroom . Not on O2 at home , uses CPAP for DARRELL Reports UOP declined , no significant RRF . OBJECTIVE Vital Signs Vital Signs Date Time Temp Pulse Resp B/P (MAP) Pulse Ox O2 Delivery O2 Flow Rate FiO2 11/08/21 09:33 75 137/52 11/08/21 07:00 98.3 18 100 BiPAP/CPAP 98.3 11/07/21 23:15 4.0 I & 0 Intake and Output 11/08/21 07:00 Intake Total 1100 ml Balance 1100 ml Intake Oral 1100 ml PHYSICAL EXAM Physical Exam general NAD, HEEN has Bipap Neck supple Lungs decreased at bases Heart: Regular rate, Normal S1, Normal S2, No murmurs, Gallops Abdomen: Normal bowel sounds, Soft, No tenderness, No hepatosplenomegaly, No masses Neuro Grossly normal Psych/Mental Status: Mental status NL, Mood NL no richardson Derm No Rash DIAGNOSIS/ASSESSMENT Assessment & Plan New Onset ESRD followed by Dr. Che Initiated on HD via [facility] on 11/06/21 , 2 ND TREATMENT ON 11/07 Currently no emergent indication for dialysis today , Schedule for Tomorrow- TTS schedule while in patient . SW for OP chair time- Patient will prefer [facility] on 11/06/21 . e has AV fistula placed- has been [address] Ramirez . Not mature.Has fu appt with Dr Ramirez Saturday of this week . Acute hypoxic respiratory stable , On O2 by PA , new- No Oxygen at home Bilateral pneumonia, possible gram-negative organisms Metabolic acidosis- Resolved after 1 st dialysis on 11/06 Anemia - required 1 unit PRBC transfusion. Hgb stable Acute on chronic combined systolic and diastolic heart failure compensated. 2D echo showed LVEF 30% with severe hypokinesis of mid to distal anterior and anteroseptal patterson Non-STEMI - s/p Cardiac cath on 11/07/21- Severe three-vessel coronary artery disease; Per Cardiology Cardiothoracic surgery consultation for possible coronary artery bypass surgery. If he is deemed a poor surgical candidate, consider viability study for LAD territory and possibly percutaneous revascularization with hemodynamic support from Impella percutaneous ventricular assist device.. Patient states he prefers to go to [facility] for CTS Consultation History of DARRELL compliant with CPAP History of gastric bypass History of diabetes mellitus type 2, diet controlled COMMENT/RELEVANT DATA Meds Current Medications Medications (Trade) Dose Ordered Sig/Catherine Start Time Stop Time Status Last Admin Dose Admin Acetaminophen (Tylenol) 650 mg PRN Q6HRS PRN 11/05/21 10:00 Albuterol/ Ipratropium (Duoneb) 6 ml 1X ONCE 11/03/21 19:00 11/03/21 19:01 DC 11/03/21 19:24 6 ML Amlodipine Besylate (Norvasc) 10 mg DAILY 11/04/21 10:00 11/08/21 09:31 10 MG Atorvastatin Calcium (Lipitor) 40 mg DAILY 11/04/21 10:00 11/08/21 09:33 40 MG Azithromycin 500 mg/Sodium Chloride 250 ml @ 250 mls/hr Q24H 11/04/21 21:00 11/07/21 21:59 DC 11/07/21 22:28 250 MLS/HR Calcitriol (Rocaltrol) 0.5 mcg DAILY 11/04/21 10:00 11/08/21 09:34 0.5 MCG Carvedilol (Coreg) 6.25 mg BIDWMEALS 11/04/21 10:00 11/08/21 09:32 6.25 MG Cefazolin Sodium/ Dextrose 50 ml @ 100 mls/hr 1X ONCE 11/06/21 13:00 11/06/21 13:29 DC 11/06/21 13:11 100 MLS/HR Ceftriaxone Sodium (Rocephin) 1 gm Q24H 11/04/21 21:00 11/07/21 22:24 1 GM Cyanocobalamin (Vitamin B-12) 500 mcg DAILY 11/04/21 10:00 11/08/21 09:32 500 MCG Dextrose (Dextrose 50%-Water Syringe) 12.5 gm PRN Q15MIN PRN 11/04/21 09:45 Diphenhydramine HCl (Benadryl) 50 mg 1X ONCE 11/07/21 12:00 11/07/21 12:01 DC 11/07/21 11:59 50 MG Docusate Sodium (Colace) 100 mg PRN DAILY PRN 11/04/21 09:45 Doxazosin Mesylate (Cardura) 2 mg DAILY 11/04/21 10:00 11/08/21 09:33 2 MG Epoetin Aris-epbx (RETACRIT for NON-DIALYSIS PTS) 10,000 unit 1X ONCE 11/04/21 16:00 11/04/21 16:01 DC 11/04/21 16:21 10,000 UNIT Fentanyl Citrate (Fentanyl 2ml Vial) 100 mcg 1X ONCE 11/07/21 11:15 11/07/21 11:18 DC 11/07/21 11:34 75 MCG Furosemide (Lasix) 80 mg 1X ONCE 11/05/21 20:00 11/05/21 20:01 DC 11/05/21 19:24 80 MG Heparin Sodium (Porcine) (Heparin Sodium) 10,000 unit STK-MED ONCE 11/07/21 10:58 11/07/21 10:59 DC Heparin Sodium/ Sodium Chloride (HEPARIN for ARTERIAL LINE FLUSH) 1,000 unit 1X ONCE 11/07/21 11:15 11/07/21 11:18 DC 11/07/21 11:32 1,000 UNIT Hydralazine HCl (Apresoline) 100 mg TID 11/04/21 10:00 11/08/21 09:33 100 MG Info (CONTRAST GIVEN -- Rx MONITORING) 1 each PRN DAILY PRN 11/07/21 11:30 11/09/21 11:29 Info (PHARMACY MONITORING -- do not chart) 1 each PRN DAILY PRN 11/07/21 08:15 Iohexol (Omnipaque 300 Mg/ml) 100 ml 1X ONCE 11/07/21 11:15 11/07/21 11:18 DC 11/07/21 11:33 85 ML Lactobacillus Rhamnosus (Culturelle) 1 cap BID 11/04/21 21:00 11/08/21 09:31 1 CAP Levothyroxine Sodium (Synthroid) 200 mcg DAILY06 11/04/21 10:00 11/08/21 06:00 200 MCG Lidocaine HCl (Lidocaine 1% 20ml Vial) 20 ml 1X ONCE 11/07/21 11:15 11/07/21 11:18 DC 11/07/21 11:33 30 ML Lidocaine/ Epinephrine (LIDOCAINE 1%-EPI 1:100,000 Multi-Dose) 15 ml 1X ONCE 11/06/21 13:00 11/06/21 13:02 DC 11/06/21 13:11 15 ML Lorazepam (Ativan Inj) 0.25 mg PRN Q4HRS PRN 11/04/21 09:45 Lorazepam (Ativan) 0.5 mg PRN Q6HRS PRN 11/04/21 09:45 11/07/21 22:27 0.5 MG Losartan Potassium (Cozaar) 100 mg DAILY 11/04/21 10:00 11/08/21 09:33 100 MG Methylprednisolone Sodium Succinate (SOLU-Medrol 125MG VIAL) 125 mg 1X ONCE 11/03/21 19:00 11/03/21 19:01 DC 11/03/21 19:19 125 MG Midazolam HCl (Versed) 5 mg 1X ONCE 11/07/21 11:15 11/07/21 11:18 DC 11/07/21 11:34 5 MG Nitroglycerin (Nitroglycerin) 200 mcg STK-MED ONCE 11/07/21 10:58 11/07/21 10:59 DC Ondansetron HCl (Zofran) 4 mg PRN Q6HRS PRN 11/04/21 09:45 Pantoprazole Sodium (Protonix) 40 mg DAILYAC 11/04/21 10:00 11/08/21 09:32 40 MG Prochlorperazine Edisylate (Compazine) 10 mg PRN Q6HRS PRN 11/04/21 09:45 Sennosides (Senna) 17.2 mg PRN BID PRN 11/04/21 09:45 Sodium Bicarbonate (Sodium Bicarbonate) 1,300 mg TID 11/04/21 15:00 11/08/21 09:34 1,300 MG Sodium Bicarbonate (Sodium Bicarb Adult 8.4% Syr) 50 meq STK-MED ONCE 11/05/21 07:44 11/05/21 07:45 DC Sodium Chloride (Normal Saline Flush) 3 ml QSHIFT PRN 11/07/21 12:15 Verapamil HCl (Verapamil) 5 mg STK-MED ONCE 11/07/21 10:58 11/07/21 10:59 DC Zolpidem Tartrate (Ambien) 2.5 mg PRN QHS PRN 11/04/21 09:45 Results All relevant outside records, renal labs, imaging studies, telemetry/EKG's were reviewed. Justicifation of Admission Dx: Justifications for Admission: Justification of Admission Dx: Yes ANGÉLICA FOSTER MD Nov 08, 2021 10:25
--- NOTE | 2021-11-08 10:46 | PDOC ---
AUGUSTINE MACIAS CAGE SUPERVISOR 11/08/21 1046: CARDIO Progress Notes Date and Time Date of Service 11/08/21 Time of Evaluation 1045 Subjective Subjective: No Chest Pain, No shortness of breath, No Palpitations Vitals Vitals Vital Signs Date Time Temp Pulse Resp B/P (MAP) Pulse Ox O2 Delivery O2 Flow Rate FiO2 11/08/21 09:33 75 137/52 11/08/21 08:00 Bi-pap 11/08/21 07:00 98.3 18 100 98.3 11/07/21 23:15 4.0 Weight Weight [ ] Input and Output Intake and Output Intake and Output 11/08/21 07:00 Intake Total 1100 ml Balance 1100 ml Intake Oral 1100 ml Microbiology Micro Microbiology 11/03/21 Respiratory Culture Gram Stain - Final, Complete 11/03/21 Blood Culture - Final, Complete Staphylococcus Epidermidis Physical Exam HEENT: Neck Supple W Full Motion Chest: Symmetric LUNGS: Other (diminished bases) Heart: RRR Abdomen: Soft N/T Extremities: Other (1+ bilateral LE edema ) Neurology: alert, oriented, follow commands Assessment Assessment 1. Acute hypoxic respiratory failure secondary to combination of bilateral pneumonia and acute on chronic systolic CHF 2. Acute on chronic systolic heart failure: Fluid offloading via HD. 3. Ischemic cardiomyopathy; Echo with LVEF 30% 4. CAD; [facility] with severe three-vessel coronary artery disease. 5. End-stage renal disease, hyperkalemia: Patient has AV fistula placed in the recent past. HD initiated 6. Hypertension: Controlled 7. Hypothyroidism: Continue levothyroxine 8. Hyperlipidemia: Continue statin therapy 9. Anemia; s/p transfusion Recommendations Secondary prevention Continue high-dose statin. Add ASA therapy Discussed option of high risk PCI versus CABG, including risks versus benefits Patient and family leaning towards CABG. Requesting [facility] system. Will have office send referral on an outpatient basis as no critical lesions were noted. Continue current HF optimization Fluid offloading via HD Supportive care Justicifation of Admission Dx: Justifications for Admission: Justification of Admission Dx: Yes DAVID COFFMAN MD 11/08/212122: CARDIO Progress Notes Assessment Assessment Patient seen and examined 11/06/2021. Agree with REPLACER's assessment and plan. Acute on chronic combined systolic and diastolic heart failure better compensated after fluid removal with hemodialysis 2D echo showed LVEF 30% with severe hypokinesis of mid to distal anterior and anteroseptal patterson Non-STEMI cath yesterday showed severe 3 v CAD. We will refer patient for CT surgical consultation If he is deemed a poor candidate for surgical revascularization, we will consider higth risk PCI to LCX and LAD AUGUSTINE MACIAS APRN Nov 08, 2021 10:46 DAVID COFFMAN MD Nov 08, 2021 21:23
[2021-11-08 11:00] VITALS: BP 112/47
--- NOTE | 2021-11-08 12:54 | NUR ---
SS following up with discharge planning. SS reviewed pt chart and discussed with pt RN. Pt is currently requiring oxygen at five liters nasal canula. COVID19 negative. Pt had heart cath on 11/07/2021. Trip vessel disease. Non-emergent per cardiology. Pt does not require transfer at this time. Pt has no home oxygen. PT/OT ordered. Six minute walk needed prior to discharge. SS received phone call from [facility] stating that pt has confirmed chair time at [facility], ; fax [phone], Saturday, Saturday, and Saturday at 0600. Pt first chair time scheduled for 11/13/2021 and pt to arrive at 0530 on first day. Physician and RN notified. Ss will continue to follow for discharge planning.
--- NOTE | 2021-11-08 14:56 | PDOC ---
[employer] PROGRESS NOTE Date of Service DOS: DATE: 11/08/21 TIME: 14:56 Chief Complaint Chief Complaint Assessment/Plan Acute on chronic CHF with systolic LV EF of 30% and diastolic grade 2 pseudonormal filling dynamics. Acute hypoxic respiratory failure requiring BiPAP support Bilateral pneumonia, possible gram-negative organisms Acute electrolyte derangement consistent with CKD Anemia of CKD requiring 1 unit PRBC transfusion Metabolic acidosis History of DARRELL compliant with CPAP History of gastric bypass History of diabetes mellitus type 2, diet controlled History of CKD stage IV not on hemodialysis but has AV fistula in left upper extremity's tunneled catheter in place and started on hemodialysis. Pending [facility] today Cardiology consulted for elevated troponins Nephrology consult Continue empiric IV antibiotics IV diuresis as needed Strict I's/O Avoid nephrotoxic agents Continue with home CPAP for DARRELL Heparin for DVT prophylaxis Protonix GI prophylaxis ADA diet CODE STATUS full Discussed with RN and SW Disposition inpatient management as above DPOA: A total of 45 minutes of critical care time was spent in reviewing chart, labs, and images. Discussed with RN and SW History of Present Illness History of Present Illness 61 year old male who presents with chronic pruritus for the last week and recently returned. He states the whole time he was stayed in the cabin room most of the. He states he just has not been feeling well and has been short of breath and coughing up green mucus. He states that he has been tested for Covid 3 times in the last 3 weeks level came back negative. Upon arrival patient was 80% on room air. He does not normally wear oxygen. He is placed on 3 L and is at 92%. He has a left arm fistula. He has not had dialysis yet. He does see Dr. Che for CKD. He has a history of CKD, COVID-19, gastric bypass, renal insufficiency, former smoker, sleep apnea for which she wears a CPAP at night. 11/05/2021 No acute events overnight. Patient seen examined bedside. Hemoglobin is 6.6 today. 1 unit PRBC transfusion pending. Not more short of breath than usual. Not requiring BiPAP at this time. Saturating 92% on 2 L nasal cannula. Patient's chart, labs, images were reviewed and discussed with RN 11/06/2021 No acute events overnight. Patient seen examined bedside. Not more short of breath than usual. Saturating 98% on 5 L nasal cannula. Uses BiPAP at night. Plan for tunneled HD catheter today. While waiting for aVF to mature. Dialysis tomorrow. Patient's chart, labs, images were reviewed and discussed with RN 11/07/2021 No acute events overnight. Patient seen examined bedside. Chest pain-free however echocardiogram did show wall abnormalities. Left heart cath today. Will also start on hemodialysis during this hospital stay. Patient's chart, la bs, images were reviewed and discussed with RN Vitals/I&O Vitals/I&O: Vital Signs Date Time Temp Pulse Resp B/P (MAP) Pulse Ox O2 Delivery O2 Flow Rate FiO2 11/08/21 14:00 74 112/47 11/08/21 11:00 97.6 18 92 BiPAP/CPAP 97.6 11/07/21 23:15 4.0 I & O 11/07/21 11/07/21 11/08/21 15:00 23:00 07:00 Intake Total 300 ml 400 ml 400 ml Balance 300 ml 400 ml 400 ml Physical Exam General: Alert, Oriented X3, Cooperative Heart: Regular rate, Normal S1, Normal S2, No murmurs, Gallops Abdomen: Normal bowel sounds, Soft, No tenderness, No hepatosplenomegaly, No masses Extremities: No clubbing, Other (1+ pitting edema) Skin: No rashes Assessment and Plan Assessmemt and Plan Problems Medical Problems: (1) Elevated troponin Status: Acute (2) Hypoxia Status: Acute (3) Person under investigation for COVID-19 Status: Acute (4) Pneumonia Status: Acute Comment Review of Relevant I have reviewed the following items swathi (where applicable) has been applied. Justifications for Admission Other Justification Hypoxic respiratory failure NIEVES VIVEROS MD Nov 08, 2021 14:56
[2021-11-08 15:00] VITALS: BP 115/48
[2021-11-08] MEDS: ASPIRIN ENTERIC COATED 81 MG TABLET.DR. PO SCH (17:00)
[2021-11-08 19:25] VITALS: BP 113/49
[2021-11-08] MEDS: cefTRIAXone IV Push 1 GM VIAL. IVP SCH (22:42)
[2021-11-08] MEDS: LORazepam 0.5 MG TABLET PO PRN (22:43)
[2021-11-08] MEDS: diphenhydrAMINE HCL 25 MG CAPSULE PO PRN (22:43)
[2021-11-08 23:05] VITALS: BP 106/45
[2021-11-09 03:12] VITALS: BP 124/48
[2021-11-09] MEDS: LEVOTHYROXINE 100 MCG TABLET PO SCH (06:25)
[2021-11-09 07:00] VITALS: BP 137/60
[2021-11-09 07:07] LABS: CALCIUM 7.3 mg/dL (8.5-10.1); CREATININE 3.3 mg/dL (0.7-1.3); GFR 19.2; POTASSIUM 3.6 mmol/L (3.5-5.1)
[2021-11-09 08:37] LABS: MAGNESIUM 2.1 mg/dL (1.8-2.4); PHOSPHORUS 3.9 mg/dL (2.6-4.7)
[2021-11-09] MEDS: ATORVASTATIN CALCIUM 40 MG TABLET. PO SCH (10:04)
[2021-11-09] MEDS: DOXAZOSIN MESYLATE 4 MG TABLET. PO SCH (10:05)
[2021-11-09] MEDS: LACTOBACILLUS RHAMNOSUS GG 1 CAPSULE. PO SCH ×2 (10:06→20:52)
[2021-11-09] MEDS: LOSARTAN POTASSIUM 50 MG TABLET. PO SCH (10:06)
[2021-11-09] MEDS: ASPIRIN ENTERIC COATED 81 MG TABLET.DR. PO SCH (10:07)
[2021-11-09] MEDS: CALCITRIOL 0.25 MCG CAPSULE. PO SCH (10:07)
[2021-11-09] MEDS: FUROSEMIDE 80 MG TABLET. PO SCH (10:07)
[2021-11-09] MEDS: SODIUM BICARBONATE 650 MG TABLET. PO SCH ×3 (10:08→20:53)
[2021-11-09] MEDS: CARVEDILOL 6.25 MG TABLET. PO SCH ×2 (10:09→16:53)
[2021-11-09] MEDS: PANTOPRAZOLE 40 MG TABLET.DR. PO SCH (10:09)
[2021-11-09] MEDS: CYANOCOBALAMIN (VITAMIN B-12) 1,000 MCG TABLET. PO SCH (10:11)
[2021-11-09] MEDS: HEPARIN for SUB-Q USE 5,000 UNIT/ML VIAL. SQ SCH ×2 (10:17→21:05)
[2021-11-09 11:00] VITALS: BP 111/46
--- NOTE | 2021-11-09 11:04 | PDOC ---
AUGUSTINE MACIAS ALUMINUM WELDER 11/09/21 1104: CARDIO Progress Notes Date and Time Date of Service 11/09/21 Time of Evaluation 1110 Subjective Subjective: No Chest Pain, No shortness of breath, No Palpitations Vitals Vitals Vital Signs Date Time Temp Pulse Resp B/P (MAP) Pulse Ox O2 Delivery O2 Flow Rate FiO2 11/09/21 10:10 79 137/60 11/09/21 09:10 97 Nasal Cannula 4.0 11/09/21 07:00 97.6 20 97.6 Weight Weight [ ] Input and Output Intake and Output Intake and Output 11/09/21 07:00 Intake Total 1060 ml Output Total 0 ml Balance 1060 ml Intake Oral 1060 ml Output Urine Total 0 ml Laboratory Labs Laboratory Tests Test 11/09/21 05:05 Sodium Level 144 mmol/L (136-145) Potassium Level 3.6 mmol/L (3.5-5.1) Chloride Level 106 mmol/L (98-107) Carbon Dioxide Level 28 mmol/L (21-32) Anion Gap 10 (6-14) Blood Urea Nitrogen 48 mg/dL (8-26) Creatinine 3.3 mg/dL (0.7-1.3) Estimated GFR (Cockcroft-Gault) 19.2 Glucose Level 105 mg/dL (70-99) Calcium Level 7.3 mg/dL (8.5-10.1) Phosphorus Level 3.9 mg/dL (2.6-4.7) Magnesium Level 2.1 mg/dL (1.8-2.4) Microbiology Micro Microbiology 11/03/21 Respiratory Culture Gram Stain - Final, Complete 11/03/21 Blood Culture - Final, Complete Staphylococcus Epidermidis Physical Exam HEENT: Neck Supple W Full Motion Chest: Symmetric LUNGS: Other (diminished bases) Heart: RRR Abdomen: Soft N/T Extremities: Other (1+ bilateral LE edema ) Neurology: alert, oriented, follow commands Assessment Assessment 1. Acute hypoxic respiratory failure secondary to combination of bilateral pneumonia and acute on chronic systolic CHF 2. Acute on chronic systolic heart failure: improved s/p fluid offloading 3. Ischemic cardiomyopathy; Echo with LVEF 30% 4. CAD; [facility] with severe three-vessel coronary artery disease. 5. End-stage renal disease, hyperkalemia: Patient has AV fistula placed in the recent past. HD initiated 6. Hypertension: Controlled 7. Hypothyroidism: Continue levothyroxine 8. Hyperlipidemia: Continue statin therapy 9. Anemia; s/p transfusion Recommendations Secondary prevention Continue high-dose statin, ASA therapy Outpatient CTS referral Continue current HF optimization Fluid offloading via HD Supportive care Justicifation of Admission Dx: Justifications for Admission: Justification of Admission Dx: Yes DAVID COFFMAN MD 11/09/21 3456: CARDIO Progress Notes Assessment Assessment Patient was seen and examined. Agree with MANAGER ORANGE's assessment and plan. Acute on chronic combined systolic and diastolic heart failure better compensated after fluid removal with hemodialysis 2D echo showed LVEF 30% with severe hypokinesis of mid to distal anterior and anteroseptal patterson Non-STEMI cardiac cath showed severe 3 v CAD and would benefit from CABG Patient would like to go to [facility] for CABG - cath films sent If he is deemed a poor candidate for surgical revascularization, we will consider higth risk PCI to LCX and LAD GILBERTOAUGUSTINE HOLLINS APRN Nov 09, 2021 11:04 DAVID COFFMAN MD Nov 09, 2021 18:36
--- NOTE | 2021-11-09 11:25 | PDOC ---
DATE OF SERVICE DATE: 11/09/21 TIME: 11:22 SUBJECTIVE ROS No new complaints/Concerns Unchanged MACHADO walking to the bathroom . Not on O2 at home , uses CPAP for DARRELL no significant RRF . OBJECTIVE Vital Signs Vital Signs Date Time Temp Pulse Resp B/P (MAP) Pulse Ox O2 Delivery O2 Flow Rate FiO2 11/09/21 11:00 96.7 76 19 111/46 (67) 96 Nasal Cannula 4.0 96.7 I & 0 Intake and Output 11/09/21 07:00 Intake Total 1060 ml Output Total 0 ml Balance 1060 ml Intake Oral 1060 ml Output Urine Total 0 ml PHYSICAL EXAM Physical Exam general NAD, HEEN has Bipap Neck supple Lungs decreased at bases Heart: Regular rate, Normal S1, Normal S2, No murmurs, Gallops Abdomen: Normal bowel sounds, Soft, No tenderness, No hepatosplenomegaly, No masses Neuro Grossly normal Psych/Mental Status: Mental status NL, Mood NL no richardson Derm No Rash DIAGNOSIS/ASSESSMENT Assessment & Plan New Onset ESRD followed by Dr. Che Initiated on HD via Tunn[facility] HD[facility] on 11/06/21 , 2 ND TREATMENT ON 11/07 OP chair time- at [facility] starting Saturday. Will schedule for dialysis for tomorrow prior to discharge. Access -Tunneled HDc on 11/06/21 . e has AV fistula placed- has been [address] Ramirez . Not mature.Has fu appt with Dr Ramirez Saturday of this week . Acute hypoxic respiratory stable , On O2 by [place] , new- No Oxygen at home Bilateral pneumonia, possible gram-negative organisms Metabolic acidosis- Resolved after 1 st dialysis on 11/06 Anemia - required 1 unit PRBC transfusion. Hgb stable Acute on chronic combined systolic and diastolic heart failure compensated. 2D echo showed LVEF 30% with severe hypokinesis of mid to distal anterior and anteroseptal patterson Non-STEMI - s/p Cardiac cath on 11/07/21- Severe three-vessel coronary artery disease; Per Cardiology Cardiothoracic surgery consultation for possible coronary artery bypass surgery. If he is deemed a poor surgical candidate, consider viability study for LAD territory and possibly percutaneous revascularization with hemodynamic support from Impella percutaneous ventricular assist device.. Patient requesting CTS consult to [facility] History of DARRELL compliant with CPAP History of gastric bypass History of diabetes mellitus type 2, diet controlled COMMENT/RELEVANT DATA Meds Current Medications Medications (Trade) Dose Ordered Sig/Catherine Start Time Stop Time Status Last Admin Dose Admin Acetaminophen (Tylenol) 650 mg PRN Q6HRS PRN 11/05/21 10:00 Albuterol/ Ipratropium (Duoneb) 6 ml 1X ONCE 11/03/21 19:00 11/03/21 19:01 DC 11/03/21 19:24 6 ML Amlodipine Besylate (Norvasc) 10 mg DAILY 11/04/21 10:00 11/09/21 10:10 10 MG Aspirin (Ecotrin) 81 mg DAILYWBKFT 11/08/21 17:00 11/09/21 10:07 81 MG Atorvastatin Calcium (Lipitor) 40 mg DAILY 11/04/21 10:00 11/09/21 10:04 40 MG Azithromycin 500 mg/Sodium Chloride 250 ml @ 250 mls/hr Q24H 11/04/21 21:00 11/07/21 21:59 DC 11/07/21 22:28 250 MLS/HR Calcitriol (Rocaltrol) 0.5 mcg DAILY 11/04/21 10:00 11/09/21 10:07 0.5 MCG Carvedilol (Coreg) 6.25 mg BIDWMEALS 11/04/21 10:00 11/09/21 10:09 6.25 MG Cefazolin Sodium/ Dextrose 50 ml @ 100 mls/hr 1X ONCE 11/06/21 13:00 11/06/21 13:29 DC 11/06/21 13:11 100 MLS/HR Ceftriaxone Sodium (Rocephin) 1 gm Q24H 11/04/21 21:00 11/08/21 22:42 1 GM Cyanocobalamin (Vitamin B-12) 500 mcg DAILY 11/04/21 10:00 11/09/21 10:11 500 MCG Dextrose (Dextrose 50%-Water Syringe) 12.5 gm PRN Q15MIN PRN 11/04/21 09:45 Diphenhydramine HCl (Benadryl) 50 mg 1X ONCE 11/07/21 12:00 11/07/21 12:01 DC 11/07/21 11:59 50 MG Docusate Sodium (Colace) 100 mg PRN DAILY PRN 11/04/21 09:45 Doxazosin Mesylate (Cardura) 2 mg DAILY 11/04/21 10:00 11/09/21 10:05 2 MG Epoetin Aris-epbx (RETACRIT for NON-DIALYSIS PTS) 10,000 unit 1X ONCE 11/04/21 16:00 11/04/21 16:01 DC 11/04/21 16:21 10,000 UNIT Fentanyl Citrate (Fentanyl 2ml Vial) 100 mcg 1X ONCE 11/07/21 11:15 11/07/21 11:18 DC 11/07/21 11:34 75 MCG Furosemide (Lasix) 80 mg 1X ONCE 11/05/21 20:00 11/05/21 20:01 DC 11/05/21 19:24 80 MG Heparin Sodium (Porcine) (Heparin Sodium) 10,000 unit STK-MED ONCE 11/07/21 10:58 11/07/21 10:59 DC Heparin Sodium/ Sodium Chloride (HEPARIN for ARTERIAL LINE FLUSH) 1,000 unit 1X ONCE 11/07/21 11:15 11/07/21 11:18 DC 11/07/21 11:32 1,000 UNIT Hydralazine HCl (Apresoline) 100 mg TID 11/04/21 10:00 11/09/21 10:09 100 MG Info (CONTRAST GIVEN -- Rx MONITORING) 1 each PRN DAILY PRN 11/07/21 11:30 11/09/21 11:29 Info (PHARMACY MONITORING -- do not chart) 1 each PRN DAILY PRN 11/07/21 08:15 Iohexol (Omnipaque 300 Mg/ml) 100 ml 1X ONCE 11/07/21 11:15 11/07/21 11:18 DC 11/07/21 11:33 85 ML Lactobacillus Rhamnosus (Culturelle) 1 cap BID 11/04/21 21:00 11/09/21 10:06 1 CAP Levothyroxine Sodium (Synthroid) 200 mcg DAILY06 11/04/21 10:00 11/09/21 06:25 200 MCG Lidocaine HCl (Lidocaine 1% 20ml Vial) 20 ml 1X ONCE 11/07/21 11:15 11/07/21 11:18 DC 11/07/21 11:33 30 ML Lidocaine/ Epinephrine (LIDOCAINE 1%-EPI 1:100,000 Multi-Dose) 15 ml 1X ONCE 11/06/21 13:00 11/06/21 13:02 DC 11/06/21 13:11 15 ML Lorazepam (Ativan Inj) 0.25 mg PRN Q4HRS PRN 11/04/21 09:45 Lorazepam (Ativan) 0.5 mg PRN Q6HRS PRN 11/04/21 09:45 11/08/21 22:43 0.5 MG Losartan Potassium (Cozaar) 100 mg DAILY 11/04/21 10:00 11/09/21 10:06 100 MG Methylprednisolone Sodium Succinate (SOLU-Medrol 125MG VIAL) 125 mg 1X ONCE 11/03/21 19:00 11/03/21 19:01 DC 11/03/21 19:19 125 MG Midazolam HCl (Versed) 5 mg 1X ONCE 11/07/21 11:15 11/07/21 11:18 DC 11/07/21 11:34 5 MG Nitroglycerin (Nitroglycerin) 200 mcg STK-MED ONCE 11/07/21 10:58 11/07/21 10:59 DC Ondansetron HCl (Zofran) 4 mg PRN Q6HRS PRN 11/04/21 09:45 Pantoprazole Sodium (Protonix) 40 mg DAILYAC 11/04/21 10:00 11/09/21 10:09 40 MG Prochlorperazine Edisylate (Compazine) 10 mg PRN Q6HRS PRN 11/04/21 09:45 Sennosides (Senna) 17.2 mg PRN BID PRN 11/04/21 09:45 Sodium Bicarbonate (Sodium Bicarbonate) 1,300 mg TID 11/04/21 15:00 11/09/21 10:08 1,300 MG Sodium Bicarbonate (Sodium Bicarb Adult 8.4% Syr) 50 meq STK-MED ONCE 11/05/21 07:44 11/05/21 07:45 DC Sodium Chloride (Normal Saline Flush) 3 ml QSHIFT PRN 11/07/21 12:15 Verapamil HCl (Verapamil) 5 mg STK-MED ONCE 11/07/21 10:58 11/07/21 10:59 DC Zolpidem Tartrate (Ambien) 2.5 mg PRN QHS PRN 11/04/21 09:45 Lab Laboratory Tests Test 2/24/22 05:05 Sodium Level 144 mmol/L (136-145) Potassium Level 3.6 mmol/L (3.5-5.1) Chloride Level 106 mmol/L (98-107) Carbon Dioxide Level 28 mmol/L (21-32) Anion Gap 10 (6-14) Blood Urea Nitrogen 48 mg/dL (8-26) Creatinine 3.3 mg/dL (0.7-1.3) Estimated GFR (Cockcroft-Gault) 19.2 Glucose Level 105 mg/dL (70-99) Calcium Level 7.3 mg/dL (8.5-10.1) Phosphorus Level 3.9 mg/dL (2.6-4.7) Magnesium Level 2.1 mg/dL (1.8-2.4) Results All relevant outside records, renal labs, imaging studies, telemetry/EKG's were reviewed. Justicifation of Admission Dx: Justifications for Admission: Justification of Admission Dx: Yes ANGÉLICA FOSTER MD Nov 09, 2021 11:25
[2021-11-09] MEDS ORDERED: DIALYSIS PATIENT. MC PRN ×2 (11:45)
[2021-11-09] MEDS ORDERED: IV NORMAL SALINE 1000ML BAG 1,000 ML IV PRN ×2 (11:45)
--- NOTE | 2021-11-09 12:48 | PDOC ---
[employer] PROGRESS NOTE Date of Service DOS: DATE: 11/09/21 TIME: 12:46 Chief Complaint Chief Complaint Acute on chronic CHF with systolic LV EF of 30% and diastolic grade 2 pseudonormal filling dynamics. Acute hypoxic respiratory failure requiring BiPAP support Bilateral pneumonia, possible gram-negative organisms now probable new ESRD, on HD Acute electrolyte derangement consistent with CKD Anemia of CKD requiring 1 unit PRBC transfusion Metabolic acidosis History of DARRELL compliant with CPAP History of gastric bypass History of diabetes mellitus type 2, diet controlled History of CKD stage IV now on hemodialysis has AV fistula in left upper extremity History of Present Illness History of Present Illness 61 year old male who presents with chronic pruritus for the last week and recently returned. He states the whole time he was stayed in the cabin room most of the. He states he just has not been feeling well and has been short of breath and coughing up green mucus. He states that he has been tested for Covid 3 times in the last 3 weeks level came back negative. Upon arrival patient was 80% on room air. He does not normally wear oxygen. He is placed on 3 L and is at 92%. He has a left arm fistula. He has not had dialysis yet. He does see Jourdan Che for CKD. He has a history of CKD, COVID-19, gastric bypass, renal insufficiency, former smoker, sleep apnea for which she wears a CPAP at night. 11/05/2021 No acute events overnight. Patient seen examined bedside. Hemoglobin is 6.6 today. 1 unit PRBC transfusion pending. Not more short of breath than usual. Not requiring BiPAP at this time. Saturating 92% on 2 L nasal cannula. Patient's chart, labs, images were reviewed and discussed with PEARL white. Patient seen examined bedside. Chest pain-free however echocardiogram did show wall abnormalities. Left heart cath was done. and on hemodialysis during this hospital stay. Patient's chart, labs, images were reviewed and discussed with RN 11/09, plan HD in [facility], has ana time for HD on saturday next week, 6 min walk today, try to wean hypoxia Vitals/I&O Vitals/I&O: Vital Signs Date Time Temp Pulse Resp B/P (MAP) Pulse Ox O2 Delivery O2 Flow Rate FiO2 11/09/21 11:00 96.7 76 19 111/46 (67) 96 Nasal Cannula 4.0 96.7 I & O 2/23/22 2/23/22 2/24/22 14:59 22:59 06:59 Intake Total 600 ml 360 ml 100 ml Output Total 0 ml Balance 600 ml 360 ml 100 ml Physical Exam General: Alert, Oriented X3, Cooperative Heart: Regular rate, Normal S1, Normal S2, No murmurs, Gallops Abdomen: Normal bowel sounds, Soft, No tenderness, No hepatosplenomegaly, No masses Extremities: No clubbing, Other (1+ pitting edema) Skin: No rashes Labs Labs: Laboratory Tests Test 11/09/21 05:05 Sodium Level 144 mmol/L (136-145) Potassium Level 3.6 mmol/L (3.5-5.1) Chloride Level 106 mmol/L (98-107) Carbon Dioxide Level 28 mmol/L (21-32) Anion Gap 10 (6-14) Blood Urea Nitrogen 48 mg/dL (8-26) Creatinine 3.3 mg/dL (0.7-1.3) Estimated GFR (Cockcroft-Gault) 19.2 Glucose Level 105 mg/dL (70-99) Calcium Level 7.3 mg/dL (8.5-10.1) Phosphorus Level 3.9 mg/dL (2.6-4.7) Magnesium Level 2.1 mg/dL (1.8-2.4) Assessment and Plan Assessmemt and Plan Problems Medical Problems: (1) Elevated troponin Status: Acute (2) Hypoxia Status: Acute (3) Person under investigation for COVID-19 Status: Acute (4) Pneumonia Status: Acute Comment Review of Relevant I have reviewed the following items swathi (where applicable) has been applied. Medications: Current Medications Medications (Trade) Dose Ordered Sig/Catherine Route PRN Reason Start Time Stop Time Status Last Admin Dose Admin Aspirin (Ecotrin) 81 mg DAILYWBKFT PO 11/08/21 17:00 11/09/21 10:07 Justifications for Admission Other Justification Hypoxic respiratory failure NIEVES VIVEROS MD Nov 09, 2021 12:48
--- NOTE | 2021-11-09 13:34 | NUR ---
SS following up with discharge planning. SS reviewed pt chart and discussed with pt RN. Pt is currently requiring oxygen at four liters nasal canula. COVID19 negative. Pt had heart cath on 11/07/2021. Trip vessel disease. Non-emergent per cardiology. Pt does not require transfer at this time. Pt has no home oxygen. PT/OT ordered. OT recommended home. Six minute walk ordered. Pt has confirmed outpatient hemodialysis chair time at [facility], ; fax [phone], Saturday, Saturday, and Saturday at 0600. Pt first chair time scheduled for 11/13/2021 and pt to arrive at 0530 on first day. Probable discharge tomorrow. SS will continue to follow for discharge planning.
[2021-11-09 14:40] VITALS: BP 101/37
[2021-11-09 18:59] VITALS: BP 118/37
[2021-11-09] MEDS: LORazepam 0.5 MG TABLET PO PRN (20:52)
[2021-11-09] MEDS: cefTRIAXone IV Push 1 GM VIAL. IVP SCH (20:54)
[2021-11-09 22:59] VITALS: BP 106/42
[2021-11-10 03:05] VITALS: BP 111/51
[2021-11-10 05:01] LABS: CALCIUM 6.8 mg/dL (8.5-10.1); CREATININE 3.7 mg/dL (0.7-1.3); GFR 16.8; POTASSIUM 3.4 mmol/L (3.5-5.1)
[2021-11-10] MEDS: LEVOTHYROXINE 100 MCG TABLET PO SCH (05:54)
[2021-11-10 07:00] VITALS: BP 113/72
--- NOTE | 2021-11-10 09:31 | PDOC ---
DATE OF SERVICE DATE: 11/10/21 TIME: 09:31 SUBJECTIVE ROS No new complaints/Concerns no significant RRF .Anticipating dc today OBJECTIVE Vital Signs Vital Signs Date Time Temp Pulse Resp B/P (MAP) Pulse Ox O2 Delivery O2 Flow Rate FiO2 11/10/21 07:00 97.5 77 20 113/72 (86) 94 Nasal Cannula 4.0 97.5 I & 0 Intake and Output 11/10/21 07:00 Intake Total 840 ml Balance 840 ml Intake Oral 840 ml # Voids 1 PHYSICAL EXAM Physical Exam general NAD, HEEN has Bipap Neck supple Lungs decreased at bases Heart: Regular rate, Normal S1, Normal S2, No murmurs, Gallops Abdomen: Normal bowel sounds, Soft, No tenderness, No hepatosplenomegaly, No masses Neuro Grossly normal Psych/Mental Status: Mental status NL, Mood NL no richardson Derm No Rash Ext 1- 2 + LE edema DIAGNOSIS/ASSESSMENT Assessment & Plan New Onset ESRD followed by Dr. Che Initiated on HD via Tunneled HDc on , Dialysis today ; UG 3-4 as tolerated ; Discussed treatment plan with ASHLEY OP chair time- at [facility] starting Saturday. Will schedule for dialysis for tomorrow prior to discharge. Access -Tunneled HDc on 11/06/21 . e has AV fistula placed- has been [address] Ramirez . Not mature . Was scheduled for fu appt with Dr Ramirez today HypoCalcemia - Dialysis today. Currently on Calcitriol PO. Probably will dc in OP dialysis setting . Will follow with Dr García at [facility] Acute hypoxic respiratory stable , On O2 by [place] , new- No Oxygen at home Bilateral pneumonia, possible gram-negative organisms Metabolic acidosis- Resolved after 1 st dialysis on 11/06 Anemia - required 1 unit PRBC transfusion. Hgb stable Acute on chronic combined systolic and diastolic heart failure compensated. 2D echo showed LVEF 30% with severe hypokinesis of mid to distal anterior and anteroseptal patterson Non-STEMI - s/p Cardiac cath on 11/07/21- Severe three-vessel coronary artery disease; Per Cardiology Cardiothoracic surgery consultation for possible coronary artery bypass surgery. If he is deemed a poor surgical candidate, con bridal gown fitter viability study for LAD territory and possibly percutaneous revascularization with hemodynamic support from Impella percutaneous ventricular assist device.. Patient requesting CTS consult to [facility] History of DARRELL compliant with CPAP History of gastric bypass History of diabetes mellitus type 2, diet controlled COMMENT/RELEVANT DATA Meds Current Medications Medications (Trade) Dose Ordered Sig/Catherine Start Time Stop Time Status Last Admin Dose Admin Acetaminophen (Tylenol) 650 mg PRN Q6HRS PRN 11/05/21 10:00 Albuterol/ Ipratropium (Duoneb) 6 ml 1X ONCE 11/03/21 19:00 11/03/21 19:01 DC 11/03/21 19:24 6 ML Amlodipine Besylate (Norvasc) 10 mg DAILY 11/04/21 10:00 11/09/21 10:10 10 MG Aspirin (Ecotrin) 81 mg DAILYWBKFT 11/08/21 17:00 11/09/21 10:07 81 MG Atorvastatin Calcium (Lipitor) 40 mg DAILY 11/04/21 10:00 11/09/21 10:04 40 MG Azithromycin 500 mg/Sodium Chloride 250 ml @ 250 mls/hr Q24H 11/04/21 21:00 11/07/21 21:59 DC 11/07/21 22:28 250 MLS/HR Calcitriol (Rocaltrol) 0.5 mcg DAILY 11/04/21 10:00 11/09/21 10:07 0.5 MCG Carvedilol (Coreg) 6.25 mg BIDWMEALS 11/04/21 10:00 11/09/21 16:53 6.25 MG Cefazolin Sodium/ Dextrose 50 ml @ 100 mls/hr 1X ONCE 11/06/21 13:00 11/06/21 13:29 DC 11/06/21 13:11 100 MLS/HR Ceftriaxone Sodium (Rocephin) 1 gm Q24H 11/04/21 21:00 11/09/21 20:54 1 GM Cyanocobalamin (Vitamin B-12) 500 mcg DAILY 11/04/21 10:00 11/09/21 10:11 500 MCG Dextrose (Dextrose 50%-Water Syringe) 12.5 gm PRN Q15MIN PRN 11/04/21 09:45 Diphenhydramine HCl (Benadryl) 50 mg 1X ONCE 11/07/21 12:00 11/07/21 12:01 DC 11/07/21 11:59 50 MG Docusate Sodium (Colace) 100 mg PRN DAILY PRN 11/04/21 09:45 Doxazosin Mesylate (Cardura) 2 mg DAILY 11/04/21 10:00 11/09/21 10:05 2 MG Epoetin Aris-epbx (RETACRIT for NON-DIALYSIS PTS) 10,000 unit 1X ONCE 11/04/21 16:00 11/04/21 16:01 DC 11/04/21 16:21 10,000 UNIT Fentanyl Citrate (Fentanyl 2ml Vial) 100 mcg 1X ONCE 11/07/21 11:15 11/07/21 11:18 DC 11/07/21 11:34 75 MCG Furosemide (Lasix) 80 mg 1X ONCE 11/05/21 20:00 11/05/21 20:01 DC 11/05/21 19:24 80 MG Heparin Sodium (Porcine) (Heparin Sodium) 10,000 unit STK-MED ONCE 11/07/21 10:58 11/07/21 10:59 DC Heparin Sodium/ Sodium Chloride (HEPARIN for ARTERIAL LINE FLUSH) 1,000 unit 1X ONCE 11/07/21 11:15 11/07/21 11:18 DC 11/07/21 11:32 1,000 UNIT Hydralazine HCl (Apresoline) 100 mg TID 11/04/21 10:00 11/09/21 10:09 100 MG Info (CONTRAST GIVEN -- Rx MONITORING) 1 each PRN DAILY PRN 11/07/21 11:30 11/09/21 11:29 DC Info (PHARMACY MONITORING -- do not chart) 1 each PRN DAILY PRN 11/09/21 11:45 Iohexol (Omnipaque 300 Mg/ml) 100 ml 1X ONCE 11/07/21 11:15 11/07/21 11:18 DC 11/07/21 11:33 85 ML Lactobacillus Rhamnosus (Culturelle) 1 cap BID 11/04/21 21:00 11/09/21 20:52 1 CAP Levothyroxine Sodium (Synthroid) 200 mcg DAILY06 11/04/21 10:00 11/10/21 05:54 200 MCG Lidocaine HCl (Lidocaine 1% 20ml Vial) 20 ml 1X ONCE 11/07/21 11:15 11/07/21 11:18 DC 11/07/21 11:33 30 ML Lidocaine/ Epinephrine (LIDOCAINE 1%-EPI 1:100,000 Multi-Dose) 15 ml 1X ONCE 11/06/21 13:00 11/06/21 13:02 DC 11/06/21 13:11 15 ML Lorazepam (Ativan Inj) 0.25 mg PRN Q4HRS PRN 11/04/21 09:45 Lorazepam (Ativan) 0.5 mg PRN Q6HRS PRN 11/04/21 09:45 11/09/21 20:52 0.5 MG Losartan Potassium (Cozaar) 100 mg DAILY 11/04/21 10:00 11/09/21 10:06 100 MG Methylprednisolone Sodium Succinate (SOLU-Medrol 125MG VIAL) 125 mg 1X ONCE 11/03/21 19:00 11/03/21 19:01 DC 11/03/21 19:19 125 MG Midazolam HCl (Versed) 5 mg 1X ONCE 11/07/21 11:15 11/07/21 11:18 DC 11/07/21 11:34 5 MG Nitroglycerin (Nitroglycerin) 200 mcg STK-MED ONCE 11/07/21 10:58 11/07/21 10:59 DC Ondansetron HCl (Zofran) 4 mg PRN Q6HRS PRN 11/04/21 09:45 Pantoprazole Sodium (Protonix) 40 mg DAILYAC 11/04/21 10:00 11/09/21 10:09 40 MG Prochlorperazine Edisylate (Compazine) 10 mg PRN Q6HRS PRN 11/04/21 09:45 Sennosides (Senna) 17.2 mg PRN BID PRN 11/04/21 09:45 Sodium Bicarbonate (Sodium Bicarbonate) 1,300 mg TID 11/04/21 15:00 11/09/21 20:53 1,300 MG Sodium Bicarbonate (Sodium Bicarb Adult 8.4% Syr) 50 meq STK-MED ONCE 11/05/21 07:44 11/05/21 07:45 DC Sodium Chloride 1,000 ml @ 400 mls/hr Q2H30M PRN 11/09/21 11:45 11/09/21 23:44 DC Sodium Chloride (Normal Saline Flush) 3 ml QSHIFT PRN 11/07/21 12:15 Verapamil HCl (Verapamil) 5 mg STK-MED ONCE 11/07/21 10:58 11/07/21 10:59 DC Zolpidem Tartrate (Ambien) 2.5 mg PRN QHS PRN 11/04/21 09:45 Lab Laboratory Tests Test 11/10/21 04:30 Sodium Level 141 mmol/L (136-145) Potassium Level 3.4 mmol/L (3.5-5.1) Chloride Level 103 mmol/L (98-107) Carbon Dioxide Level 27 mmol/L (21-32) Anion Gap 11 (6-14) Blood Urea Nitrogen 50 mg/dL (8-26) Creatinine 3.7 mg/dL (0.7-1.3) Estimated GFR (Cockcroft-Gault) 16.8 Glucose Level 121 mg/dL (70-99) Calcium Level 6.8 mg/dL (8.5-10.1) Results All relevant outside records, renal labs, imaging studies, telemetry/EKG's were reviewed. Justicifation of Admission Dx: Justifications for Admission: Justification of Admission Dx: Yes ANGÉLICA FOSTER MD Nov 10, 2021 09:31
[2021-11-10] MEDS: LACTOBACILLUS RHAMNOSUS GG 1 CAPSULE. PO SCH (10:01)
[2021-11-10] MEDS: PANTOPRAZOLE 40 MG TABLET.DR. PO SCH (10:02)
[2021-11-10] MEDS: CYANOCOBALAMIN (VITAMIN B-12) 1,000 MCG TABLET. PO SCH (10:02)
[2021-11-10] MEDS: ASPIRIN ENTERIC COATED 81 MG TABLET.DR. PO SCH (10:02)
[2021-11-10] MEDS: DOXAZOSIN MESYLATE 4 MG TABLET. PO SCH (10:03)
[2021-11-10] MEDS: ATORVASTATIN CALCIUM 40 MG TABLET. PO SCH (10:03)
[2021-11-10] MEDS: CALCITRIOL 0.25 MCG CAPSULE. PO SCH (10:03)
[2021-11-10] MEDS: LOSARTAN POTASSIUM 50 MG TABLET. PO SCH (10:04)
[2021-11-10] MEDS: SODIUM BICARBONATE 650 MG TABLET. PO SCH ×2 (10:04→14:00)
[2021-11-10] MEDS: FUROSEMIDE 80 MG TABLET. PO SCH (10:05)
[2021-11-10] MEDS: CARVEDILOL 6.25 MG TABLET. PO SCH ×2 (10:06→17:22)
[2021-11-10] MEDS: HEPARIN for SUB-Q USE 5,000 UNIT/ML VIAL. SQ SCH (10:08)
[2021-11-10] MEDS ORDERED: DIALYSIS PATIENT. MC PRN ×2 (10:15)
[2021-11-10] MEDS ORDERED: IV NORMAL SALINE 1000ML BAG 1,000 ML IV PRN ×2 (10:15)
[2021-11-10 10:35] VITALS: BP 113/93
--- NOTE | 2021-11-10 12:11 | PDOC ---
PROGRESS NOTES Date of Service: DATE: 11/10/21 TIME: 12:11 Subjective Subjective No new complaints Objective Objective Vital Signs Date Time Temp Pulse Resp B/P (MAP) Pulse Ox O2 Delivery O2 Flow Rate FiO2 11/10/21 10:35 97.6 75 20 113/93 (100) 93 Nasal Cannula 2.0 97.6 Intake and Output 11/10/21 07:00 Intake Total 840 ml Balance 840 ml Intake Oral 840 ml # Voids 1 Physical Exam Abdomen: Normal bowel sounds, Soft, No tenderness, No hepatosplenomegaly, No masses Heart: Regular rate, Normal S1, Normal S2, No murmurs, Gallops Extremities: No clubbing, Other (1+ pitting edema) General: Alert, Oriented X3, Cooperative HEENT: Atraumatic Lungs: Other (DECREASED IN BASES BILAT) Neuro: Normal speech Psych/Mental Status: Mental status NL, Mood NL Skin: No rashes Assessment Assessment 1. Acute hypoxic respiratory failure secondary to combination of bilateral pneumonia and acute on chronic systolic CHF: Improved 2. Acute on chronic systolic heart failure: improved after fluid removal with hemodialysis 3. Ischemic cardiomyopathy; Echo with LVEF 30% 4. CAD; [facility] with severe three-vessel coronary artery disease. He is currently chest pain-free. Patient would benefit from CABG. He would like to get this done at [facility]. We will set up consultation as an outpatient. 5. End-stage renal disease, hyperkalemia: Patient has AV fistula placed in the recent past. HD initiated 6. Hypertension: Controlled 7. Hypothyroidism: Continue levothyroxine 8. Hyperlipidemia: Continue statin therapy 9. Anemia; s/p transfusion Plan Plan of Care Problems Medical Problems: (1) Elevated troponin Status: Acute (2) Hypoxia Status: Acute (3) Person under investigation for COVID-19 Status: Acute (4) Pneumonia Status: Acute Comment Review of Relevant I have reviewed the following items swathi (where applicable) has been applied. Labs Laboratory Tests Test 11/10/21 04:30 Sodium Level 141 mmol/L (136-145) Potassium Level 3.4 mmol/L (3.5-5.1) Chloride Level 103 mmol/L (98-107) Carbon Dioxide Level 27 mmol/L (21-32) Anion Gap 11 (6-14) Blood Urea Nitrogen 50 mg/dL (8-26) Creatinine 3.7 mg/dL (0.7-1.3) Estimated GFR (Cockcroft-Gault) 16.8 Glucose Level 121 mg/dL (70-99) Calcium Level 6.8 mg/dL (8.5-10.1) Microbiology 11/03/21 Respiratory Culture Gram Stain - Final, Complete 11/03/21 Blood Culture - Final, Complete Staphylococcus Epidermidis Medications Current Medications Info (PHARMACY MONITORING -- do not chart) 1 each PRN DAILY PRN MC SEE COMMENTS; Start 11/10/21 at 10:15 Info (PHARMACY MONITORING -- do not chart) 1 each PRN DAILY PRN MC SEE COMMENTS; Start 11/10/21 at 10:15; Status UNV Sodium Chloride 1,000 ml @ 400 mls/hr Q2H30M PRN IV PATENCY; Start 11/10/21 at 10:15; Stop 11/10/21 at 22:14 Sodium Chloride 1,000 ml @ 1,000 mls/hr Q1H PRN IV hypotension; Start 11/10/21 at 10:15; Stop 11/10/21 at 16:14 Vitals/I & O Vital Sign - Last 24 Hours 11/09/21 11/09/21 11/09/21 11/09/21 14:00 14:40 16:53 18:59 Temp 97.6 97.9 97.6 97.9 Pulse 72 71 76 73 Resp 19 18 B/P (MAP) 101/37 101/37 (58) 113/64 118/37 (64) Pulse Ox 95 92 O2 Delivery Nasal Cannula Nasal Cannula O2 Flow Rate 4.0 4.0 11/09/21 11/09/21 11/09/21 11/09/21 19:30 21:00 22:59 23:57 Temp 97.8 97.8 Pulse 73 72 Resp 22 B/P (MAP) 118/37 106/42 (63) Pulse Ox 97 99 O2 Delivery Nasal Cannula BiPAP/CPAP BiPAP/CPAP O2 Flow Rate 3.0 11/10/21 11/10/21 11/10/21 11/10/21 03:05 03:57 07:00 10:03 Temp 97.9 97.5 97.9 97.5 Pulse 73 77 75 Resp 20 20 B/P (MAP) 111/51 (71) 113/72 (86) 126/55 Pulse Ox 97 100 94 O2 Delivery BiPAP/CPAP BiPAP/CPAP Nasal Cannula O2 Flow Rate 4.0 11/10/21 11/10/21 11/10/21 11/10/21 10:04 10:05 10:05 10:06 Pulse 75 75 75 75 B/P (MAP) 126/55 126/55 126/55 126/55 11/10/21 10:35 Temp 97.6 97.6 Pulse 75 Resp 20 B/P (MAP) 113/93 (100) Pulse Ox 93 O2 Delivery Nasal Cannula O2 Flow Rate 2.0 Intake and Output 11/09/21 11/09/21 11/10/21 15:00 23:00 07:00 Intake Total 350 ml 490 ml 0 ml Balance 350 ml 490 ml 0 ml DAVID COFFMAN MD Nov 10, 2021 12:11
--- NOTE | 2021-11-10 13:16 | NUR ---
SS following up with discharge planning. SS reviewed pt chart and discussed with pt RN. Pt is currently requiring oxygen at four liters nasal canula. COVID19 negative. Pt had heart cath on 11/07/2021. Trip vessel disease. Non-emergent per cardiology. Pt does not require transfer at this time. Pt has no home oxygen. Six minute walk completed and script received for oxygen. Script and clinical phoned and faxed to [facility], ; fax [phone]. Oxygen tank provided to pt for home. Pt has confirmed outpatient hemodialysis chair time at [facility], ; fax [phone], Saturday, Saturday, and Saturday at 0600. Pt first chair time scheduled for 11/13/2021 and pt to arrive at 0530 on first day. Pt's RN notified. Discharge order on the chart for home with self care.
[2021-11-10 17:22] VITALS: BP 155/58
[2021-11-10] MEDS ORDERED: ASPI81TA59 PO (17:34)
== END 2021-11-10 19:30 | disposition home or self-care (01) | DRG 871 ==
LOC: ER 17:24 → 5 SOUTH 19:28 → 5 NORTH 21:50 → 6 SOUTH 22:40
PROVIDERS: ADMIT Internal Medicine; ATTEND Internal Medicine
PROC: 5A09357 Assistance with Respiratory Ventilation, Less than 24 Consecutive Hours, Continuous Positive Airway Pressure (ICD-10-PCS; 2021-11-03)
PROC: 5A09357 Assistance with Respiratory Ventilation, Less than 24 Consecutive Hours, Continuous Positive Airway Pressure (ICD-10-PCS; 2021-11-04)
PROC: 30233N1 Transfusion of Nonautologous Red Blood Cells into Peripheral Vein, Percutaneous Approach (ICD-10-PCS; principal; 2021-11-05)
PROC: 5A09357 Assistance with Respiratory Ventilation, Less than 24 Consecutive Hours, Continuous Positive Airway Pressure (ICD-10-PCS; 2021-11-05)
PROC: 5A09357 Assistance with Respiratory Ventilation, Less than 24 Consecutive Hours, Continuous Positive Airway Pressure (ICD-10-PCS; 2021-11-06)
PROC: 5A1D70Z Performance of Urinary Filtration, Intermittent, Less than 6 Hours Per Day (ICD-10-PCS; 2021-11-06)
PROC: 0JH63XZ Insertion of Tunneled Vascular Access Device into Chest Subcutaneous Tissue and Fascia, Percutaneous Approach (ICD-10-PCS; 2021-11-06)
PROC: 02H633Z Insertion of Infusion Device into Right Atrium, Percutaneous Approach (ICD-10-PCS; 2021-11-06)
PROC: B5181ZA Fluoroscopy of Superior Vena Cava using Low Osmolar Contrast, Guidance (ICD-10-PCS; 2021-11-06)
PROC: B548ZZA Ultrasonography of Superior Vena Cava, Guidance (ICD-10-PCS; 2021-11-06)
PROC: 5A09357 Assistance with Respiratory Ventilation, Less than 24 Consecutive Hours, Continuous Positive Airway Pressure (ICD-10-PCS; 2021-11-07)
PROC: 5A1D70Z Performance of Urinary Filtration, Intermittent, Less than 6 Hours Per Day (ICD-10-PCS; 2021-11-07)
PROC: 4A023N7 Measurement of Cardiac Sampling and Pressure, Left Heart, Percutaneous Approach (ICD-10-PCS; 2021-11-07)
PROC: B2111ZZ Fluoroscopy of Multiple Coronary Arteries using Low Osmolar Contrast (ICD-10-PCS; 2021-11-07)
PROC: 5A09357 Assistance with Respiratory Ventilation, Less than 24 Consecutive Hours, Continuous Positive Airway Pressure (ICD-10-PCS; 2021-11-08)
PROC: 5A09357 Assistance with Respiratory Ventilation, Less than 24 Consecutive Hours, Continuous Positive Airway Pressure (ICD-10-PCS; 2021-11-09)
PROC: 5A1D70Z Performance of Urinary Filtration, Intermittent, Less than 6 Hours Per Day (ICD-10-PCS; 2021-11-09)
PROC: 5A09357 Assistance with Respiratory Ventilation, Less than 24 Consecutive Hours, Continuous Positive Airway Pressure (ICD-10-PCS; 2021-11-10)
PROC: 5A1D70Z Performance of Urinary Filtration, Intermittent, Less than 6 Hours Per Day (ICD-10-PCS; 2021-11-10)
DX: A41.9 Sepsis, unspecified organism (principal); J96.01 Acute respiratory failure with hypoxia; I21.4 Non-ST elevation (NSTEMI) myocardial infarction; I50.43 Acute on chronic combined systolic (congestive) and diastolic (congestive) heart failure; N18.6 End stage renal disease; J15.6 Pneumonia due to other Gram-negative bacteria; I13.2 Hypertensive heart and chronic kidney disease with heart failure and with stage 5 chronic kidney disease, or end stage renal disease; N25.81 Secondary hyperparathyroidism of renal origin; D63.1 Anemia in chronic kidney disease; E03.9 Hypothyroidism, unspecified; E11.22 Type 2 diabetes mellitus with diabetic chronic kidney disease; E11.610 Type 2 diabetes mellitus with diabetic neuropathic arthropathy; E78.5 Hyperlipidemia, unspecified; E87.5 Hyperkalemia; G47.33 Obstructive sleep apnea (adult) (pediatric); I25.10 Atherosclerotic heart disease of native coronary artery without angina pectoris; I25.5 Ischemic cardiomyopathy; Z20.822 Contact with and (suspected) exposure to COVID-19; Z87.891 Personal history of nicotine dependence; Z98.84 Bariatric surgery status; Z99.2 Dependence on renal dialysis
CPT/HCPCS: 93458; 96361; 96365; 96375; 99285; G0269; 36415; 36430; 36558; 36600; 71045; 76937; 77001; 80048; 80053; 81001; 82805; 83605; 83735; 83880; 84100; 84484; 85007; 85025; 86317; 86704; 86706; 86850; 86900; 86901; 86920; 87040; 87070; 87340; 87428; 93306; 94618; 94640; 94660; 94760; 99152; 99153; C1750; C1892; C1894; J0456; J0690; J0696; J1200; J1644; J1940; J2250; J2930; J3010; J3490; J7040; J7050; P9016; Q9967; U0003; C8929; G0378; J7030; Q0163